=== PATIENT | female | born 1935 | race Hispanic/Latino ===

== ENCOUNTER 2017-10-01 11:43 | Inpatient (IN) | payer BC, MEDICARE ==
[2017-10-01 11:53] VITALS: BMI 24.4
--- NOTE | 2017-10-01 12:13 | ED PDOC ---
Arrival/HPI - General Chief Complaint: Weakness/Neurological Deficit Time Seen by Provider: 10/01/17 11:57 Historian: Patient - History of Present Illness Narrative History of Present Illness (Text): 10/01/17 12:14 82 year old female, with past medical history of hyperlipidemia, hypertension and right knee "shots", presents to the Emergency department complaining of nausea, vomiting and questionable diarrhea since 2 weeks. Patient states she developed mild shortness of breath few days ago and was given Cipro for sinusitis by her PMD. Patient informs developing adverse effects from the Cipro and discontinued taking the medication and was given "shots" for sinusitis. Patient informs generalized weakness and right flank discomfort today and was referred to the Emergency department by Dr. Jay for evaluation. Patient states taking pepto bismul yesterday and noticed black stool today. Patient currently denies any fever, chills, chest pain, shortness of breath, sick contact, recent travel or any other complaints. PMD: Dr. Jay Time/Duration: > week (2 weeks) Symptom Onset: Gradual Symptom Course: Unchanged Quality: Aching Activities at Onset: Light Context: Home Past Medical History - Provider Review Nursing Documentation Reviewed: Yes - Cardiac Hx Hypertension: Yes - Pulmonary Hx Respiratory Disorders: No - Neurological Hx Neurological Disorder: No - HEENT Hx HEENT Disorder: No - Renal Hx Renal Disorder: No - Endocrine/Metabolic Hx Endocrine Disorders: No - Hematological/Oncological Hx Blood Disorders: No - Integumentary Hx Dermatological Disorder: No - Musculoskeletal/Rheumatological Hx Musculoskeletal Disorders: No - Gastrointestinal Hx Gastrointestinal Disorders: No - Genitourinary/Gynecological Hx Genitourinary Disorders: No - Psychiatric Hx Psychophysiologic Disorder: No Hx Substance Use: No - Surgical History Other/Comment: left hip replacement, 3 pins. Family/Social History - Physician Review Nursing Documentation Reviewed: Yes Family/Social History: No Known Family HX Smoking Status: Never Smoked Hx Alcohol Use: No Hx Substance Use: No Allergies/Home Meds Allergies/Adverse Reactions: Allergies Sulfa (Sulfonamide Antibiotics) Allergy (Verified 10/01/17 16:00) ANAPHYLAXIS Home Medications: Home Meds Medication Instructions Recorded Confirmed Atorvastatin [Lipitor] 10 mg PO DAILY 10/01/17 10/01/17 Losartan [Cozaar] 50 mg PO DAILY 10/01/17 10/01/17 Review of Systems - Physician Review All systems were reviewed & negative as marked: Yes - Review of Systems Constitutional: Normal. absent: Fevers Eyes: Normal ENT: Normal Respiratory: Normal. absent: SOB Cardiovascular: Normal. absent: Chest Pain Gastrointestinal: Abdominal Pain (right flank pain), Diarrhea, Nausea, Vomiting Genitourinary Female: Normal Musculoskeletal: Other (generalized weakness) Skin: Normal Neurological: Normal Endocrine: Normal Hemo/Lymphatic: Normal Psychiatric: Normal Physical Exam Vital Signs Reviewed: Yes Vital Signs Temp Pulse Resp BP Pulse Ox 10/01/17 17:02 98.6 F 88 18 103/66 10/01/17 17:00 98.9 F 82 18 119/85 98 10/01/17 15:00 88 18 103/66 99 10/01/17 13:43 95 H 18 108/56 L 97 10/01/17 11:43 98.6 F 121 H 18 141/77 98 Temperature: Afebrile Blood Pressure: Normal Pulse: Tachycardic Respiratory Rate: Normal Appearance: Positive for: Well-Appearing, Non-Toxic, Comfortable Pain Distress: None Mental Status: Positive for: Alert and Oriented X 3 - Systems Exam Head: Present: Atraumatic, Normocephalic Pupils: Present: PERRL Extroacular Muscles: Present: EOMI Conjunctiva: Present: Normal Mouth: Present: Moist Mucous Membranes Neck: Present: Normal Range of Motion Respiratory/Chest: Present: Clear to Auscultation, Good Air Exchange. No: Respiratory Distress, Accessory Muscle Use Cardiovascular: Present: Regular Rate and Rhythm, Normal S1, S2. No: Murmurs Abdomen: Present: Tenderness (right flank tenderness). No: Distention, Peritoneal Signs Back: Present: Normal Inspection Upper Extremity: Present: Normal Inspection. No: Cyanosis, Edema Lower Extremity: Present: Normal Inspection. No: Edema Neurological: Present: GCS=15, CN II-XII Intact, Speech Normal Skin: Present: Warm, Dry, Normal Color. No: Rashes Psychiatric: Present: Alert, Oriented x 3, Normal Insight, Normal Concentration Medical Decision Making ED Course and Treatment: 10/01/17 12:13 Impression: 82 year old female presents to the Emergency department for generalized weakness and right flank pain. Differential Diagnosis included but are not limited to: Gastroenteritis vs medication reaction Plan: -- EKG -- Labs -- Chest X-ray -- pepcid -- Zofran --IV fluids --Urinalysis -- Reassess and disposition Prior Visits: Notes and results from previous visits were reviewed. Progress Notes: 10/01/17 12:13 EKG: Ordered, reviewed, and independently interpreted the EKG. Rate : 109 BPM Rhythm : Sinus tachycardia Interpretation : sinus tachycardia with occasional pvc. Normal axis. 10/01/17 14:13 Chest X-Ray reviewed by radiologist, shows: Alveolar consolidative changes right upper lobe with a component of volume loss. No comparison studies. 10/01/17 14:30 Chest X-Ray shows left upper lobe Pneumonia. Patient will be kept in airborne isolation to rule out Tuberculosis. 10/01/17 14:[address] Moeller, who is aware and agrees with emergency department management plan, accepts patient under her service for admission and requests Dr. White on consult. 10/01/17 15:[address] White, who is aware and agrees with Emergency department management plan, and accepts consult from Dr. Moeller. - Lab Interpretations Microbiology Results: Microbiology Results 10/01/17 13:15 Blood-Venous Blood Culture - Final NO GROWTH AFTER 5 DAYS 10/01/17 13:15 Blood-Venous Gram Stain - Final TEST NOT PERFORMED 10/01/17 13:35 Blood-Venous Blood Culture - Final NO GROWTH AFTER 5 DAYS 10/01/17 13:35 Blood-Venous Gram Stain - Final TEST NOT PERFORMED Lab Results: 10/01/17 12:00 10/01/17 12:00 Lab Results 10/01/17 12:00: Sodium 134, Potassium 4.4, Chloride 99, Carbon Dioxide 24, Anion Gap 16, BUN 18, Creatinine 0.8, Est GFR ( Amer) > 60, Est GFR (Non- Af Amer) > 60, Random Glucose 109, Calcium 10.1, Total Bilirubin 0.7, AST 105 H , ALT 44, Alkaline Phosphatase 151 H, Lactate Dehydrogenase 4758 H, Total Creatine Kinase 170, Troponin I < 0.01, Total Protein 7.0, Albumin 3.9, Globulin 3.1, Albumin/Globulin Ratio 1.3, Amylase 38, Lipase 19 L 10/01/17 12:00: WBC 17.3 H, RBC 3.67, Hgb 11.6 L, Hct 33.1 L, MCV 90.2, MCH 31.6 , MCHC 35.0, RDW 13.1, Plt Count 321, MPV 9.3, Gran % 74.8 H, Lymph % (Auto) 8.5 L, [place] % (Auto) 16.5 H, Eos % (Auto) 0.1 L, Baso % (Auto) 0.1, Gran # 12.90 H, Lymph # (Auto) 1.5, [place] # (Auto) 2.9 H, Eos # (Auto) 0.0, Baso # (Auto ) 0.02 - RAD Interpretation Radiology Orders: 10/01/17 12:15 CHEST PORTABLE [RAD] [employer] Director: Radiologist - EKG Interpretation Interpreted by ED Physician: Yes Type: 12 lead EKG - Medication Orders Current Medication Orders: Discontinued Medications Acetaminophen (Tylenol 325mg Tab) 650 mg PO Q6H PRN PRN Reason: Fever >100.4 F Last Admin: 10/05/17 08:16 Dose: 650 mg MAR Pain/Vitals Document 10/05/17 08:16 (Rec: 10/05/17 08:16 [id number]) Pain Reassessment Is This A Pain ReAssessment? No Sleep Is patient sleeping during reassessment? No Presence of Pain Presence of Pain Yes Pain Scale Used Pain Scale Used Numeric Location Left, Right or Bilateral Right Upper or Lower Upper Pain Location Body Site Chest Intensity 4 Albuterol/Ipratropium (Duoneb 3 Mg/0.5 Mg (3 Ml) Ud) 3 ml IH Q6 [facility] Stop: 10/02/17 06:01 Last Admin: 10/02/17 07:27 Dose: Albuterol/Ipratropium (Duoneb 3 Mg/0.5 Mg (3 Ml) Ud) 3 ml IH [id number] [facility] Last Admin: 10/03/17 13:06 Dose: Not Given Non-Admin Reason: Patient Refused Albuterol/Ipratropium (Duoneb 3 Mg/0.5 Mg (3 Ml) Ud) 3 ml IH TIDRESP [facility] Last Admin: 10/05/17 13:12 Dose: 3 ml Atorvastatin Calcium (Lipitor) 10 mg PO DAILY [facility] Last Admin: 10/05/17 10:19 Dose: 10 mg Azithromycin (Zithromax) 500 mg PO STAT STA PRN Reason: Protocol Stop: 10/01/17 13:17 Last Admin: 10/01/17 13:39 Dose: 500 mg Famotidine (Pepcid) 20 mg IVP STAT STA Stop: 10/01/17 12:14 Last Admin: 10/01/17 12:28 Dose: 20 mg IVP Administration Document 10/01/17 12:28 EWAnika (Rec: 10/01/17 12:28 MARIONAnika [id number]) Charges for Administration # of IVP Administrations 1 Famotidine (Pepcid) 40 mg PO HS LETA Last Admin: 10/04/17 21:12 Dose: 40 mg Heparin Sodium (Porcine) (Heparin) 5,000 units SC Q12 LETA PRN Reason: Protocol Sodium Chloride (Sodium Chloride 0.9%) 500 mls @ 500 mls/hr IV .Q1H LETA Last Admin: 10/01/17 12:29 Dose: 500 mls/hr eMAR Start Stop Document 10/01/17 12:29 EWAnika (Rec: 10/01/17 12:29 JANICE [id number]) Intravenous Solution Start Date 10/01/17 Start Time 12:29 End Date 10/01/17 End time 13:29 Total Infusion Time 60 Ceftriaxone Sodium (Rocephin 1 Gram Ivpb) 1 gm in 100 mls @ 200 mls/hr IVPB STAT STA PRN Reason: Protocol Stop: 10/01/17 13:46 Last Admin: 10/01/17 13:39 Dose: 200 mls/hr eMAR Start Stop Document 10/01/17 13:39 EWAnika (Rec: 10/01/17 13:39 JANICE [id number]) Intravenous Solution Start Date 10/01/17 Start Time 13:39 End Date 10/01/17 End time 14:09 Total Infusion Time 30 Ceftriaxone Sodium (Rocephin 1 Gram Ivpb) 1 gm in 100 mls @ 100 mls/hr IVPB DAILY LETA PRN Reason: Protocol Stop: 10/10/17 10:01 Last Admin: 10/05/17 10:20 Dose: 100 mls/hr eMAR Start Stop Document 10/05/17 10:20 YRodolfo (Rec: 10/05/17 10:20 ANDREW [id number]) Intravenous Solution Start Date 10/05/17 Start Time 10:20 End Date 10/05/17 End time 11:20 Total Infusion Time 60 Azithromycin (Zithromax 500mg In Ns) 500 mg in 250 mls @ 167 mls/hr IVPB DAILY LETA PRN Reason: Protocol Stop: 10/11/17 10:01 Last Admin: 10/05/17 10:20 Dose: 167 mls/hr eMAR Start Stop Document 10/05/17 10:20 Y (Rec: 10/05/17 10:21 [place] [id number]) Intravenous Solution Start Date 10/05/17 Start Time 11:20 End Date 10/05/17 End time 12:50 Total Infusion Time 90 Sodium Chloride (Sodium Chloride 0.45%) 1,000 mls @ 80 mls/hr IV [id number] LETA Stop: 10/04/17 22:00 Lorazepam (Ativan) 1 mg IVP ONCE ONE PRN Reason: Protocol Stop: 10/03/17 10:06 Last Admin: 10/03/17 13:53 Dose: 1 mg IVP Administration Document 10/03/17 13:53 DSZ (Rec: 10/03/17 13:54 DSZ [place] [id number]) Charges for Administration # of IVP Administrations 1 Behavioural Document 10/03/17 13:53 DSZ (Rec: 10/03/17 13:54 DSZ [place] [id number]) Maintenance Maintenance Dose No Nonmedicinal Nonmedicinal Interventions Redirect Therapeutic Communication Comment before MRI Behavior Behavior for Medication: Anxiety Behavior Comment clastrophobia Re-Assess: Reassess Psych Meds Document 10/03/17 14:23 DSZ (Rec: 10/03/17 14:50 DSZ [place] [id number]) Reassess Psych Med Effective Losartan Potassium (Cozaar) 50 mg PO DAILY [facility] Last Admin: 10/05/17 10:19 Dose: 50 mg MAR Pulse and Blood Pressure Document 10/05/17 10:19 YJ (Rec: 10/05/17 10:20 [place] [id number]) Pulse Pulse Rate (60-90 beats/min) 90 Blood Pressure Blood Pressure (100/60-150/90 mm Hg) 131/74 Morphine Sulfate (Morphine) 4 mg IVP STAT STA Stop: 10/04/17 14:50 Last Admin: 10/04/17 14:49 Dose: 4 mg MAR Pain Assessment Document 10/04/17 14:49 YANETH (Rec: 10/08/17 11:23 YANETH [id number]) Pain Reassessment Is this a pain reassessment? No Sleep Is patient sleeping during reassessment? No Presence of Pain Presence of Pain No IVP Administration Document 10/04/17 14:49 YANETH (Rec: 10/08/17 11:23 YANETH [id number]) Charges for Administration # of IVP Administrations 0 Ondansetron HCl (Zofran Inj) 4 mg IVP STAT STA Stop: 10/01/17 12:14 Last Admin: 10/01/17 12:28 Dose: 4 mg IVP Administration Document 10/01/17 12:28 EWO (Rec: 10/01/17 12:28 EWO [id number]) Charges for Administration # of IVP Administrations 1 Ondansetron HCl (Zofran Inj) 4 mg IVP Q6H PRN PRN Reason: Nausea/Vomiting Oxycodone HCl (Oxycodone Immediate Release Tab) 10 mg PO Q6H PRN PRN Reason: Pain, moderate (4-7) Last Admin: 10/04/17 17:46 Dose: 10 mg MAR Pain Assessment Document 10/04/17 17:46 TAV (Rec: 10/04/17 17:49 TAV [id number]) Pain Reassessment Is this a pain reassessment? No Presence of Pain Presence of Pain Yes Pain Scale Used Pain Scale Used Numeric Location Left, Right or Bilateral Right Upper or Lower Lower Pain Location Body Site Abdomen Description Description Constant Intensity of Pain at present 10 Pain Behavior Moaning Guarding Restlessness Aggravating Factors Changing Position Alleviating Factors/Management Medication Techniques Alleviating Factors Medication Phytonadione (Vitamin K Inj) 10 mg SC ONCE STA Stop: 10/03/17 20:57 Last Admin: 10/03/17 21:45 Dose: 10 mg Subcutaneous Administrations Document 10/03/17 21:45 PCO (Rec: 10/03/17 21:45 PCO [id number]) Injection Site MAR Injection Site Right Abdomen Charges for Administration # of Subcutaneous Administrations 1 Pneumococcal Polyvalent Vaccine (Pneumovax 23 Vaccine) 0.5 ml IM .ONCE ONE Stop: 10/01/17 17:32 Zolpidem Tartrate (Ambien) 5 mg PO HS PRN; Protocol PRN Reason: Insomnia - Scribe Statement The provider has reviewed the documentation as recorded by the Scribe Brittany Greene, training under Wojciech La. All medical record entries made by the Scribe were at my direction and personally dictated by me. I have reviewed the chart and agree that the record accurately reflects my personal performance of the history, physical exam, medical decision making, and the department course for this patient. I have also personally directed, reviewed, and agree with the discharge instructions and disposition. Disposition/Present on Arrival - Present on Arrival Any Indicators Present on Arrival: No History of DVT/PE: No History of Uncontrolled Diabetes: No Urinary Catheter: No History of Decub. Ulcer: No History Surgical Site Infection Following: None - Disposition Have Diagnosis and Disposition been Completed?: Yes Diagnosis: Pneumonia Disposition: HOSPITALIZED Disposition Time: 14:46 Isolation: Airborne Patient Plan: Admission Condition: GOOD
[2017-10-01 12:26] LABS: BASO # 0.02 K/mm3 (0.0-2.0); BASO % 0.1 % (0.0-3.0); EOS % 0.1 % (1.5-5.0); GRAN # 12.9 (1.4-6.5); GRAN % 74.8 % (50.0-68.0); HEMOGLOBIN 11.6 g/dL (12.0-16.0); LYMPH # 1.5 (1.2-3.4); LYMPH % 8.5 % (22.0-35.0); MEAN CELL VOLUME 90.2 fl (80.0-105.0); MEAN CORPUSCULAR HEMOGLOBIN 31.6 pg (25.0-35.0); MEAN PLATELET VOLUME 9.3 fl (7.0-11.0); MONO # 2.9 (0.1-0.6); MONO % 16.5 % (1.0-6.0); RBC 3.67 10^6/uL (3.5-6.1); RED CELL DISTRIBUTION WIDTH 13.1 % (11.5-14.5); WHITE BLOOD COUNT 17.3 10^3/ul (4.5-11.0)
[2017-10-01] MEDS ORDERED: Sodium Chloride 0.9% 500 ML IV SCH (12:30)
[2017-10-01 12:40] LABS: ALB/GLOB RATIO 1.3 (1.1-1.8); ALBUMIN 3.9 g/dL (3.0-4.8); ALT/SGPT 44 U/L (7-56); AMYLASE 38 U/L (35-125); AST/SGOT 105 U/L (14-36); BLOOD UREA NITROGEN 18 mg/dL (7-21); CALCIUM 10.1 mg/dL (8.4-10.5); GFR AFRICAN-AMERICAN > 60; GFR NON-AFRICAN AMERICAN > 60; LIPASE 19 U/L (23-300)
[2017-10-01 12:51] LABS: TROPONIN I < 0.01 ng/mL
[2017-10-01] MEDS ORDERED: cefTRIAXone 1 gm 1 GM/100 ML BAG IVPB STA (13:17)
--- NOTE | 2017-10-01 14:10 | RAD ---
HISTORY: shortness of breath COMPARISON: No prior. FINDINGS: LUNGS: Left upper lobe infiltrate with volume loss. PLEURA: No significant pleural effusion identified, no pneumothorax apparent. CARDIOVASCULAR: No radiographic findings to suggest acute or significant cardiovascular disease. OSSEOUS STRUCTURES: No significant abnormalities. VISUALIZED UPPER ABDOMEN: Normal. OTHER FINDINGS: None. IMPRESSION: Alveolar consolidative changes right upper lobe with a component of volume loss. No comparison studies.
[2017-10-01] MEDS ORDERED: Pneumococcal 23-Valent Vaccine IM ONE (17:31)
[2017-10-02] MEDS: Albuterol-Ipratrop 3 mg / 0.5 (3 ml) UD IH SCH ×5 (02:01→20:08)
--- NOTE | 2017-10-02 08:54 | CARD ---
APPROVED REPORT EKG Measurement Heart [id number] MD [id number] <Conclusion> Sinus tachycardia with one premature ventricular complex PRWP NSSTW changes
[2017-10-02] MEDS: Azithromycin 500MG/NS 250ml 500 MG/250 ML BAG IVPB SCH (09:03)
[2017-10-02] MEDS: cefTRIAXone 1 gm 1 GM/100 ML BAG IVPB SCH (09:03)
[2017-10-02] MEDS ORDERED: Iohexol 240 (50 ml) ONE (09:33)
[2017-10-02 12:39] LABS: HEPATITIS B SURFACE AG Negative (NEGATIVE)
[2017-10-02 12:45] LABS: HEPATITIS A IGM NEGATIVE (NEGATIVE); HEPATITIS B CORE AB NEGATIVE (NEGATIVE)
[2017-10-02 12:56] LABS: HEPATITIS C ANTIBODY NEGATIVE (NEGATIVE)
--- NOTE | 2017-10-02 14:10 | CT ---
PROCEDURE: CT Chest, Abdomen and Pelvis without intravenous contrast HISTORY: Pneumonia, tuberculosis suspected. Gallbladder disease suspected. COMPARISON: None. TECHNIQUE: Oral contrast only. Radiation dose: Total exam DLP = 533.52 mGy-cm. This CT exam was performed using one or more of the following dose reduction techniques: Automated exposure control, adjustment of the mA and/or kV according to patient size, and/or use of iterative reconstruction technique. FINDINGS: CT CHEST WITHOUT CONTRAST: LUNGS: Clear. No nodule, mass or consolidation. MEDIASTINUM: The extensive mediastinal adenopathy including superior mediastinum, middle mediastinum. Bulky disease extends to the right hilum. There is substantial narrowing of the right upper lobe bronchus which measures less than 4 mm. There is postobstructive pneumonitis with volume loss in the right upper lobe and a peripheral pulmonary nodule 1.2 compensatory hyperinflation of the right lower lobe. No suspicious findings in the left lung. LYMPH NODES: Mediastinal and hilar adenopathy is less extensive. PLEURA: Unremarkable. No pneumothorax. No pleural fluid. BONES: Dextroscoliosis, mild. No suspicious osseous abnormalities. OTHER FINDINGS: Heterogeneous thyroid with intrathoracic extension and a cystic nodule, mass elective thyroid ultrasound recommended. CT ABDOMEN AND PELVIS: LIVER: Extensive hepatic metastatic disease with large masses in both lobes of the liver. The largest lesion in the right hepatic lobe is either hemorrhagic or contains associated calcifications. This mass measures 8 x 8.7 cm. . GALLBLADDER AND BILE DUCTS: Cholelithiasis without CT evidence of acute cholecystitis. PANCREAS: Unremarkable. No gross lesion or ductal dilatation. SPLEEN: Unremarkable. ADRENALS: Enlargement of both adrenal glands particularly the left suspicious for metastatic disease. KIDNEYS AND URETERS: Unremarkable. No hydronephrosis. No solid mass. VASCULATURE: Unremarkable. No aortic aneurysm. BOWEL: Unremarkable. No obstruction. No gross mural thickening. APPENDIX: Normal appendix. PERITONEUM: Unremarkable. No free fluid. No free air. LYMPH NODES: Retroperitoneal, are peripancreatic lymphadenopathy. Tumor is inseparable from the pancreas, sensitivity diminished by absence of intravenous contrast. BLADDER: Unremarkable. REPRODUCTIVE: Unremarkable. BONES: No acute fracture. Grade 1 anterolisthesis L4-5 with associated spondylolysis. OTHER FINDINGS: Atrophy in the adductor muscles and gluteal muscles on the right. IMPRESSION: 1. Extensive tumor in the thorax primarily tumor invading the right upper lobe bronchus with directs extension into the right hilum. Mediastinal adenopathy is considerable. Circumferential narrowing of the right upper lobe bronchus (2 mm lumen) has resulted in postobstructive pneumonitis. A peripheral 10 mm pulmonary nodule identified. 2. Hepatomegaly, widely disseminated hepatic metastatic disease. Likely necrotic/hemorrhagic metastasis accounting for findings in the right lobe. 3. Upper abdominal/ retroperitoneal adenopathy. 4. Enlarged adrenal glands bilaterally suspicious for tumor. Incidental findings: Cholelithiasis without CT evidence of acute cholecystitis. Intrathoracic extension of the left thyroid lobe with a 2 cm cystic nodule. Elective followup recommended
[2017-10-02] MEDS ORDERED: oxyCODONE 10 mg Immediate Release Tab PO PRN (17:30)
--- NOTE | 2017-10-02 17:59 | HP ---
DATE OF EXAM: 10/01/2017 HISTORY OF PRESENT ILLNESS: Ms. Lee is an 82-year-old female presented to the ED with nausea and vomiting, diarrhea for 2 weeks. She was feeling weak and tired, cough with expectoration. no fever. She has got Cipro as outpatient which did not relieve her symptoms. Also, complaining of generalized abdominal pain, shortness of breath. Chest x-ray showed right upper lobe infiltrate, done in the ED. She has history of hypertension, blood pressure controlled with current medication. She was in good health prior to admission to the hospital. Denies any weight loss. PAST MEDICAL HISTORY: Hypertension. PAST SURGICAL HISTORY: Left hip replacement. PERSONAL HISTORY: Never smoked. No history of alcohol abuse. FAMILY HISTORY: Noncontributory. No positive family history in mother or father. SOCIAL HISTORY: Lives at home. ALLERGIES: SULFA CAUSES ANAPHYLAXIS. HOME MEDICATIONS: Lipitor 10 mg daily, Cozaar 50 mg daily. REVIEW OF SYSTEMS: As per HPI. Rest of 12-point review of systems reviewed negative. PHYSICAL EXAMINATION: GENERAL: Comfortable in bed,in no acute distress. VITAL SIGNS: Temperature 98.6, heart rate 88 per minute, respiratory rate 18 per minute, blood pressure 103/66, pulse ox is 99% on room air. HEENT: Pallor positive. NECK: No lymphadenopathy. CHEST: Bilateral rhonchi present, bilateral crepitations present. Air entry decreased on the right side. ABDOMEN: Soft and nontender. No hepatosplenomegaly. EXTREMITIES: No edema. CENTRAL NERVOUS SYSTEM: Alert, oriented x3. No focal sensory motor deficit. SKIN: Warm and dry. No rash. LABORATORY DATA: White count 17.3, hemoglobin 11.6, hematocrit 33.1, platelet 321. Sodium 134, potassium 4.4, BUN 18, creatinine 0.8, and glucose 109. Chest x-ray, right upper lobe infiltrate. Received Zithromax and ceftriaxone in the ED. ASSESSMENT: 1. Right upper lobe pneumonia. 2. Hypertension. 3. Rule out tuberculosis. PLAN: She will be admitted to the hospital with respiratory isolation, ID consultation of Dr. White requested. Urine culture, blood culture sent. Ceftriaxone and Zithromax will be continued for right upper lobe pneumonia. We will continue antihypertensive, losartan 50 mg daily. Continue Lipitor 10 mg daily, Tylenol 650 every 6 hours p.r.n. No pain issues. We will continue to monitor blood work closely. Leukocytosis, white count 17.3, likely related to pneumonia. We will send also UA, urine culture. Hepatitis B and C serologies requested. Annia Moeller MD
--- NOTE | 2017-10-02 18:29 | PN ---
DATE: 10/02/2017 FOLLOWUP NOTE SUBJECTIVE: She is comfortable in bed, in no acute distress. She has afebrile during the hospitalization. Current temperature is 98.7. Cough has improved slightly. No expectoration. No chest pain. No shortness of breath. REVIEW OF SYSTEMS: As per HPI. Rest of 12-point review of systems reviewed negative. MEDICATIONS: Lipitor 10 g daily, Zithromax 500 daily IV, ceftriaxone 1 g daily IV, Cozaar 50 mg daily. PHYSICAL EXAMINATION: GENERAL: Comfortable in bed, in no acute distress. VITAL SIGNS: Temperature 98.7, heart rate 100 per minute, blood pressure 120/56, respiratory rate 18 per minute, oxygen saturation 98% on room air. HEENT: Pallor positive. NECK: No lymphadenopathy. CHEST: Air entry decreased bilateral. CARDIOVASCULAR: Tachycardia present. ABDOMEN: Soft, nontender. No hepatosplenomegaly. EXTREMITIES: No edema. SPINE: Nontender. SKIN: No petechiae. No rash. LABORATORY DATA: White count 17.3, hemoglobin 11.6, hematocrit 33.1, platelet count 321. [id number], potassium 4.4, creatinine 0.8. CT chest, abdomen and pelvis ordered. CT chest showed extensive bulky tumor in the right hilar area giving to postobstructive pneumonia, bulky metastatic disease in the liver, retroperitoneal lymphadenopathy. ASSESSMENT: 1. Possible lung cancer with metastatic disease in the abdomen - liver, nodes. 2. Postobstructive pneumonia. 3. Hypertension. 4. Leukocytosis. PLAN: CT chest, abdomen and pelvis done today, imaging reviewed as dictated above. We will discuss with the family tomorrow these CAT scan findings. We will arrange for CT-guided biopsy, either of the lung or from the liver based on the accessibility of the lesion. I will discuss with Dr. Tejas Msoher tomorrow. We will continue IV antibiotic, ceftriaxone and Zithromax. We will add the DuoNeb every 6 hours scheduled and p.r.n. Oxycodone p.r.n. for pain. We will do Pepcid 20 mg IV daily. We will discuss with Dr. White. respiratory isolation can be discontinued. Annia Moeller MD MTDD
--- NOTE | 2017-10-02 20:30 | CON ---
DATE: 10/02/2017 LOCATION: The patient is seen in room 575, bed 1. CHIEF COMPLAINT: Abdominal pain times 2 weeks. HISTORY OF PRESENT ILLNESS: This is an 82-year-old female with past medical history significant only for hypertension and hyperlipidemia who is admitted with complaints of nausea, vomiting, occasional diarrhea, abdominal pain. She had shortness of breath, was given Cipro for sinusitis by her primary and developed SIDE EFFECTS TO CIPRO and she stopped taking the medication, was given questionable intravenous or IM injections for her sinusitis and now is here with abdominal pain. The patient is coughing. In the Emergency Room, she was found to have an upper lobe infection, tuberculosis was entertained. Infectious Disease consultation requested. The patient states that she feels weak. She is having fevers. She has no chills. She does have cough, it is productive, yellowish in color. She has had weight loss, although by 5 pounds in the past week or two since she has been ill. She denies any dysuria or frequency and no headaches. PAST MEDICAL HISTORY: Significant for hypertension, hyperlipidemia, and cataract. PAST SURGICAL HISTORY: Significant for bilateral cataract surgery and thyroid surgery. With the thyroid surgery, she had radiation. ALLERGIES: THE PATIENT HAS ALLERGIES TO SULFA. MEDICATIONS AT HOME: Include losartan and atorvastatin. PHYSICAL EXAMINATION: GENERAL: She is in bed, in no acute distress, answering questions. VITAL SIGNS: Temperature of 101.2; heart rate of 102, it was up to 121; blood pressure is 121/62; O2 saturation is at 95% on room air. The patient's BMI is 24.4. HEENT: Unremarkable. NECK: Supple. LUNGS: Have decreased breath sounds. HEART: Normal S1, S2. ABDOMEN: Soft, nontender. No rebound or guarding. No masses. LABORATORY DATA: Reveals a white count of 17,300, hemoglobin of 11, platelets of 321, 74% granulocytosis. Chemistries reveal AST is 105, ALT is 151, LDH is 4758, lipase is 19, amylase of 38. The patient had a chest x-ray, which was reported to be left upper lobe infiltrate versus volume loss, alveolar consolidative changes in the right upper lobe. It was initially read as the left upper lobe. Reviewed a chest x-ray, appears to be a right upper lobe and right lower lobe. ASSESSMENT AND PLAN: She is an 82-year-old female with hypertension, hyperlipidemia, cataract, abdominal pain, nausea, and vomiting, now has sepsis with community-acquired pneumonia, must rule out Legionella.,due to long smoking hx malignancy is must be entertained doubt tuberculosis. This patient was born in [facility], has never been outside of [place], never had any travel, has never had any exposure to tuberculosis. She is a long-time smoker, just stopped a year ago. No alcohol abuse. We will treat the patient with azithromycin and ceftriaxone. We will order a urinalysis, urine culture, blood cultures, QuantiFERON, and do a vasculitis workup. We will also order a CT of the abdomen and pelvis to try to explain the nausea and vomiting that she initially started, possible gallbladder disease; hepatitis profile and procalcitonin, TB workup, Legionella workup, and we will follow closely with you. Isidro White MD MTDD
[2017-10-03] MEDS: Albuterol-Ipratrop 3 mg / 0.5 (3 ml) UD IH SCH ×5 (02:35→20:35)
[2017-10-03 07:27] LABS: BASO # 0.02 K/mm3 (0.0-2.0); BASO % 0.2 % (0.0-3.0); EOS # 0.1 (0.0-0.7); EOS % 0.4 % (1.5-5.0); GRAN # 8.24 (1.4-6.5); GRAN % 73.8 % (50.0-68.0); HEMOGLOBIN 9.7 g/dL (12.0-16.0); LYMPH # 1.4 (1.2-3.4); LYMPH % 12.5 % (22.0-35.0); MEAN CELL VOLUME 89.3 fl (80.0-105.0); MEAN CORPUSCULAR HEMOGLOBIN 30.4 pg (25.0-35.0); MEAN PLATELET VOLUME 9.3 fl (7.0-11.0); MONO # 1.5 (0.1-0.6); MONO % 13.1 % (1.0-6.0); RBC 3.19 10^6/uL (3.5-6.1); WHITE BLOOD COUNT 11.2 10^3/ul (4.5-11.0)
[2017-10-03 07:46] LABS: ALB/GLOB RATIO 1.1 (1.1-1.8); ALBUMIN 3.4 g/dL (3.0-4.8); ALT/SGPT 56 U/L (7-56); AST/SGOT 86 U/L (14-36); BLOOD UREA NITROGEN 11 mg/dL (7-21); CALCIUM 8.8 mg/dL (8.4-10.5); GFR AFRICAN-AMERICAN > 60; GFR NON-AFRICAN AMERICAN > 60
--- NOTE | 2017-10-03 09:30 | US ---
HISTORY: size of CBD COMPARISON: None. TECHNIQUE: Sonographic evaluation of the abdomen. FINDINGS: LIVER: Enlarged liver with heterogeneous echogenicity and a large left lobe mass measuring 7.2 centimeters. Additional large right lobe masses measuring 8.0 centimeters and 9.0 centimeters. GALLBLADDER: Gallstones. COMMON BILE DUCT: Measures mm. No stones. No dilatation. PANCREAS: Unremarkable as visualized. No mass. No ductal dilatation. RIGHT KIDNEY: Measures cm. Normal echogenicity. No calculus, mass, or hydronephrosis. LEFT KIDNEY: Measures cm. Normal echogenicity. No calculus, mass, or hydronephrosis. SPLEEN: Normal in size and contour. No mass. AORTA: No aneurysmal dilatation. IVC: Unremarkable. OTHER FINDINGS: None. IMPRESSION: Multiple large hepatic masses. Gallstones.
--- NOTE | 2017-10-03 10:11 | CP.PCM.PN ---
<Pepper Gordillo - Last Filed: 10/03/17 10:06> Subjective - Date & Time of Evaluation Date of Evaluation: 10/03/17 Time of Evaluation: 07:00 - Subjective Subjective: Medicine Progress Note for Darrell Wilde PGY3 Patient seen and examined at bedside. Patient reports she did not sleep well overnight due to isolation room. Patient was deemed to not need isolation and it was d/c. As per nursing staff, patient had Tmax of 100.5 overnight. This am, patient complains of dry cough. She denies chest pain, shortness of breath, nausea/vomiting/diarrhea, numbness/tingling, dysuria/hematuria or pain. Objective - Vital Signs/Intake and Output Vital Signs (last 24 hours): Temp Pulse Resp BP Pulse Ox 98.5 F 101 H 20 115/70 97 10/03/17 06:00 10/03/17 06:00 10/03/17 06:00 10/03/17 06:00 10/03/17 06:00 Intake and Output: 10/03/17 10/03/17 06:59 18:59 Intake Total 720 Balance 720 - Medications Medications: Current Medications Acetaminophen (Tylenol 325mg Tab) 650 mg PO Q6H PRN PRN Reason: Fever >100.4 F Last Admin: 10/02/17 17:42 Dose: 650 mg Albuterol/Ipratropium (Duoneb 3 Mg/0.5 Mg (3 Ml) Ud) 3 ml IH [id number] [facility] Last Admin: 10/03/17 07:27 Dose: Not Given Atorvastatin Calcium (Lipitor) 10 mg PO DAILY [facility] Last Admin: 10/02/17 09:03 Dose: 10 mg Ceftriaxone Sodium (Rocephin 1 Gram Ivpb) 1 gm in 100 mls @ 100 mls/hr IVPB DAILY [facility] PRN Reason: Protocol Stop: 10/10/17 10:01 Last Admin: 10/02/17 09:03 Dose: 100 mls/hr Azithromycin (Zithromax 500mg In Ns) 500 mg in 250 mls @ 167 mls/hr IVPB DAILY [facility] PRN Reason: Protocol Stop: 10/11/17 10:01 Last Admin: 10/02/17 09:03 Dose: 167 mls/hr Lorazepam (Ativan) 1 mg IVP ONCE ONE PRN Reason: Protocol Stop: 10/03/17 10:06 Losartan Potassium (Cozaar) 50 mg PO DAILY [facility] Last Admin: 10/02/17 09:03 Dose: 50 mg Oxycodone HCl (Oxycodone Immediate Release Tab) 10 mg PO Q6H PRN PRN Reason: Pain, moderate (4-7) - Labs Labs: 10/03/17 07:20 10/03/17 07:20 - Constitutional Appears: No Acute Distress - Head Exam Head Exam: ATRAUMATIC, NORMAL INSPECTION, NORMOCEPHALIC - Eye Exam Eye Exam: Normal appearance Pupil Exam: NORMAL ACCOMODATION - ENT Exam ENT Exam: Mucous Membranes Moist - Respiratory Exam Respiratory Exam: Clear to Ausculation Bilateral, NORMAL BREATHING PATTERN. absent: Rales, Rhonchi, Wheezes - Cardiovascular Exam Cardiovascular Exam: REGULAR RHYTHM, +S1, +S2. absent: Gallop, Rubs, Murmur - GI/Abdominal Exam GI & Abdominal Exam: Soft, Normal Bowel Sounds. absent: Rigid, Tenderness, Mass , Rebound - Extremities Exam Extremities Exam: absent: Pedal Edema - Neurological Exam Neurological Exam: Alert, Awake, CN II-XII Intact, Oriented x3 - Psychiatric Exam Psychiatric exam: Normal Affect, Normal Mood - Skin Skin Exam: Dry, Warm Assessment and Plan - Assessment and Plan (Free Text) Assessment: This is an 82yo female with past medical history of HTN, dyslipidemia, former heavy smoker who was admitted for 1. Post obstructive pneumonia - secondary to R lung ca partially obstructing R bronchus - unlikely tuberculosis 2. Lung ca - seen on CT with possible liver mets- seen on US and CT 3. HTN 4. Dyslipidemia Plan: Oncology on consult. Imaging was reviewed. Abdominal US showed large liver masses. Patient will have brain MRI to r/o mets. ID is also on consult. Patient is on Rocephin and Zithromax. Continue pain control and Duonebs. Continue Lipitor and Cozaar. Oncology discussed possible lung biopsy as per IR. Will await after MRI results. Patient is on GI and DVT prophylaxis. Case seen, discussed and reviewed with Dr. Zaragoza. Darrell Gordillo PGY3 <Dion Zaragoza - Last Filed: 10/04/17 18:25> Objective - Vital Signs/Intake and Output Vital Signs (last 24 hours): Temp Pulse Resp BP Pulse Ox 98 F 115 H 18 168/77 H 95 10/04/17 16:22 10/04/17 17:40 10/04/17 17:40 10/04/17 17:40 10/04/17 16:53 Intake and Output: 10/04/17 10/04/17 06:59 18:59 Intake Total 100 Balance 100 - Medications Medications: Current Medications Acetaminophen (Tylenol 325mg Tab) 650 mg PO Q6H PRN PRN Reason: Fever >100.4 F Last Admin: 10/02/17 17:42 Dose: 650 mg Albuterol/Ipratropium (Duoneb 3 Mg/0.5 Mg (3 Ml) Ud) 3 ml IH TIDRESP [facility] Last Admin: 10/04/17 13:39 Dose: Not Given Atorvastatin Calcium (Lipitor) 10 mg PO DAILY [facility] Last Admin: 10/04/17 10:03 Dose: 10 mg Famotidine (Pepcid) 40 mg PO HS [facility] Last Admin: 10/03/17 21:44 Dose: 40 mg Heparin Sodium (Porcine) (Heparin) 5,000 units SC Q12 [facility] PRN Reason: Protocol Ceftriaxone Sodium (Rocephin 1 Gram Ivpb) 1 gm in 100 mls @ 100 mls/hr IVPB DAILY [facility] PRN Reason: Protocol Stop: 10/10/17 10:01 Last Admin: 10/04/17 10:03 Dose: 100 mls/hr Azithromycin (Zithromax 500mg In Ns) 500 mg in 250 mls @ 167 mls/hr IVPB DAILY [facility] PRN Reason: Protocol Stop: 10/11/17 10:01 Last Admin: 10/03/17 14:51 Dose: 167 mls/hr Sodium Chloride (Sodium Chloride 0.45%) 1,000 mls @ 80 mls/hr IV .[id number] [facility] Stop: 10/04/17 22:00 Losartan Potassium (Cozaar) 50 mg PO DAILY [facility] Last Admin: 10/04/17 10:03 Dose: 50 mg Ondansetron HCl (Zofran Inj) 4 mg IVP Q6H PRN PRN Reason: Nausea/Vomiting Oxycodone HCl (Oxycodone Immediate Release Tab) 10 mg PO Q6H PRN PRN Reason: Pain, moderate (4-7) Last Admin: 10/04/17 17:46 Dose: 10 mg Zolpidem Tartrate (Ambien) 5 mg PO HS PRN; Protocol PRN Reason: Insomnia - Labs Labs: 10/04/17 10:45 10/04/17 10:45 PT 14.6 SECONDS (9.4-12.5) H 10/04/17 10:45 INR 1.26 (0.93-1.08) H 10/04/17 10:45 APTT 27.8 Seconds (25.1-36.5) 10/04/17 10:45 Assessment and Plan - Assessment and Plan (Free Text) Plan: Pt seen and examined yesterday. This is a late entry. I have reviewed the note of the medical practice administrator and agree with it. I have discussed the assessment and plan with the resident. I have reviewed the patient's labs and medications.Pt was given the news about her lung mass and liver mass. She is on Abx. Spoke to Dr Moeller. Cecelia for Dyslipidemia. Brayan for HTN.
[2017-10-03] MEDS: cefTRIAXone 1 gm 1 GM/100 ML BAG IVPB SCH (10:24)
[2017-10-03 10:53] LABS: URINE BILIRUBIN NEGATIVE (NEGATIVE); URINE BLOOD NEGATIVE (NEGATIVE); URINE GLUCOSE (UA) NEGATIVE (NEGATIVE); URINE LEUKOCYTE ESTERASE NEGATIVE Leu/uL (NEGATIVE); URINE PROTEIN NEGATIVE mg/dL (<30 mg/dL); URINE UROBILINOGEN 0.2 E.U./dL (<1 E.U./dL)
[2017-10-03 11:08] LABS: URINE APPEARANCE CLEAR (CLEAR); URINE COLOR LIGHT YELLOW (YELLOW)
[2017-10-03] MEDS ORDERED: Gadodiamide 287 MG/ML VIAL (15ML) IV ONE (14:18)
[2017-10-03] MEDS: Azithromycin 500MG/NS 250ml 500 MG/250 ML BAG IVPB SCH (14:51)
--- NOTE | 2017-10-03 16:45 | MRI ---
PROCEDURE: MRI BRAIN WITH AND WITHOUT CONTRAST HISTORY: Rule out metastases in a patient with a history of lung carcinoma. . COMPARISON: No prior study available for comparison TECHNIQUE: Multiplanar, multisequence MR images of the brain were obtained with and without intravenous contrast enhancement. Approximately 15 cc Omniscan contrast material injected for this exam. Note that the study is limited by motion artifact. FINDINGS: HEMORRHAGE: No acute parenchymal, subarachnoid or extra-axial hemorrhage. . There is a tiny focus of dark T2 signal in the left posterior temporal subcortical region that seen on axial gradient echo weighted sequence series 7, image number 13 which could represent a tiny calcification or focal area of hemosiderin deposition. No other additional of foci of similar signal seen. DWI: No evidence of an acute or early subacute infarctio on diffusion imaging. . BRAIN PARENCHYMA: Re- demonstrated are moderate to fairly significant diffuse and confluent chronic periventricular white matter ischemic changes that extend peripherally into the deep and subcortical regions of both cerebral hemispheres. Multiple more discrete chronic appearing lacunar type infarcts scattered about the deep and subcortical white matter as well as both basal nuclei/ coronal radiata. None of these changes exhibit restricted diffusion or contrast enhancement. No enhancing parenchymal nor extra-axial masses or collections seen at this time to suggest brain metastases. No evidence of abnormal meningeal enhancement. Continued followup interval recommended for surveillance Moderate generalized volume loss. . ENHANCEMENT: As above. VENTRICLES: No obstructive hydrocephalus. CRANIUM: Unremarkable. ORBITS: Changes of bilateral cataract surgery. Orbits and contents otherwise unremarkable PARANASAL SINUSES/MASTOIDS: Clear VASCULAR SYSTEM: The visualized major vascular flow voids at skull base appear patent OTHER FINDINGS: None . IMPRESSION: Limited motion degraded study. No evidence of acute intracranial hemorrhage however there is a small focus of dark T2 signal left posterior temporal region that could represent a nonspecific calcification or hemosiderin deposit. Moderate to significant chronic white matter and basal nuclei ischemic changes. No evidence of acute infarct Moderate generalized volume loss. No enhancing lesions seen to suggest metastases.
[2017-10-03 20:07] LABS: INR 1.19 (0.93-1.08); PARTIAL THROMBOPLASTIN TIME 28.8 Seconds (25.1-36.5); PROTHROMBIN TIME 13.6 SECONDS (9.4-12.5)
[2017-10-03] MEDS ORDERED: Phytonadione 10 mg/ml Inj (Adult) SC STA (20:56)
--- NOTE | 2017-10-03 21:06 | CP.PCM.PN ---
Subjective - Date & Time of Evaluation Date of Evaluation: 10/03/17 Time of Evaluation: 10:45 - Subjective Subjective: Patient is resting comfortably in bed, no fevers. Objective - Vital Signs/Intake and Output Vital Signs (last 24 hours): Temp Pulse Resp BP Pulse Ox 98.4 F 102 H 16 107/61 94 L 10/03/17 17:30 10/03/17 17:30 10/03/17 17:30 10/03/17 17:30 10/03/17 17:30 - Medications Medications: Current Medications Acetaminophen (Tylenol 325mg Tab) 650 mg PO Q6H PRN PRN Reason: Fever >100.4 F Last Admin: 10/02/17 17:42 Dose: 650 mg Albuterol/Ipratropium (Duoneb 3 Mg/0.5 Mg (3 Ml) Ud) 3 ml IH TIDRESP [facility] Last Admin: 10/03/17 20:35 Dose: 3 ml Atorvastatin Calcium (Lipitor) 10 mg PO DAILY [facility] Last Admin: 10/03/17 10:26 Dose: 10 mg Famotidine (Pepcid) 40 mg PO HS [facility] Heparin Sodium (Porcine) (Heparin) 5,000 units SC Q12 [facility] PRN Reason: Protocol Ceftriaxone Sodium (Rocephin 1 Gram Ivpb) 1 gm in 100 mls @ 100 mls/hr IVPB DAILY [facility] PRN Reason: Protocol Stop: 10/10/17 10:01 Last Admin: 10/03/17 10:24 Dose: 100 mls/hr Azithromycin (Zithromax 500mg In Ns) 500 mg in 250 mls @ 167 mls/hr IVPB DAILY [facility] PRN Reason: Protocol Stop: 10/11/17 10:01 Last Admin: 10/03/17 14:51 Dose: 167 mls/hr Losartan Potassium (Cozaar) 50 mg PO DAILY [facility] Last Admin: 10/03/17 10:25 Dose: 50 mg Oxycodone HCl (Oxycodone Immediate Release Tab) 10 mg PO Q6H PRN PRN Reason: Pain, moderate (4-7) Zolpidem Tartrate (Ambien) 5 mg PO HS PRN; Protocol PRN Reason: Insomnia - Labs Labs: 10/03/17 07:20 10/03/17 07:20 PT 13.6 SECONDS (9.4-12.5) H 10/03/17 19:35 INR 1.19 (0.93-1.08) H 10/03/17 19:35 APTT 28.8 Seconds (25.1-36.5) 10/03/17 19:35 - Constitutional Appears: Non-toxic, Chronically Ill - Head Exam Head Exam: NORMAL INSPECTION - ENT Exam ENT Exam: Mucous Membranes Moist - Neck Exam Neck Exam: absent: Meningismus - Respiratory Exam Respiratory Exam: Decreased Breath Sounds - Cardiovascular Exam Cardiovascular Exam: +S1, +S2 - GI/Abdominal Exam GI & Abdominal Exam: Soft. absent: Tenderness Assessment and Plan - Assessment and Plan (Free Text) Plan: Assessment community-acquired pneumonia, associated with post-obstructive pneumonitis with thoracic tumor Plan Continue Rocephin and Zithromax day 2 to complete 5-7 days overall prognosis is poor
--- NOTE | 2017-10-04 05:13 | CP.PCM.PN ---
<Pepper Gordillo - Last Filed: 10/04/17 08:45> Subjective - Date & Time of Evaluation Date of Evaluation: 10/04/17 Time of Evaluation: 07:36 - Subjective Subjective: Medicine Progress Note for Darrell Wilde PGY3 Patient seen and examined at bedside. There were no acute overnight events as per nursing staff. Patient reports her cough and shortness of breath have improved. Her cough is dry without mucus production. She denies chest pain, fever/chills, numbness/tingling, hematuria/dysuria, nausea/vomiting/diarrhea. Objective - Vital Signs/Intake and Output Vital Signs (last 24 hours): Temp Pulse Resp BP Pulse Ox 98.5 F 105 H 22 115/72 94 L 10/03/17 22:00 10/03/17 22:00 10/03/17 22:00 10/03/17 22:00 10/03/17 22:00 - Medications Medications: Current Medications Acetaminophen (Tylenol 325mg Tab) 650 mg PO Q6H PRN PRN Reason: Fever >100.4 F Last Admin: 10/02/17 17:42 Dose: 650 mg Albuterol/Ipratropium (Duoneb 3 Mg/0.5 Mg (3 Ml) Ud) 3 ml IH TIDRESP [facility] Last Admin: 10/03/17 20:35 Dose: 3 ml Atorvastatin Calcium (Lipitor) 10 mg PO DAILY [facility] Last Admin: 10/03/17 10:26 Dose: 10 mg Famotidine (Pepcid) 40 mg PO HS [facility] Last Admin: 10/03/17 21:44 Dose: 40 mg Heparin Sodium (Porcine) (Heparin) 5,000 units SC Q12 [facility] PRN Reason: Protocol Ceftriaxone Sodium (Rocephin 1 Gram Ivpb) 1 gm in 100 mls @ 100 mls/hr IVPB DAILY [facility] PRN Reason: Protocol Stop: 10/10/17 10:01 Last Admin: 10/03/17 10:24 Dose: 100 mls/hr Azithromycin (Zithromax 500mg In Ns) 500 mg in 250 mls @ 167 mls/hr IVPB DAILY [facility] PRN Reason: Protocol Stop: 10/11/17 10:01 Last Admin: 10/03/17 14:51 Dose: 167 mls/hr Losartan Potassium (Cozaar) 50 mg PO DAILY [facility] Last Admin: 10/03/17 10:25 Dose: 50 mg Oxycodone HCl (Oxycodone Immediate Release Tab) 10 mg PO Q6H PRN PRN Reason: Pain, moderate (4-7) Zolpidem Tartrate (Ambien) 5 mg PO HS PRN; Protocol PRN Reason: Insomnia - Labs Labs: 10/03/17 07:20 10/03/17 07:20 PT 13.6 SECONDS (9.4-12.5) H 10/03/17 19:35 INR 1.19 (0.93-1.08) H 10/03/17 19:35 APTT 28.8 Seconds (25.1-36.5) 10/03/17 19:35 - Constitutional Appears: No Acute Distress - Head Exam Head Exam: ATRAUMATIC, NORMAL INSPECTION, NORMOCEPHALIC - Eye Exam Eye Exam: Normal appearance, PERRL Pupil Exam: NORMAL ACCOMODATION - ENT Exam ENT Exam: Mucous Membranes Moist - Respiratory Exam Respiratory Exam: Wheezes (RUQ ), NORMAL BREATHING PATTERN. absent: Rales, Rhonchi, Stridor - Cardiovascular Exam Cardiovascular Exam: REGULAR RHYTHM, +S1, +S2. absent: Gallop, Rubs, Murmur - GI/Abdominal Exam GI & Abdominal Exam: Soft, Normal Bowel Sounds. absent: Tenderness, Mass, Rebound - Extremities Exam Extremities Exam: Normal Inspection. absent: Calf Tenderness, Pedal Edema - Neurological Exam Neurological Exam: Alert, Awake, CN II-XII Intact - Skin Skin Exam: Dry, Warm Assessment and Plan - Assessment and Plan (Free Text) Assessment: This is an 82yo female with past medical history of HTN, dyslipidemia, former heavy smoker who was admitted for 1. Post obstructive pneumonia - secondary to R lung ca partially obstructing R bronchus - unlikely tuberculosis 2. Lung ca - seen on CT with possible liver mets- seen on US and CT - brain MRI negative for mets 3. HTN 4. Dyslipidemia Plan: Continue Rocephin and Zithromax as per ID. Septic workup negative for legionella , and HIV. Hep panel negative. Continue home medications such as Lipitor, and Cozaar. Pain is controlled. Oncology on consult. Patient will get biopsy of the liver today. Continue GI and DVT prophylaxis. Case seen, reviewed and discussed with Darrell Wilde PGY3 <Dion Zaragoza S - Last Filed: 10/04/17 19:14> Objective - Vital Signs/Intake and Output Vital Signs (last 24 hours): Temp Pulse Resp BP Pulse Ox 100.1 F H 97 H 18 138/60 95 10/04/17 18:31 10/04/17 18:00 10/04/17 18:00 10/04/17 18:00 10/04/17 16:53 Intake and Output: 10/04/17 10/05/17 18:59 06:59 Intake Total 100 Balance 100 - Medications Medications: Current Medications Acetaminophen (Tylenol 325mg Tab) 650 mg PO Q6H PRN PRN Reason: Fever >100.4 F Last Admin: 10/04/17 18:31 Dose: 650 mg Albuterol/Ipratropium (Duoneb 3 Mg/0.5 Mg (3 Ml) Ud) 3 ml IH TIDRESP [facility] Last Admin: 10/04/17 13:39 Dose: Not Given Atorvastatin Calcium (Lipitor) 10 mg PO DAILY [facility] Last Admin: 10/04/17 10:03 Dose: 10 mg Famotidine (Pepcid) 40 mg PO HS [facility] Last Admin: 10/03/17 21:44 Dose: 40 mg Heparin Sodium (Porcine) (Heparin) 5,000 units SC Q12 [facility] PRN Reason: Protocol Ceftriaxone Sodium (Rocephin 1 Gram Ivpb) 1 gm in 100 mls @ 100 mls/hr IVPB DAILY [facility] PRN Reason: Protocol Stop: 10/10/17 10:01 Last Admin: 10/04/17 10:03 Dose: 100 mls/hr Azithromycin (Zithromax 500mg In Ns) 500 mg in 250 mls @ 167 mls/hr IVPB DAILY [facility] PRN Reason: Protocol Stop: 10/11/17 10:01 Last Admin: 10/04/17 18:37 Dose: 167 mls/hr Sodium Chloride (Sodium Chloride 0.45%) 1,000 mls @ 80 mls/hr IV .[id number] [facility] Stop: 10/04/17 22:00 Losartan Potassium (Cozaar) 50 mg PO DAILY [facility] Last Admin: 10/04/17 10:03 Dose: 50 mg Ondansetron HCl (Zofran Inj) 4 mg IVP Q6H PRN PRN Reason: Nausea/Vomiting Oxycodone HCl (Oxycodone Immediate Release Tab) 10 mg PO Q6H PRN PRN Reason: Pain, moderate (4-7) Last Admin: 10/04/17 17:46 Dose: 10 mg Zolpidem Tartrate (Ambien) 5 mg PO HS PRN; Protocol PRN Reason: Insomnia - Labs Labs: 10/04/17 10:45 10/04/17 10:45 PT 14.6 SECONDS (9.4-12.5) H 10/04/17 10:45 INR 1.26 (0.93-1.08) H 10/04/17 10:45 APTT 27.8 Seconds (25.1-36.5) 10/04/17 10:45 Assessment and Plan - Assessment and Plan (Free Text) Plan: Pt seen and examined. I have reviewed the note of the medical laboratory scientist and agree with it. I have discussed the assessment and plan with the resident. I have reviewed the patient's labs and medications. Pt for liver bx. Spoke to daughter at bedside to update. She was able to sleep yesterday. Eating well. On Lipitor for dyslipidemia. Cozaar for HTN.
[2017-10-04] MEDS: Albuterol-Ipratrop 3 mg / 0.5 (3 ml) UD IH SCH ×3 (07:27→19:32)
[2017-10-04] MEDS: cefTRIAXone 1 gm 1 GM/100 ML BAG IVPB SCH (10:03)
[2017-10-04 10:53] LABS: BASO # 0.03 K/mm3 (0.0-2.0); BASO % 0.3 % (0.0-3.0); EOS # 0.1 (0.0-0.7); EOS % 0.6 % (1.5-5.0); GRAN # 7.93 (1.4-6.5); GRAN % 73.6 % (50.0-68.0); HEMOGLOBIN 9.9 g/dL (12.0-16.0); LYMPH # 1.5 (1.2-3.4); LYMPH % 13.8 % (22.0-35.0); MEAN CELL VOLUME 91.6 fl (80.0-105.0); MEAN CORPUSCULAR HEMOGLOBIN 30.7 pg (25.0-35.0); MEAN CORPUSCULAR HGB CONC 33.4 g/dl (31.0-37.0); MEAN PLATELET VOLUME 9.3 fl (7.0-11.0); MONO # 1.3 (0.1-0.6); MONO % 11.7 % (1.0-6.0); RBC 3.23 10^6/uL (3.5-6.1); RED CELL DISTRIBUTION WIDTH 13.1 % (11.5-14.5); WHITE BLOOD COUNT 10.8 10^3/ul (4.5-11.0)
[2017-10-04 11:07] LABS: BLOOD UREA NITROGEN 11 mg/dL (7-21); CALCIUM 9.2 mg/dL (8.4-10.5); GFR AFRICAN-AMERICAN > 60; GFR NON-AFRICAN AMERICAN > 60
[2017-10-04 11:39] LABS: INR 1.26 (0.93-1.08); PARTIAL THROMBOPLASTIN TIME 27.8 Seconds (25.1-36.5); PROTHROMBIN TIME 14.6 SECONDS (9.4-12.5)
[2017-10-04] MEDS ORDERED: Lidocaine 1% Inj (20ml) ONE (12:57)
[2017-10-04] MEDS ORDERED: Midazolam 2 MG/2 ML VIAL ONE (12:58)
[2017-10-04] MEDS ORDERED: Sodium Chloride 0.45% 1,000 ML IV SCH (14:15)
[2017-10-04] MEDS ORDERED: Morphine 4 mg/ml ISec IVP STA (14:49)
[2017-10-04] MEDS ORDERED: Morphine 4 mg/ml ISec IVP ONE (14:52)
[2017-10-04] MEDS ORDERED: Morphine 4 mg/ml ISec ONE (14:52)
--- NOTE | 2017-10-04 16:42 | RAD ---
Date of service: 10/04/2017 HISTORY: rt liver bx r/o PTX COMPARISON: 10/01/2017 FINDINGS: LUNGS: No active pulmonary disease. PLEURA: There is a small pleural effusion along the minor fissure. There is no pneumothorax CARDIOVASCULAR: Mild cardiomegaly OSSEOUS STRUCTURES: No significant abnormalities. VISUALIZED UPPER ABDOMEN: Normal. OTHER FINDINGS: None. IMPRESSION: There is a small pleural effusion along the minor fissure. There is no pneumothorax
--- NOTE | 2017-10-04 17:30 | CT ---
PROCEDURE: CT guided liver biopsy. HISTORY: Large right hilar lung mass. Multiple liver lesions. Evaluate for metastatic disease. PHYSICIAN(S): Tejas Mosher MD. TECHNIQUE: The relative risks and indications of the procedure were explained to the patient and consent obtained. The patient was placed supine on the CT scanner and preliminary images through the liver obtained. Conscious sedation and monitoring were provided throughout the procedure by a nurse. Is a 10 cm mass in the superior aspect of the right lobe of the liver with some high attenuation.. A right lateral approach was selected and the area prepped and draped in the usual sterile fashion. 1% Xylocaine was used to anesthetize the skin and soft tissues. A 17-gauge guiding needle was advanced into the 10 cm right liver mass. Its position was confirmed with CT. Using coaxial technique, multiple core biopsies were obtained. The postprocedure images show no evidence of significant hemorrhage. IMPRESSION: 1. CT-guided liver biopsy as described above.
[2017-10-04] MEDS: Azithromycin 500MG/NS 250ml 500 MG/250 ML BAG IVPB SCH (18:37)
[2017-10-04 22:33] VITALS: RESP 20
[2017-10-05 02:55] VITALS: PULSE 90; O2SAT 97
[2017-10-05 06:57] LABS: BASO # 0.03 K/mm3 (0.0-2.0); BASO % 0.2 % (0.0-3.0); EOS # 0.2 (0.0-0.7); EOS % 1.2 % (1.5-5.0); GRAN # 9.97 (1.4-6.5); GRAN % 76.9 % (50.0-68.0); HEMOGLOBIN 9.6 g/dL (12.0-16.0); LYMPH # 1.6 (1.2-3.4); LYMPH % 12.6 % (22.0-35.0); MEAN CELL VOLUME 92.7 fl (80.0-105.0); MEAN CORPUSCULAR HEMOGLOBIN 30.5 pg (25.0-35.0); MEAN CORPUSCULAR HGB CONC 32.9 g/dl (31.0-37.0); MEAN PLATELET VOLUME 9.2 fl (7.0-11.0); MONO # 1.2 (0.1-0.6); MONO % 9.1 % (1.0-6.0); RBC 3.15 10^6/uL (3.5-6.1); RED CELL DISTRIBUTION WIDTH 13.3 % (11.5-14.5)
[2017-10-05] MEDS: Albuterol-Ipratrop 3 mg / 0.5 (3 ml) UD IH SCH ×2 (07:15→13:12)
[2017-10-05 08:59] VITALS: BP 131/74; TEMP 99
[2017-10-05] MEDS: Azithromycin 500MG/NS 250ml 500 MG/250 ML BAG IVPB SCH (10:20)
[2017-10-05] MEDS: cefTRIAXone 1 gm 1 GM/100 ML BAG IVPB SCH (10:20)
--- NOTE | 2017-10-05 10:31 | CP.PCM.DIS ---
<Pepper Gordillo - Last Filed: 10/05/17 10:27> Provider - Provider Date of Admission: 10/01/17 14:46 Attending physician: Dion Zaragoza MD Consults: IR: Dr. Mosher Oncology: Dr. Moeller Time Spent in preparation of Discharge (in minutes): 35 Hospital Course - Lab Results Lab Results: Micro Results 10/03/17 10:15 Urine Urine Culture - Final No Growth (<1,000 CFU/ML) 10/01/17 18:00 Other: Please Indicate Mycobacterial Culture - Preliminary Most Recent Lab Values WBC 13.0 10^3/ul (4.5-11.0) H D 10/05/17 06:40 RBC 3.15 10^6/uL (3.5-6.1) L 10/05/17 06:40 Hgb 9.6 g/dL (12.0-16.0) L 10/05/17 06:40 Hct 29.2 % (36.0-48.0) L 10/05/17 06:40 MCV 92.7 fl (80.0-105.0) 10/05/17 06:40 MCH 30.5 pg (25.0-35.0) 10/05/17 06:40 MCHC 32.9 g/dl (31.0-37.0) 10/05/17 06:40 RDW 13.3 % (11.5-14.5) 10/05/17 06:40 Plt Count 345 10^3/uL (120.0-450.0) 10/05/17 06:40 MPV 9.2 fl (7.0-11.0) 10/05/17 06:40 Gran % 76.9 % (50.0-68.0) H 10/05/17 06:40 Lymph % (Auto) 12.6 % (22.0-35.0) L 10/05/17 06:40 [place] % (Auto) 9.1 % (1.0-6.0) H 10/05/17 06:40 Eos % (Auto) 1.2 % (1.5-5.0) L 10/05/17 06:40 Baso % (Auto) 0.2 % (0.0-3.0) 10/05/17 06:40 Gran # 9.97 (1.4-6.5) H 10/05/17 06:40 Lymph # (Auto) 1.6 (1.2-3.4) 10/05/17 06:40 [place] # (Auto) 1.2 (0.1-0.6) H 10/05/17 06:40 Eos # (Auto) 0.2 (0.0-0.7) 10/05/17 06:40 Baso # (Auto) 0.03 K/mm3 (0.0-2.0) 10/05/17 06:40 Retic Count 0.80 % (0.5-1.5) 10/02/17 09:30 PT 14.6 SECONDS (9.4-12.5) H 10/04/17 10:45 INR 1.26 (0.93-1.08) H 10/04/17 10:45 APTT 27.8 Seconds (25.1-36.5) 10/04/17 10:45 Sodium 139 mmol/L (132-148) 10/04/17 10:45 Potassium 5.0 mmol/L (3.6-5.0) 10/04/17 10:45 Chloride 102 mmol/L (98-107) 10/04/17 10:45 Carbon Dioxide 27 mmol/L (21-33) 10/04/17 10:45 Anion Gap 15 (10-20) 10/04/17 10:45 BUN 11 mg/dL (7-21) 10/04/17 10:45 Creatinine 0.8 mg/dl (0.7-1.2) 10/04/17 10:45 Est GFR ( Amer) > 60 10/04/17 10:45 Est GFR (Non-Af Amer) > 60 10/04/17 10:45 Random Glucose 110 mg/dL (70-110) 10/04/17 10:45 Hemoglobin A1c 6.1 % (4.2-6.5) 10/02/17 09:30 Calcium 9.2 mg/dL (8.4-10.5) 10/04/17 10:45 Total Bilirubin 0.7 mg/dL (0.2-1.3) 10/03/17 07:20 AST 86 U/L (14-36) H 10/03/17 07:20 ALT 56 U/L (7-56) 10/03/17 07:20 Alkaline Phosphatase 154 U/L (38-126) H 10/03/17 07:20 Lactate Dehydrogenase 4758 U/L (333-699) H 10/01/17 12:00 Total Creatine Kinase 170 U/L (35-230) 10/01/17 12:00 Troponin I < 0.01 ng/mL 10/01/17 12:00 Total Protein 6.4 g/dL (5.8-8.3) 10/03/17 07:20 Albumin 3.4 g/dL (3.0-4.8) 10/03/17 07:20 Globulin 3.0 gm/dL 10/03/17 07:20 Albumin/Globulin Ratio 1.1 (1.1-1.8) 10/03/17 07:20 Amylase 38 U/L (35-125) 10/01/17 12:00 Lipase 19 U/L (23-300) L 10/01/17 12:00 Procalcitonin 0.34 NG/ML (0.19-0.49) 10/02/17 09:30 Urine Color Light yellow (YELLOW) 10/03/17 10:30 Urine Appearance Clear (CLEAR) 10/03/17 10:30 Urine pH 6.0 (4.7-8.0) 10/03/17 10:30 Ur Specific [place] <= 1.005 (1.005-1.035) 10/03/17 10:30 Urine Protein Negative mg/dL (<30 mg/dL) 10/03/17 10:30 Urine Glucose (UA) Negative mg/dL (NEGATIVE) 10/03/17 10:30 Urine Ketones Negative mg/dL (NEGATIVE) 10/03/17 10:30 Urine Blood Negative (NEGATIVE) 10/03/17 10:30 Urine Nitrate Negative (NEGATIVE) 10/03/17 10:30 Urine Bilirubin Negative (NEGATIVE) 10/03/17 10:30 Urine Urobilinogen 0.2 E.U./dL (<1 E.U./dL) 10/03/17 10:30 Ur Leukocyte Esterase Negative Adriana/uL (NEGATIVE) 10/03/17 10:30 Stool Occult Blood Negative (NEGATIVE) 10/03/17 09:45 ENID Screen Negative (Negative) 10/02/17 09:30 Hepatitis A IgM Ab Negative (NEGATIVE) 10/02/17 09:30 Hep Bs Antigen Negative (NEGATIVE) 10/02/17 09:30 Hep B Core IgM Ab Negative (NEGATIVE) 10/02/17 09:30 Hepatitis C Antibody Negative (NEGATIVE) 10/02/17 09:30 HIV 1&2 Ag/Ab, 4th Gen Nonreactive (Nonreactive) 10/02/17 09:30 Ur L.pneumophila Ag Negative (NEGATIVE) 10/03/17 10:15 TB Test (QFT) Nil 0.02 IU/mL 10/02/17 09:15 TB Test Mitogen - Nil 0.12 IU/mL 10/02/17 09:15 TB Test TB - Nil 0.00 IU/mL 10/02/17 09:15 TB Test (QFT) Indeterminate (Negative) H 10/02/17 09:15 - Hospital Course Hospital Course: This is an 82yo female with past medical history of HTN, dyslipidemia, former heavy smoker who was admitted for shortness of breath. Labs and imaging were reviewed. Patient was found to have R lung mass that is partially obstructing the R bronchus. CT A/P and abdominal US also showed liver mass as well. MRI brain did not show evidence of mets. Patient was placed on empiric antibiotics. Septic work up was negative. Patient had liver biopsy and pathology is still pending. Patient was evaluated by respiratory therapy and oxygen saturation was at 97% with ambulation. Patient is independent in all ADLs and will be discharged home. She will follow up with PMD and Dr. Moeller next week. She will continue her home medications and is given a prescription for nebulizer kit and Duoneb as needed for shortness of breath. - Date & Time of H&P Date of H&P: 10/02/17 Time of H&P: 07:00 Discharge Exam - Head Exam Head Exam: ATRAUMATIC, NORMAL INSPECTION, NORMOCEPHALIC Discharge Plan - Discharge Medications Prescriptions: Albuterol/Ipratropium [Duoneb 3 MG/3 Ml-0.5 MG/3 Ml 3 Ml] 3 ml IH Q6H PRN #100 neb PRN Reason: Shortness Of Breath oxyCODONE [oxyCODONE Immediate Release Tab] 10 mg PO Q12 PRN #30 tab PRN Reason: Pain, Severe (8-10) Nebulizer Accessories [Reusable Nebulizer Kit] 1 each MC Q6H PRN #1 kit PRN Reason: Shortness Of Breath - Follow Up Plan Condition: GOOD Disposition: HOME/ ROUTINE Instructions: Heart Healthy Diet, Lung Cancer (DC), Liver Cancer (DC) Referrals: Annia Moeller MD [Staff Provider] - <Dion Zaragoza - Last Filed: 10/06/17 19:33> Provider - Provider Date of Admission: 10/01/17 14:46 Attending physician: Dion Zaragoza MD Hospital Course - Lab Results Lab Results: Micro Results 10/03/17 10:15 Urine Urine Culture - Final No Growth (<1,000 CFU/ML) 10/01/17 18:00 Other: Please Indicate Mycobacterial Culture - Preliminary Most Recent Lab Values WBC 13.0 10^3/ul (4.5-11.0) H D 10/05/17 06:40 RBC 3.15 10^6/uL (3.5-6.1) L 10/05/17 06:40 Hgb 9.6 g/dL (12.0-16.0) L 10/05/17 06:40 Hct 29.2 % (36.0-48.0) L 10/05/17 06:40 MCV 92.7 fl (80.0-105.0) 10/05/17 06:40 MCH 30.5 pg (25.0-35.0) 10/05/17 06:40 MCHC 32.9 g/dl (31.0-37.0) 10/05/17 06:40 RDW 13.3 % (11.5-14.5) 10/05/17 06:40 Plt Count 345 10^3/uL (120.0-450.0) 10/05/17 06:40 MPV 9.2 fl (7.0-11.0) 10/05/17 06:40 Gran % 76.9 % (50.0-68.0) H 10/05/17 06:40 Lymph % (Auto) 12.6 % (22.0-35.0) L 10/05/17 06:40 [place] % (Auto) 9.1 % (1.0-6.0) H 10/05/17 06:40 Eos % (Auto) 1.2 % (1.5-5.0) L 10/05/17 06:40 Baso % (Auto) 0.2 % (0.0-3.0) 10/05/17 06:40 Gran # 9.97 (1.4-6.5) H 10/05/17 06:40 Lymph # (Auto) 1.6 (1.2-3.4) 10/05/17 06:40 [place] # (Auto) 1.2 (0.1-0.6) H 10/05/17 06:40 Eos # (Auto) 0.2 (0.0-0.7) 10/05/17 06:40 Baso # (Auto) 0.03 K/mm3 (0.0-2.0) 10/05/17 06:40 Retic Count 0.80 % (0.5-1.5) 10/02/17 09:30 PT 14.6 SECONDS (9.4-12.5) H 10/04/17 10:45 INR 1.26 (0.93-1.08) H 10/04/17 10:45 APTT 27.8 Seconds (25.1-36.5) 10/04/17 10:45 Sodium 139 mmol/L (132-148) 10/04/17 10:45 Potassium 5.0 mmol/L (3.6-5.0) 10/04/17 10:45 Chloride 102 mmol/L (98-107) 10/04/17 10:45 Carbon Dioxide 27 mmol/L (21-33) 10/04/17 10:45 Anion Gap 15 (10-20) 10/04/17 10:45 BUN 11 mg/dL (7-21) 10/04/17 10:45 Creatinine 0.8 mg/dl (0.7-1.2) 10/04/17 10:45 Est GFR ( Amer) > 60 10/04/17 10:45 Est GFR (Non-Af Amer) > 60 10/04/17 10:45 Random Glucose 110 mg/dL (70-110) 10/04/17 10:45 Hemoglobin A1c 6.1 % (4.2-6.5) 10/02/17 09:30 Calcium 9.2 mg/dL (8.4-10.5) 10/04/17 10:45 Total Bilirubin 0.7 mg/dL (0.2-1.3) 10/03/17 07:20 AST 86 U/L (14-36) H 10/03/17 07:20 ALT 56 U/L (7-56) 10/03/17 07:20 Alkaline Phosphatase 154 U/L (38-126) H 10/03/17 07:20 Lactate Dehydrogenase 4758 U/L (333-699) H 10/01/17 12:00 Total Creatine Kinase 170 U/L (35-230) 10/01/17 12:00 Troponin I < 0.01 ng/mL 10/01/17 12:00 Total Protein 6.4 g/dL (5.8-8.3) 10/03/17 07:20 Albumin 3.4 g/dL (3.0-4.8) 10/03/17 07:20 Globulin 3.0 gm/dL 10/03/17 07:20 Albumin/Globulin Ratio 1.1 (1.1-1.8) 10/03/17 07:20 Amylase 38 U/L (35-125) 10/01/17 12:00 Lipase 19 U/L (23-300) L 10/01/17 12:00 Procalcitonin 0.57 NG/ML (0.19-0.49) H 10/05/17 07:30 Urine Color Light yellow (YELLOW) 10/03/17 10:30 Urine Appearance Clear (CLEAR) 10/03/17 10:30 Urine pH 6.0 (4.7-8.0) 10/03/17 10:30 Ur Specific [place] <= 1.005 (1.005-1.035) 10/03/17 10:30 Urine Protein Negative mg/dL (<30 mg/dL) 10/03/17 10:30 Urine Glucose (UA) Negative mg/dL (NEGATIVE) 10/03/17 10:30 Urine Ketones Negative mg/dL (NEGATIVE) 10/03/17 10:30 Urine Blood Negative (NEGATIVE) 10/03/17 10:30 Urine Nitrate Negative (NEGATIVE) 10/03/17 10:30 Urine Bilirubin Negative (NEGATIVE) 10/03/17 10:30 Urine Urobilinogen 0.2 E.U./dL (<1 E.U./dL) 10/03/17 10:30 Ur Leukocyte Esterase Negative Adriana/uL (NEGATIVE) 10/03/17 10:30 Stool Occult Blood Negative (NEGATIVE) 10/03/17 09:45 ENID Screen Negative (Negative) 10/02/17 09:30 Hepatitis A IgM Ab Negative (NEGATIVE) 10/02/17 09:30 Hep Bs Antigen Negative (NEGATIVE) 10/02/17 09:30 Hep B Core IgM Ab Negative (NEGATIVE) 10/02/17 09:30 Hepatitis C Antibody Negative (NEGATIVE) 10/02/17 09:30 HIV 1&2 Ag/Ab, 4th Gen Nonreactive (Nonreactive) 10/02/17 09:30 Ur L.pneumophila Ag Negative (NEGATIVE) 10/03/17 10:15 TB Test (QFT) Nil 0.02 IU/mL 10/02/17 09:15 TB Test Mitogen - Nil 0.12 IU/mL 10/02/17 09:15 TB Test TB - Nil 0.00 IU/mL 10/02/17 09:15 TB Test (QFT) Indeterminate (Negative) H 10/02/17 09:15 - Hospital Course Hospital Course: Pt seen and examined yesterday. This is a late entry. I have reviewed the note of the medical services manager and agree with it. I have discussed the assessment and plan with the resident. I have reviewed the patient's labs and medications. Pt for D/C home today. Liver bx pending. She does not wish to go to TCU as she is able to ambulate. O2 sat is acceptable. She will follow up with Dr Moeller.
--- NOTE | 2017-10-05 17:18 | CP.PCM.PN ---
Subjective - Date & Time of Evaluation Date of Evaluation: 10/04/17 Time of Evaluation: 11:05 - Subjective Subjective: Patient had fever post-liver biopsy but quickly defervesced, feeling much better this morning, no cough currently, no SOB at rest. Objective - Vital Signs/Intake and Output Vital Signs (last 24 hours): Temp Pulse Resp BP Pulse Ox 97.9 F 99 H 20 128/71 96 10/04/17 06:00 10/04/17 06:00 10/04/17 06:00 10/04/17 06:00 10/04/17 06:00 - Medications Medications: Current Medications Acetaminophen (Tylenol 325mg Tab) 650 mg PO Q6H PRN PRN Reason: Fever >100.4 F Last Admin: 10/02/17 17:42 Dose: 650 mg Albuterol/Ipratropium (Duoneb 3 Mg/0.5 Mg (3 Ml) Ud) 3 ml IH TIDRESP [facility] Last Admin: 10/04/17 07:27 Dose: 3 ml Atorvastatin Calcium (Lipitor) 10 mg PO DAILY [facility] Last Admin: 10/03/17 10:26 Dose: 10 mg Famotidine (Pepcid) 40 mg PO HS [facility] Last Admin: 10/03/17 21:44 Dose: 40 mg Heparin Sodium (Porcine) (Heparin) 5,000 units SC Q12 LETA PRN Reason: Protocol Ceftriaxone Sodium (Rocephin 1 Gram Ivpb) 1 gm in 100 mls @ 100 mls/hr IVPB DAILY [facility] PRN Reason: Protocol Stop: 10/10/17 10:01 Last Admin: 10/03/17 10:24 Dose: 100 mls/hr Azithromycin (Zithromax 500mg In Ns) 500 mg in 250 mls @ 167 mls/hr IVPB DAILY [facility] PRN Reason: Protocol Stop: 10/11/17 10:01 Last Admin: 10/03/17 14:51 Dose: 167 mls/hr Losartan Potassium (Cozaar) 50 mg PO DAILY [facility] Last Admin: 10/03/17 10:25 Dose: 50 mg Oxycodone HCl (Oxycodone Immediate Release Tab) 10 mg PO Q6H PRN PRN Reason: Pain, moderate (4-7) Zolpidem Tartrate (Ambien) 5 mg PO HS PRN; Protocol PRN Reason: Insomnia - Labs Labs: 10/03/17 07:20 10/03/17 07:20 PT 13.6 SECONDS (9.4-12.5) H 10/03/17 19:35 INR 1.19 (0.93-1.08) H 10/03/17 19:35 APTT 28.8 Seconds (25.1-36.5) 10/03/17 19:35 - Constitutional Appears: Chronically Ill - Head Exam Head Exam: NORMAL INSPECTION - Respiratory Exam Respiratory Exam: Decreased Breath Sounds - Cardiovascular Exam Cardiovascular Exam: +S1, +S2 - GI/Abdominal Exam GI & Abdominal Exam: Soft. absent: Tenderness Assessment and Plan - Assessment and Plan (Free Text) Plan: Assessment R/O community-acquired pneumonia, associated with post-obstructive pneumonitis with thoracic tumor post-procedure fever, resolved Plan on Rocephin and Zithromax day 3 to 4 - may be able to d/c antibiotics with outpatient follow up with PMD should follow up liver biopsy results with PMD and Oncologist overall prognosis is poor
--- NOTE | 2017-10-05 23:03 | CP.PCM.PN ---
Subjective - Date & Time of Evaluation Date of Evaluation: 10/03/17 Time of Evaluation: 09:00 - Subjective Subjective: Feels better today. No pain. Slight abdominal pain. No fever, cough. CT chest abdomen pelvis showed large right hilar mass, multiple liver lesions. retroperitoneal lymphadenopathy. Objective - Vital Signs/Intake and Output Vital Signs (last 24 hours): Temp Pulse Resp BP Pulse Ox 99.0 F 90 20 131/74 97 10/05/17 06:00 10/05/17 10:19 10/05/17 06:00 10/05/17 10:19 10/05/17 06:00 - Labs Labs: 10/05/17 06:40 10/04/17 10:45 PT 14.6 SECONDS (9.4-12.5) H 10/04/17 10:45 INR 1.26 (0.93-1.08) H 10/04/17 10:45 APTT 27.8 Seconds (25.1-36.5) 10/04/17 10:45 - Constitutional Appears: Non-toxic, Chronically Ill - Head Exam Head Exam: ATRAUMATIC, NORMAL INSPECTION, NORMOCEPHALIC - Eye Exam Eye Exam: Normal appearance Pupil Exam: NORMAL ACCOMODATION - ENT Exam ENT Exam: Mucous Membranes Moist - Neck Exam Neck Exam: Full ROM, Normal Inspection - Respiratory Exam Respiratory Exam: Rales, NORMAL BREATHING PATTERN - Cardiovascular Exam Cardiovascular Exam: REGULAR RHYTHM, +S1, +S2 - GI/Abdominal Exam GI & Abdominal Exam: Soft, Normal Bowel Sounds - Extremities Exam Extremities Exam: Normal Inspection - Back Exam Back Exam: NORMAL INSPECTION - Neurological Exam Neurological Exam: Alert, Awake, CN II-XII Intact, Normal Gait, Oriented x3 - Psychiatric Exam Psychiatric exam: Normal Affect - Skin Skin Exam: Normal Color, Warm Assessment and Plan - Assessment and Plan (Free Text) Assessment: 1. Large hilar mass, multiple lesions in liver , larger one might have bleed. CT scans reviewed. Discussed with DR. Mosher . Liver lesion are easily accessible. CT guided biopsy of liver scheduled for tomorrow. 2. Labs reviewed. CBC showed anemia. work up for anemia. iron, B12, folate, stool occult blood. 3. renal : normal renal functions. 4. Pain : none. 5. Post obstructive PNA right side. On IV antibiotics. Continue bronchodilators. Had a family meeting, Three daughters , son bedside. Discussed with them possibility of lung cancer with mets in liver, abdominal lymph nodes. I had a lengthy discussion with them regarding diagnosis, work up, biopsy, treatment options. PET scans will be scheduled upon discharge from hospital. Answered all their questions to their satisfaction. DC isolation . Discussed with Dr. Zaragoza, staff nurse.
--- NOTE | 2017-10-05 23:12 | CP.PCM.PN ---
Subjective - Date & Time of Evaluation Date of Evaluation: 10/04/17 Time of Evaluation: 09:00 - Subjective Subjective: Comfortable in bed. Breathing improved. No fever, cough. Apatite improved. Ambulating in room. No pain. Scheduled for liver biopsy today. Objective - Vital Signs/Intake and Output Vital Signs (last 24 hours): Temp Pulse Resp BP Pulse Ox 99.0 F 90 20 131/74 97 10/05/17 06:00 10/05/17 10:19 10/05/17 06:00 10/05/17 10:19 10/05/17 06:00 - Labs Labs: 10/05/17 06:40 10/04/17 10:45 PT 14.6 SECONDS (9.4-12.5) H 10/04/17 10:45 INR 1.26 (0.93-1.08) H 10/04/17 10:45 APTT 27.8 Seconds (25.1-36.5) 10/04/17 10:45 - Constitutional Appears: Non-toxic, Chronically Ill - Head Exam Head Exam: ATRAUMATIC, NORMAL INSPECTION, NORMOCEPHALIC - Eye Exam Eye Exam: Normal appearance Pupil Exam: NORMAL ACCOMODATION - ENT Exam ENT Exam: Mucous Membranes Moist, Normal Exam - Neck Exam Neck Exam: Normal Inspection - Respiratory Exam Respiratory Exam: Clear to Ausculation Bilateral - Cardiovascular Exam Cardiovascular Exam: REGULAR RHYTHM, +S1, +S2 - GI/Abdominal Exam GI & Abdominal Exam: Soft, Normal Bowel Sounds - Extremities Exam Extremities Exam: Normal Inspection - Back Exam Back Exam: NORMAL INSPECTION - Neurological Exam Neurological Exam: Alert, Awake, Normal Gait, Oriented x3 - Psychiatric Exam Psychiatric exam: Depressed - Skin Skin Exam: Pallor, Warm Assessment and Plan - Assessment and Plan (Free Text) Assessment: 1. Right hilar mass. Multiple liver lesions. CT guided biopsy scheduled today. Likely stage IV lung Cancer. 2. Vit K 10 mg SQ ordered, given last night. Coags are normal. repeat stat ordered. 3. anemia : likely multi factorial- chronic disease, iron deficiency. 4. Renal : stable renal functions. 5. CT PET scheduled for Tuesday this week. 6. Oxycodone 10 mg prn for pain. senna colace. 7. Continue IV antibiotics for PNA right lung. Continue bronchodilators. possible discharge for tomorrow.
--- NOTE | 2017-10-05 23:21 | CP.PCM.PN ---
Subjective - Date & Time of Evaluation Date of Evaluation: 10/05/17 Time of Evaluation: 10:00 - Subjective Subjective: She underwent CT guided biopsy of liver lesion yesterday. Complaining of slight abdominal pain, right upper quadrant. No nausea vomiting. Ambulating without any discomfort. No fever, cough. Breathing improved. Objective - Vital Signs/Intake and Output Vital Signs (last 24 hours): Temp Pulse Resp BP Pulse Ox 99.0 F 90 20 131/74 97 10/05/17 06:00 10/05/17 10:19 10/05/17 06:00 10/05/17 10:19 10/05/17 06:00 - Labs Labs: 10/05/17 06:40 10/04/17 10:45 PT 14.6 SECONDS (9.4-12.5) H 10/04/17 10:45 INR 1.26 (0.93-1.08) H 10/04/17 10:45 APTT 27.8 Seconds (25.1-36.5) 10/04/17 10:45 - Constitutional Appears: Well, Non-toxic - Head Exam Head Exam: ATRAUMATIC, NORMAL INSPECTION, NORMOCEPHALIC - Eye Exam Eye Exam: Normal appearance Pupil Exam: NORMAL ACCOMODATION - ENT Exam ENT Exam: Mucous Membranes Moist, Normal Exam - Neck Exam Neck Exam: Normal Inspection - Respiratory Exam Respiratory Exam: Clear to Ausculation Bilateral, NORMAL BREATHING PATTERN - Cardiovascular Exam Cardiovascular Exam: REGULAR RHYTHM, +S1, +S2 - GI/Abdominal Exam GI & Abdominal Exam: Soft, Normal Bowel Sounds - Extremities Exam Extremities Exam: Normal Capillary Refill, Normal Inspection - Back Exam Back Exam: NORMAL INSPECTION - Neurological Exam Neurological Exam: Alert, Awake, Normal Gait, Oriented x3 - Skin Skin Exam: Normal Color, Warm Assessment and Plan - Assessment and Plan (Free Text) Assessment: 1. Likely stage IV lung cancer. right hilar mass, liver mets. CT guided biopsy done yesterday. No complications. 10 mg prn for Slight discomfort right upper abdomen. Oxycodone 10 mg tid prn. prescription given as she is being discharged home today. Biopsy results awaited. 2. Anemia . work up in progress. 3. Renal stable. 4. CT-PET scan scheduled for Tuesday. 5. Pain. oxycodone 10 mg prn. advised to call office if abdominal pain worsens. FU appointment given for office for 10/10/2017. Discussed with Staff nurse, House Staff.
== END 2017-10-05 14:21 | disposition home or self-care (01) | DRG 180 ==
LOC: ED 11:43 → ERH 14:46 → 5RSO 18:43
PROVIDERS: ADMIT Internal Medicine Medical Oncology; ATTEND Internal Medicine Nephrology
PROC: 0FB13ZX Excision of Right Lobe Liver, Percutaneous Approach, Diagnostic (ICD-10-PCS; principal; 2017-10-04 16:00)
DX: C34.91 Malignant neoplasm of unspecified part of right bronchus or lung (principal); J18.9 Pneumonia, unspecified organism; C78.7 Secondary malignant neoplasm of liver and intrahepatic bile duct; R16.0 Hepatomegaly, not elsewhere classified; R50.82 Postprocedural fever; D50.9 Iron deficiency anemia, unspecified; I10 Essential (primary) hypertension; D63.8 Anemia in other chronic diseases classified elsewhere; E78.5 Hyperlipidemia, unspecified; H26.9 Unspecified cataract; Z96.642 Presence of left artificial hip joint; Z87.891 Personal history of nicotine dependence; Z88.2 Allergy status to sulfonamides

== ENCOUNTER 2017-10-14 13:19 | Day surgery (SDC) | payer MEDICARE ==
[2017-10-13 06:57] VITALS: BMI 26.2
[2017-10-14 13:49] LABS: BASO # 0.03 K/mm3 (0.0-2.0); BASO % 0.2 % (0.0-3.0); EOS # 0.1 (0.0-0.7); EOS % 0.6 % (1.5-5.0); GRAN # 13.59 (1.4-6.5); GRAN % 79.9 % (50.0-68.0); HEMOGLOBIN 11.1 g/dL (12.0-16.0); LYMPH % 11.5 % (22.0-35.0); MEAN CELL VOLUME 92.3 fl (80.0-105.0); MEAN CORPUSCULAR HEMOGLOBIN 30.4 pg (25.0-35.0); MEAN CORPUSCULAR HGB CONC 32.9 g/dl (31.0-37.0); MONO # 1.3 (0.1-0.6); MONO % 7.8 % (1.0-6.0); RBC 3.65 10^6/uL (3.5-6.1); RED CELL DISTRIBUTION WIDTH 13.8 % (11.5-14.5)
[2017-10-14 13:57] LABS: INR 1.18 (0.93-1.08); PARTIAL THROMBOPLASTIN TIME 30.1 Seconds (25.1-36.5); PROTHROMBIN TIME 13.6 SECONDS (9.4-12.5)
[2017-10-14 13:59] LABS: BLOOD UREA NITROGEN 20 mg/dL (7-21); CALCIUM 10.3 mg/dL (8.4-10.5); GFR AFRICAN-AMERICAN > 60; GFR NON-AFRICAN AMERICAN > 60
[2017-10-14] MEDS ORDERED: Lidocaine PF 2% (5 ml) Inj (For Cardiac Arrhy) IV ONE (17:16)
[2017-10-14] MEDS ORDERED: Midazolam 2 MG/2 ML VIAL ONE ×2 (17:38→17:50)
[2017-10-14] MEDS ORDERED: Oxycodone/Acetaminophen 5/325 mg Tab PO PRN (18:49)
[2017-10-14] MEDS ORDERED: Sodium Chloride 0.45% 1,000 ML IV SCH (19:00)
[2017-10-14 19:08] VITALS: BP 144/73; PULSE 59; RESP 16; TEMP 99; O2SAT 100
--- NOTE | 2017-10-14 19:12 | VASCULAR ---
PROCEDURE: Ultrasound and fluoroscopic right internal jugular venous access port. CLINICAL HISTORY: Lung CA with liver metastasis.Venous port for chemotherapy. PHYSICIAN(S): Tejas Mosher M.D. TECHNIQUE: The relative risks and indications of the procedure were explained to the patient and consent obtained. The patient was placed supine on the arteriogram table and the right neck and chest prepped and draped in the usual sterile fashion. Conscious sedation monitoring was provided throughout the procedure by a nurse. Antibiotics were given prior to the procedure. Under direct ultrasound guidance, the right internal jugular vein was punctured with a micro-puncture set. A 0.035 angled Glidewire was advanced into the IVC. A 4 cm incision was made the right clavicle and the pocket blunted dissected. A 8 [place] single-lumen catheter, 24 cm long, was advanced to the SVC/RA junction. The catheter was trimmed and attached to the port. The port aspirates and injects easily. The port was placed in the pocket and closed in 2 layers. . The patient tolerated the procedure well. IMPRESSION: Ultrasound and fluoroscopically placed right internal jugular venous access port.
== END 2017-10-14 19:30 | disposition home or self-care (01) ==
LOC: SDS 13:19
PROVIDERS: ATTEND Radiology Vascular & Interventional Radiology
DX: C34.90 Malignant neoplasm of unspecified part of unspecified bronchus or lung (principal); C78.7 Secondary malignant neoplasm of liver and intrahepatic bile duct; I10 Essential (primary) hypertension; J43.9 Emphysema, unspecified
CPT/HCPCS: 36415; 36561; 76937; 77001; 80048; 85025; 85610; 85730; 99152; C1769; C1788; J0690; J1644; J2001; J2250; J2405; J3010; J7030

== ENCOUNTER 2018-01-01 16:32 | Emergency (ER) | payer MEDICARE ==
[2018-01-01 16:32] VITALS: BMI 26.2
[2018-01-01 16:56] VITALS: RESP 16
[2018-01-01] MEDS ORDERED: Sodium Chloride 0.9% 1,000 ML IV STA (17:30)
--- NOTE | 2018-01-01 17:54 | ED PDOC ---
Arrival/HPI - General Chief Complaint: Dizziness/Lightheaded Time Seen by Provider: 01/01/18 17:05 Historian: Patient - History of Present Illness Narrative History of Present Illness (Text): 01/01/18 17:51 82 year old female, who presents to the emergency department complaining to the emergency department complaining of lightheadedness. Patient's PMD Dr. Moeller sent patient to Emergency Department . Patient notes associated vomiting and diarrhea, however, she thinks this is due to Flagyl. Patient denies any fever, chills, chest pain, shortness of breath, nausea, vomiting, diarrhea, back pain, neck pain, headache, dizziness, or any other complaints. PMD: Dr. Moeller Symptom Onset: Gradual Symptom Course: Unchanged Activities at Onset: Light Context: Home Past Medical History - Provider Review Nursing Documentation Reviewed: Yes - Cardiac Hx Cardiac Disorders: Yes Hx Hypertension: Yes - Pulmonary Hx Respiratory Disorders: Yes (USED TO SMOKE CIGARETTES.QUIT 10 YRS AGO.< PPD.) - Neurological Hx Neurological Disorder: No - HEENT Hx HEENT Disorder: No - Renal Hx Renal Disorder: No - Endocrine/Metabolic Hx Endocrine Disorders: Yes (THYROID SX) - Hematological/Oncological Hx Blood Disorders: Yes Hx Anemia: Yes Hx Cancer: Yes Hx Chemotherapy: Yes Hx Shingles: Yes - Integumentary Hx Dermatological Disorder: Yes (HAD HUNTER SURGERY TO LEFT TEMPORAL AND LEFT NECK .) - Musculoskeletal/Rheumatological Hx Musculoskeletal Disorders: Yes (KNEES) Hx Arthritis: Yes - Gastrointestinal Hx Gastrointestinal Disorders: Yes - Genitourinary/Gynecological Hx Genitourinary Disorders: No - Psychiatric Hx Psychophysiologic Disorder: Yes Hx Anxiety: Yes Hx Substance Use: No - Surgical History Hx Orthopedic Surgery: Yes (HIP L) Hx Vascular Access Device: Yes Other/Comment: BX LIVER, SKI CANCER - Anesthesia Hx Anesthesia Reactions: No Hx Malignant Hyperthermia: No - Suicidal Assessment Feels Threatened In Home Enviroment: No Family/Social History - Physician Review Nursing Documentation Reviewed: Yes Family/Social History: Unknown Family HX Smoking Status: Former Smoker Hx Alcohol Use: No Hx Substance Use: No Allergies/Home Meds Allergies/Adverse Reactions: Allergies Sulfa (Sulfonamide Antibiotics) Allergy (Verified 01/01/18 16:43) ANAPHYLAXIS Home Medications: Home Meds Medication Instructions Recorded Confirmed Atorvastatin [Lipitor] 10 mg PO DAILY 10/01/17 01/01/18 Losartan [Cozaar] 25 mg PO DAILY 10/01/17 01/01/18 ALPRAZolam [Xanax] 1 tab PO HS PRN 01/01/18 01/01/18 Calcium Carbonate/Vitamin D3 1 tab PO BID 01/01/18 01/01/18 [Calcium 500+D Tablet Chew] Dexamethasone [Decadron] 2 mg PO PRN PRN 01/01/18 01/01/18 Loperamide [Imodium] 1 cap PO PRN PRN 01/01/18 01/01/18 Magnesium Oxide [Magnesium] 400 mg PO BID 01/01/18 01/01/18 Nystatin [Nystatin Oral Susp] 5 ml PO QID 01/01/18 01/01/18 Ondansetron [Zofran Tab] 8 mg PO PRN PRN 01/01/18 01/01/18 Ranitidine HCl [Zantac] 150 mg PO BID 01/01/18 01/01/18 metroNIDAZOLE [Flagyl] 500 mg PO BID 01/01/18 01/01/18 valACYclovir [Valtrex] 500 mg PO DAILY 01/01/18 01/01/18 Review of Systems - Physician Review All systems were reviewed & negative as marked: Yes - Review of Systems Constitutional: Normal Eyes: Normal ENT: Normal Respiratory: Normal. absent: SOB, Cough Cardiovascular: Normal. absent: Chest Pain Gastrointestinal: Diarrhea, Vomiting. absent: Abdominal Pain Genitourinary Female: Normal. absent: Dysuria, Frequency, Hematuria Musculoskeletal: Normal. absent: Back Pain, Neck Pain Skin: Normal. absent: Rash Neurological: absent: Headache, Dizziness, Other (lightheaded) Endocrine: Normal Hemo/Lymphatic: Normal Psychiatric: Normal Physical Exam Vital Signs Reviewed: Yes Vital Signs Temp Pulse Resp BP Pulse Ox 01/01/18 16:49 98.8 F 92 H 16 116/71 95 Temperature: Afebrile Blood Pressure: Normal Pulse: Regular Respiratory Rate: Normal Appearance: Positive for: Well-Appearing, Non-Toxic, Comfortable Pain Distress: None Mental Status: Positive for: Alert and Oriented X 3 - Systems Exam Head: Present: Atraumatic, Normocephalic Pupils: Present: PERRL Extroacular Muscles: Present: EOMI Conjunctiva: Present: Normal Mouth: Present: Moist Mucous Membranes Neck: Present: Normal Range of Motion Respiratory/Chest: Present: Clear to Auscultation, Good Air Exchange. No: Respiratory Distress, Accessory Muscle Use Cardiovascular: Present: Regular Rate and Rhythm, Normal S1, S2. No: Murmurs Abdomen: No: Tenderness, Distention, Peritoneal Signs Back: Present: Normal Inspection Upper Extremity: Present: Normal Inspection. No: Cyanosis, Edema Lower Extremity: Present: Normal Inspection. No: Edema Neurological: Present: GCS=15, CN II-XII Intact, Speech Normal Skin: Present: Warm, Dry, Normal Color. No: Rashes Psychiatric: Present: Alert, Oriented x 3, Normal Insight, Normal Concentration Medical Decision Making ED Course and Treatment: 01/01/18 17:58 Impression: 82 year old female presents to the Emergency Department complaining of lightheadedness. Differential Diagnosis included but are not limited to: Near Syncope vs Dehydration Plan: --CT head -- EKG -- Caridac ISO -- Labs -- Chest X-ray -- Sodium Chloride -- UA -- Reassess and disposition Progress Notes: 01/01/18 18:00 EKG reviewed, shows NSR at 89 bpm. PAC. 01/01/18 20:17 Labs reviewed. Case discussed with Dr. Rivera to f/u CT reevaluate and disposition. - RAD Interpretation Radiology Orders: 01/01/18 17:29 HEAD W/O CONTRAST [CT] Stat CHEST PORTABLE [RAD] Stat - Medication Orders Current Medication Orders: Sodium Chloride (Sodium Chloride 0.9%) 1,000 mls @ 999 mls/hr IV .Q1H1M STA Stop: 01/01/18 18:30 - Scribe Statement The provider has reviewed the documentation as recorded by the Scribe Charity Ruiz All medical record entries made by the Scribe were at my direction and personally dictated by me. I have reviewed the chart and agree that the record accurately reflects my personal performance of the history, physical exam, medical decision making, and the department course for this patient. I have also personally directed, reviewed, and agree with the discharge instructions and disposition. Disposition/Present on Arrival - Present on Arrival Any Indicators Present on Arrival: No History of DVT/PE: No History of Uncontrolled Diabetes: No Urinary Catheter: No History of Decub. Ulcer: No History Surgical Site Infection Following: None - Disposition Have Diagnosis and Disposition been Completed?: No Diagnosis: Lightheadedness Disposition Time: 20:19 Condition: FAIR Referrals: Ghanshyam Jay MD [Primary Care Provider] - Follow up with primary Forms: [employer] (Setswana)
[2018-01-01 18:32] LABS: PH,URINE 6.5 (4.7-8.0); URINE APPEARANCE CLEAR (CLEAR); URINE BILIRUBIN NEGATIVE (NEGATIVE); URINE BLOOD SMALL (NEGATIVE); URINE COLOR STRAW (YELLOW); URINE GLUCOSE (UA) NEGATIVE (NEGATIVE); URINE LEUKOCYTE ESTERASE SMALL Leu/uL (NEGATIVE); URINE PROTEIN NEGATIVE mg/dL (<30 mg/dL); URINE UROBILINOGEN 0.2 E.U./dL (<1 E.U./dL)
[2018-01-01 18:33] LABS: BASO # 0.03 K/mm3 (0.0-2.0); BASO % 0.3 % (0.0-3.0); EOS # 0.1 (0.0-0.7); EOS % 1.1 % (1.5-5.0); GRAN # 6.31 (1.4-6.5); GRAN % 68.9 % (50.0-68.0); HEMOGLOBIN 10.4 g/dL (12.0-16.0); LYMPH # 1.4 (1.2-3.4); MEAN CELL VOLUME 99.1 fl (80.0-105.0); MEAN CORPUSCULAR HEMOGLOBIN 32.3 pg (25.0-35.0); MEAN CORPUSCULAR HGB CONC 32.6 g/dl (31.0-37.0); MEAN PLATELET VOLUME 9.2 fl (7.0-11.0); MONO # 1.4 (0.1-0.6); MONO % 14.7 % (1.0-6.0); RBC 3.22 10^6/uL (3.5-6.1); RED CELL DISTRIBUTION WIDTH 18.7 % (11.5-14.5); WHITE BLOOD COUNT 9.2 10^3/ul (4.5-11.0)
[2018-01-01 18:45] LABS: ALB/GLOB RATIO 1.2 (1.1-1.8); ALBUMIN 3.7 g/dL (3.0-4.8); ALT/SGPT 18 U/L (7-56); AST/SGOT 43 U/L (14-36); BLOOD UREA NITROGEN 14 mg/dL (7-21); GFR NON-AFRICAN AMERICAN 53
[2018-01-01 18:56] LABS: TROPONIN I < 0.01 ng/mL
--- NOTE | 2018-01-01 20:30 | ED PDOC ---
Physical Exam Vital Signs Reviewed: Yes Vital Signs Temp Pulse Resp BP Pulse Ox 01/01/18 16:49 98.8 F 92 H 16 116/71 95 Temperature: Afebrile Blood Pressure: Normal Pulse: Regular Respiratory Rate: Normal Appearance: Positive for: Well-Appearing, Non-Toxic, Comfortable Pain Distress: None Mental Status: Positive for: Alert and Oriented X 3 - Systems Exam Head: Present: Atraumatic, Normocephalic Pupils: Present: PERRL Extroacular Muscles: Present: EOMI Conjunctiva: Present: Normal Mouth: Present: Moist Mucous Membranes Neck: Present: Normal Range of Motion Respiratory/Chest: Present: Clear to Auscultation, Good Air Exchange. No: Resp iratory Distress, Accessory Muscle Use Cardiovascular: Present: Regular Rate and Rhythm, Normal S1, S2. No: Murmurs Abdomen: No: Tenderness, Distention, Peritoneal Signs Back: Present: Normal Inspection Upper Extremity: Present: Normal Inspection. No: Cyanosis, Edema Lower Extremity: Present: Normal Inspection. No: Edema Neurological: Present: GCS=15, CN II-XII Intact, Speech Normal Skin: Present: Warm, Dry, Normal Color. No: Rashes Psychiatric: Present: Alert, Oriented x 3, Normal Insight, Normal Concentration Medical Decision Making ED Course and Treatment: 01/01/18 20:29 Case endorsed to me by Dr. Robin, pending CT and reassessment. 01/01/18 21:[address] Moeller who requests patient be discharged with a follow up appointment in her office tomorrow. Patient's family is in agreement as patient feels 100% improved in the Emergency room. 01/01/18 21:50 Procedure: Head CT without contrast Impression: Brain atrophy and ventricular dilatation. Extensive periventricular white matter ischemice changes. No acute parenchymal abnormality identified. - Lab Interpretations Lab Results: 01/01/18 18:20 01/01/18 18:20 Lab Results 01/01/18 18:21: Urine Color Straw, Urine Appearance Clear, Urine pH 6.5, Ur Specific [place] <= 1.005, Urine Protein Negative, Urine Glucose (UA) Negative, Urine Ketones Negative, Urine Blood Small H, Urine Nitrate Negative, Urine Bilirubin Negative, Urine Urobilinogen 0.2, Ur Leukocyte Esterase Small H, Urine RBC 10 - 15, Urine WBC 5 - 10, Ur Epithelial Cells 10 - 12 10/07/18 18:20: Sodium 137, Potassium 4.2, Chloride 102, Carbon Dioxide 30, Anion Gap 10, BUN 14, Creatinine 1.0, Est GFR ( Amer) > 60, Est GFR (Non- Af Amer) 53, Random Glucose 92, Calcium 10.0, Magnesium 2.1, Total Bilirubin 0.2, AST 43 H D, ALT 18, Alkaline Phosphatase 131 H, Lactate Dehydrogenase 2008 H, Total Creatine Kinase 28 L, Troponin I < 0.01, Total Protein 6.8, Albumin 3.7, Globulin 3.1, Albumin/Globulin Ratio 1.2 01/01/18 18:20: WBC 9.2 D, RBC 3.22 L, Hgb 10.4 L, Hct 31.9 L, MCV 99.1 D, MCH 32.3, MCHC 32.6, RDW 18.7 H, Plt Count 287, MPV 9.2, Gran % 68.9 H, Lymph % (Auto) 15.0 L, [place] % (Auto) 14.7 H, Eos % (Auto) 1.1 L, Baso % (Auto) 0.3, Gran # 6.31, Lymph # (Auto) 1.4, [place] # (Auto) 1.4 H, Eos # (Auto) 0.1, Baso # (Auto) 0.03 - RAD Interpretation Radiology Orders: 01/01/18 17:29 HEAD W/O CONTRAST [CT] Stat CHEST PORTABLE [RAD] Stat - Medication Orders Current Medication Orders: Discontinued Medications Sodium Chloride (Sodium Chloride 0.9%) 1,000 mls @ 999 mls/hr IV .Q1H1M STA Stop: 01/01/18 18:30 Last Admin: 01/01/18 18:33 Dose: 999 mls/hr eMAR Start Stop Document 01/01/18 18:33 OCS (Rec: 01/01/18 18:33 OCS [id number]) Intravenous Solution Start Date 01/01/18 Start Time 18:33 End Date 01/01/18 End time 19:34 Total Infusion Time 61 - Scribe Statement The provider has reviewed the documentation as recorded by the Scribe Charity Ruiz All medical record entries made by the Scribe were at my direction and personally dictated by me. I have reviewed the chart and agree that the record accurately reflects my personal performance of the history, physical exam, medical decision making, and the department course for this patient. I have also personally directed, reviewed, and agree with the discharge instructions and disposition. Disposition/Present on Arrival - Present on Arrival Any Indicators Present on Arrival: No History of DVT/PE: No History of Uncontrolled Diabetes: No Urinary Catheter: No History of Decub. Ulcer: No History Surgical Site Infection Following: None - Disposition Have Diagnosis and Disposition been Completed?: Yes Diagnosis: Lightheadedness, Diarrhea due to drug Disposition: HOME/ ROUTINE Disposition Time: 21:48 Patient Plan: Discharge Patient Problems: Current Active Problems Problem Status Onset Diarrhea due to drug Acute Lightheadedness Acute Condition: FAIR Additional Instructions: Drink plenty of liquids/follow up with Dr.Lamba weinberg in her office as scheduled/any recurrent symptoms return to the emergency room Referrals: Ghanshyam Jay MD [Primary Care Provider] - Follow up with primary Forms: [employer] (Luxembourger)
[2018-01-01 22:05] VITALS: BP 120/65; PULSE 98; O2SAT 94
[2018-01-01 22:29] VITALS: TEMP 98.3
--- NOTE | 2018-01-02 09:04 | CT ---
Date of service: 01/01/2018 PROCEDURE: CT HEAD WITHOUT CONTRAST. HISTORY: lightheadedness COMPARISON: MRI brain 10/03/2017 TECHNIQUE: Axial computed tomography images were obtained through the head/brain without intravenous contrast. Radiation dose: Total exam DLP = 1005.91 mGy-cm. This CT exam was performed using one or more of the following dose reduction techniques: Automated exposure control, adjustment of the mA and/or kV according to patient size, and/or use of iterative reconstruction technique. FINDINGS: HEMORRHAGE: No intracranial hemorrhage. BRAIN: No mass effect or edema. Moderate to severe patchy and confluent moderate deep/subcortical and periventricular white matter lucency consistent with microvascular ischemic change. 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 No evidence of acute infarct. VENTRICLES: Unremarkable. No hydrocephalus. CALVARIUM: Unremarkable. PARANASAL SINUSES: Unremarkable as visualized. No significant inflammatory changes. MASTOID AIR CELLS: Unremarkable as visualized. No inflammatory changes. OTHER FINDINGS: None. IMPRESSION: Chronic white matter ischemic change. 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 No intracranial mass, hemorrhage or evidence of acute infarct. The preliminary findings for this examination were reported by [facility] at 01/01/2018 at 8:53 p.m.. There is concurrence of this report with the preliminary findings.
--- NOTE | 2018-01-02 09:29 | RAD ---
Date of service: 01/01/2018 HISTORY: near syncope COMPARISON: 10/04/2017 FINDINGS: LUNGS: No active pulmonary disease. PLEURA: No significant pleural effusion identified, no pneumothorax apparent. CARDIOVASCULAR: Normal. OSSEOUS STRUCTURES: No significant abnormalities. VISUALIZED UPPER ABDOMEN: Normal. OTHER FINDINGS: None. IMPRESSION: No active disease.
--- NOTE | 2018-01-02 13:00 | CARD ---
APPROVED REPORT Date of service: 01/01/2018 EKG Measurement Heart [id number] CT 140P13 [id number] <Conclusion> Sinus rhythm with premature atrial complexes Left axis deviation Otherwise normal ECG
== END 2018-01-01 22:11 | disposition home or self-care (01) ==
LOC: ED 16:32
DX: R42 Dizziness and giddiness (principal); K52.1 Toxic gastroenteritis and colitis; T37.3X5A Adverse effect of other antiprotozoal drugs, initial encounter; I10 Essential (primary) hypertension; Z87.891 Personal history of nicotine dependence
CPT/HCPCS: 70450; 71045; 80053; 81001; 82550; 83615; 83735; 84484; 85025; 87086; 93005; 96360; 99285; J7030

== ENCOUNTER 2018-01-21 04:57 | Emergency (ER) | payer MEDICARE ==
[2018-01-21 04:57] VITALS: BMI 26.2
--- NOTE | 2018-01-21 05:53 | ED PDOC ---
Arrival/HPI - General Chief Complaint: Trauma Time Seen by Provider: 01/21/18 05:05 Historian: Patient, Family (Daughter) - History of Present Illness Narrative History of Present Illness (Text): 01/21/18 05:53 Amanda Lee is an 82 year old female, whose past medical history includes stage 4 lung cancer with liver metastasis, hypertension, hyperlpidemia, and bilateral cataract surgery, who presents to the Emergency department brought in by EMS for a left eye injury s/p mechanical fall at home. Patient states she slipped on some water on her bathroom and fell forward, hitting her left eye and face against the rim of the bathtub. Patient now complaining of pain and vision loss to her left eye. Patient denies any loss of consciousness, headache, dizziness, neck pain, back pain, nausea, vomiting, chest pain, or any other complaints. Time/Duration: Prior to Arrival Symptom Onset: Gradual Symptom Course: Unchanged Activities at Onset: Light Context: Home Past Medical History - Provider Review Nursing Documentation Reviewed: Yes - Infectious Disease Hx of Infectious Diseases: None - Cardiac Hx Cardiac Disorders: Yes Hx Hypertension: Yes - Pulmonary Hx Respiratory Disorders: Yes (USED TO SMOKE CIGARETTES.QUIT 10 YRS AGO.< PPD.) Other/Comment: Stage 4 lung cancer. - Neurological Hx Neurological Disorder: No - HEENT Hx HEENT Disorder: No - Renal Hx Renal Disorder: No - Endocrine/Metabolic Hx Endocrine Disorders: Yes (THYROID SX) - Hematological/Oncological Hx Blood Disorders: Yes Hx Anemia: Yes Hx Cancer: Yes Hx Chemotherapy: Yes Hx Shingles: Yes - Integumentary Hx Dermatological Disorder: Yes (HAD HUNTER SURGERY TO LEFT TEMPORAL AND LEFT NECK .) - Musculoskeletal/Rheumatological Hx Musculoskeletal Disorders: Yes (KNEES) Hx Arthritis: Yes - Gastrointestinal Hx Gastrointestinal Disorders: Yes - Genitourinary/Gynecological Hx Genitourinary Disorders: No - Psychiatric Hx Psychophysiologic Disorder: Yes Hx Anxiety: Yes Hx Substance Use: No - Surgical History Hx Orthopedic Surgery: Yes (HIP L) Hx Vascular Access Device: Yes Other/Comment: BX LIVER, SKI CANCER - Anesthesia Hx Anesthesia: No Hx Anesthesia Reactions: No Hx Malignant Hyperthermia: No - Suicidal Assessment Feels Threatened In Home Enviroment: No Family/Social History - Physician Review Nursing Documentation Reviewed: Yes Family/Social History: Unknown Family HX Smoking Status: Former Smoker Hx Alcohol Use: No Hx Substance Use: No Allergies/Home Meds Allergies/Adverse Reactions: Allergies Sulfa (Sulfonamide Antibiotics) Allergy (Verified 01/21/18 05:18) ANAPHYLAXIS Home Medications: Home Meds Medication Instructions Recorded Confirmed Atorvastatin [Lipitor] 10 mg PO DAILY 10/01/17 01/21/18 Losartan [Cozaar] 25 mg PO DAILY 10/01/17 01/21/18 ALPRAZolam [Xanax] 1 tab PO HS PRN 01/01/18 01/21/18 Calcium Carbonate/Vitamin D3 1 tab PO BID 01/01/18 01/01/18 [Calcium 500+D Tablet Chew] Dexamethasone [Decadron] 2 mg PO PRN PRN 01/01/18 01/21/18 Loperamide [Imodium] 1 cap PO PRN PRN 01/01/18 01/21/18 Magnesium Oxide [Magnesium] 400 mg PO BID 01/01/18 01/21/18 Nystatin [Nystatin Oral Susp] 5 ml PO QID 01/01/18 01/01/18 Ondansetron [Zofran Tab] 8 mg PO PRN PRN 01/01/18 01/21/18 Ranitidine HCl [Zantac] 150 mg PO BID 01/01/18 01/21/18 metroNIDAZOLE [Flagyl] 500 mg PO BID 01/01/18 01/01/18 valACYclovir [Valtrex] 500 mg PO DAILY 01/01/18 01/21/18 Review of Systems - Physician Review All systems were reviewed & negative as marked: Yes - Review of Systems Constitutional: Normal. absent: Fevers Eyes: Vision Changes (+left eye vision loss), Other (+left eye injury) ENT: Normal Respiratory: Normal. absent: SOB, Cough Cardiovascular: Normal. absent: Chest Pain Gastrointestinal: Normal. absent: Diarrhea, Vomiting Genitourinary Female: Normal Musculoskeletal: Normal Skin: Normal Neurological: Normal. absent: Headache, Dizziness Endocrine: Normal Hemo/Lymphatic: Normal Psychiatric: Normal Physical Exam Vital Signs Reviewed: Yes Vital Signs Pulse Resp BP Pulse Ox 01/21/18 05:29 100 H 18 134/74 97 Temperature: Afebrile Blood Pressure: Normal Pulse: Regular Respiratory Rate: Normal Appearance: Positive for: Well-Appearing, Non-Toxic, Comfortable Pain Distress: None Mental Status: Positive for: Alert and Oriented X 3 - Systems Exam Head: Present: Normocephalic, Laceration (Superficial 2-3mm laceration to left infraorbital area) Pupils: No: PERRL (Left pupil is miotic and non-reactive) Extroacular Muscles: No: EOMI (EOMI limited secondary to pain in left eye.) Conjunctiva: Present: Other (Protruding scleral hemorrhage and edema from left eye) Ears: Present: NORMAL TM Mouth: Present: Moist Mucous Membranes Neck: Present: Normal Range of Motion. No: Meningeal Signs, MIDLINE TENDERNESS Respiratory/Chest: Present: Clear to Auscultation, Good Air Exchange. No: Respiratory Distress, Accessory Muscle Use Cardiovascular: Present: Regular Rate and Rhythm, Normal S1, S2. No: Murmurs Abdomen: No: Tenderness, Distention, Peritoneal Signs Upper Extremity: Present: Normal Inspection. No: Cyanosis, Edema Lower Extremity: Present: Normal Inspection. No: Edema Neurological: Present: GCS=15, CN II-XII Intact, Speech Normal, Motor Func Grossly Intact, Normal Sensory Function Skin: Present: Warm, Dry, Normal Color. No: Rashes Psychiatric: Present: Alert, Oriented x 3, Normal Insight, Normal Concentration Medical Decision Making ED Course and Treatment: 01/21/18 05:53 Impression: 82 year old female complaining of left eye pain/injury and left eye vision loss s/p mechanical fall at home [employer]. Plan: -- CT Head w/o contrast -- CT Orbits/Facials w/o contrast -- Reassess and disposition Prior Visits: Notes and results from previous visits were reviewed. Progress Notes: 01/21/18 06:[address] Holguin, opthamologist front line leader, who is aware and agrees with plan. Requests CT scans and call back after CT is done, if no abnormal findings, strongly requests pt come to office were proper comprehensive examination can be performed. Family aware.He spoke with daughter on the phone 01/21/18 07:[address] Shi, pending CT results, call back to Dr. Holguin, reassessment, and disposition. - Scribe Statement The provider has reviewed the documentation as recorded by the [place] Provider Scribe Attestation: All medical record entries made by the Scribe were at my direction and personally dictated by me. I have reviewed the chart and agree that the record accurately reflects my personal performance of the history, physical exam, medical decision making, and the department course for this patient. I have also personally directed, reviewed, and agree with the discharge instructions and disposition. Disposition/Present on Arrival - Present on Arrival Any Indicators Present on Arrival: No History of DVT/PE: No History of Uncontrolled Diabetes: No Urinary Catheter: No History of Decub. Ulcer: No History Surgical Site Infection Following: None - Disposition Have Diagnosis and Disposition been Completed?: No Diagnosis: Facial injury, Head injury, Ocular injury Disposition Time: 07:00 Condition: STABLE Forms: [employer] (Armenian)
[2018-01-21] MEDS ORDERED: levoFLOXacin 750 mg in D5W 750 MG/150 ML BAG IVPB STA (08:27)
--- NOTE | 2018-01-21 08:31 | ED PDOC ---
Physical Exam Vital Signs Pulse Resp BP Pulse Ox 01/21/18 05:29 100 H 18 134/74 97 Medical Decision Making ED Course and Treatment: 01/21/18 07:28 Patient endorsed to me by Dr. Rivera. Patient awaiting reassessment and CT results. 08:27 Case discussed with feather boner medical secretary receptionist, who recommends to transfer patient. antibiotics tdap initiated. Case discussed with Dr. Magallanes at [facility], who accepts the case. 01/21/18 08:37 At [facility], case discussed with Dr. Lester, accepting ER physician. 01/21/18 08:47 Patient refuses eye patch. - RAD Interpretation Radiology Orders: 01/21/18 06:02 HEAD W/O CONTRAST [CT] Stat 01/21/18 06:03 ORBITS/ FACIALS W/O CONTRAST [CT] Stat - Scribe Statement The provider has reviewed the documentation as recorded by the [employer] Ugalde Provider Scribe Attestation: All medical record entries made by the Scribe were at my direction and personally dictated by me. I have reviewed the chart and agree that the record accurately reflects my personal performance of the history, physical exam, medical decision making, and the department course for this patient. I have also personally directed, reviewed, and agree with the discharge instructions and disposition. Disposition/Present on Arrival - Present on Arrival Any Indicators Present on Arrival: No History of DVT/PE: No History of Uncontrolled Diabetes: No Urinary Catheter: No History of Decub. Ulcer: No History Surgical Site Infection Following: None - Disposition Have Diagnosis and Disposition been Completed?: Yes Diagnosis: Facial injury, Head injury, Ocular injury, Ruptured globe Disposition: Trans to Other Acute Care Hosp Disposition Time: 09:30 Condition: FAIR Forms: [employer] (Georgian)
[2018-01-21] MEDS ORDERED: TDAP Vaccine 0.5 mL Syr IM ONE (08:38)
[2018-01-21 08:56] LABS: BASO # 0.13 K/mm3 (0.0-2.0); BASO % 0.5 % (0.0-3.0); GRAN # 24.03 (1.4-6.5); GRAN % 84.3 % (50.0-68.0); HEMOGLOBIN 10.5 g/dL (12.0-16.0); LYMPH # 1.7 (1.2-3.4); LYMPH % 5.9 % (22.0-35.0); MEAN CELL VOLUME 100.3 fl (80.0-105.0); MEAN CORPUSCULAR HEMOGLOBIN 32.7 pg (25.0-35.0); MEAN CORPUSCULAR HGB CONC 32.6 g/dl (31.0-37.0); MEAN PLATELET VOLUME 9.2 fl (7.0-11.0); MONO # 2.7 (0.1-0.6); MONO % 9.3 % (1.0-6.0); PLATELET COUNT 129 10^3/uL (120.0-450.0); RBC 3.21 10^6/uL (3.5-6.1); RED CELL DISTRIBUTION WIDTH 17.6 % (11.5-14.5)
[2018-01-21 08:59] LABS: WHITE BLOOD COUNT 28.5 10^3/uL (4.5-11.0)
[2018-01-21 09:07] LABS: INR 1.07; PARTIAL THROMBOPLASTIN TIME 33.9 Seconds (25.1-36.5); PROTHROMBIN TIME 12.3 SECONDS (9.4-12.5)
[2018-01-21 09:14] LABS: ALB/GLOB RATIO 1.2 (1.1-1.8); ALBUMIN 3.8 g/dL (3.0-4.8); ALT/SGPT 17 U/L (7-56); AST/SGOT 38 U/L (14-36); BLOOD UREA NITROGEN 11 mg/dL (7-21); GFR NON-AFRICAN AMERICAN > 60
[2018-01-21 09:21] VITALS: BP 127/85; PULSE 75; RESP 19; TEMP 98
[2018-01-21 09:36] VITALS: O2SAT 99
--- NOTE | 2018-01-21 09:43 | CT ---
Date of service: 01/21/2018 PROCEDURE: CT HEAD WITHOUT CONTRAST. HISTORY: Injury COMPARISON: 01/01/2018. TECHNIQUE: Axial computed tomography images were obtained through the head/brain without intravenous contrast. Radiation dose: Total exam DLP = 809.22 mGy-cm. This CT exam was performed using one or more of the following dose reduction techniques: Automated exposure control, adjustment of the mA and/or kV according to patient size, and/or use of iterative reconstruction technique. FINDINGS: HEMORRHAGE: No intracranial hemorrhage. BRAIN: There are moderate chronic microangiopathic changes. There is no mass, mass effect or abnormal extra-axial fluid collection. There is no territorial infarction. The midline sagittal structures are normal.There are coarse atherosclerotic calcifications in the cavernous carotid arteries. VENTRICLES: The ventricles are normal in size, shape and configuration. CALVARIUM: There is no calvarial fracture or extracranial soft tissue swelling. PARANASAL SINUSES: Predominantly clear. MASTOID AIR CELLS: Predominantly clear. OTHER FINDINGS: There is left orbital proptosis. There is layering high attenuation density in the left globe. There is moderate left periorbital soft tissue swelling. IMPRESSION: 1. Findings are most compatible with acute hemorrhage in the left posterior globe. Associated retinal detachment cannot be excluded. Ophthalmic consult is warranted. 2. No acute intracranial abnormality. A preliminary report was provided by [employer].
--- NOTE | 2018-01-21 10:05 | CT ---
Date of service: 01/21/2018 PROCEDURE: CT ORBITS WITHOUT CONTRAST. HISTORY: injury COMPARISON: None available. TECHNIQUE: Axial CT images of the orbits were obtained. Coronal and sagittal reformats were generated. Radiation dose: Total exam DLP = 687.83 mGy-cm. This CT exam was performed using one or more of the following dose reduction techniques: Automated exposure control, adjustment of the mA and/or kV according to patient size, and/or use of iterative reconstruction technique. FINDINGS: RIGHT ORBIT: RIGHT BONY ORBIT: Normal. RIGHT INTRAORBITAL STRUCTURES: Globe: Normal. Extraocular muscles: Normal. Post septal space: Normal. Optic Nerve: Normal. Lacrimal Apparatus: Normal. RIGHT PRESEPTAL SOFT TISSUES: Normal. LEFT ORBIT: LEFT BONY ORBIT: Normal. LEFT INTRAORBITAL STRUCTURES: Globe: Left exophthalmos. Deformed with irregular left lateral margin and significant hemorrhage in the posterior globe. There is also high attenuation soft tissue in the retro bulbar region. Extraocular muscles: Normal. Post septal space: Normal Optic Nerve: Normal. . Lacrimal Apparatus: Normal. LEFT PRESEPTAL SOFT TISSUES: Moderate periorbital swelling and soft tissue hematoma.. OTHER: None. IMPRESSION: Left globe injury and deformity with intra bulbar and lateral bulbar hemorrhage. Moderate periorbital soft tissue swelling and soft tissue hematoma. A preliminary report was provided by [employer].
[2018-01-21 11:12] LABS: LYMPHOCYTE 11 % (22.0-35.0); METAMYELOCYTE 1 %; MONOCYTE 7 % (1.0-6.0); MYELOCYTE 4 %; NEUTROPHIL 77 % (50.0-70.0)
== END 2018-01-21 09:32 | disposition short-term general hospital (02) ==
LOC: ED 04:57
DX: S05.92XA Unspecified injury of left eye and orbit, initial encounter (principal); W01.0XXA Fall on same level from slipping, tripping and stumbling without subsequent striking against object, initial encounter; Y92.002 Bathroom of unspecified non-institutional (private) residence as the place of occurrence of the external cause; I10 Essential (primary) hypertension; Z87.891 Personal history of nicotine dependence; Z23 Encounter for immunization

== ENCOUNTER 2018-04-14 15:02 | Inpatient (IN) | payer MEDICARE ==
[2018-04-14 15:02] VITALS: BMI 26.2
--- NOTE | 2018-04-14 15:41 | ED PDOC ---
Arrival/HPI - General Chief Complaint: Shortness Of Breath Time Seen by Provider: 04/14/18 15:11 Historian: Patient, Family (Daughter) - History of Present Illness Narrative History of Present Illness (Text): 04/14/18 15:32 An 82 year old, chronically-ill, female, whose past medical history includes stage 4 lung cancer with liver metastasis (on palliative chemotherapy), hypertension, hyperlpidemia, and bilateral cataract surgery, presents to the emergency department with a complaint of hemoptysis. Patient reports that her symptoms have become increasingly worse over the last few months. She reports blood with coughing. Dr. Quiñonez advised the patient to come into the emergency department for further evaluation. Patient's daughter also notes that the patient has been weak and unsteady over the past few days and is concerned that the patient may be dehydrated. The daughter also reports the patient has been on a course of antibiotics for a URI about 2 weeks ago. The patient denies fevers, chills, headache, dizziness, chest pain, shortness of breath, dyspnea on exertion, abdominal pain, nausea, vomiting, diarrhea, back pain, neck pain, urinary/bowel changes, or any other complaint. Oncologist: Dr. Quiñonez Time/Duration: > month Symptom Onset: Gradual Activities at Onset: Rest, Light Context: Home Past Medical History - Provider Review Nursing Documentation Reviewed: Yes - Infectious Disease Hx of Infectious Diseases: None - Reproductive Menopause: Yes - Cardiac Hx Cardiac Disorders: Yes Hx Hypertension: Yes - Pulmonary Hx Respiratory Disorders: Yes (USED TO SMOKE CIGARETTES.QUIT 10 YRS AGO.< PPD.) Other/Comment: Stage 4 lung cancer. - Neurological Hx Neurological Disorder: No - HEENT Hx HEENT Disorder: No - Renal Hx Renal Disorder: No - Endocrine/Metabolic Hx Endocrine Disorders: Yes (THYROID SX) - Hematological/Oncological Hx Blood Disorders: Yes Hx Anemia: Yes Hx Cancer: Yes Hx Chemotherapy: Yes Hx Shingles: Yes - Integumentary Hx Dermatological Disorder: Yes (HAD HUNTER SURGERY TO LEFT TEMPORAL AND LEFT NECK .) - Musculoskeletal/Rheumatological Hx Musculoskeletal Disorders: Yes (KNEES) Hx Arthritis: Yes - Gastrointestinal Hx Gastrointestinal Disorders: Yes - Genitourinary/Gynecological Hx Genitourinary Disorders: No - Psychiatric Hx Psychophysiologic Disorder: Yes Hx Anxiety: Yes Hx Substance Use: No - Surgical History Hx Orthopedic Surgery: Yes (HIP L) Hx Vascular Access Device: Yes Other/Comment: BX LIVER, SKI CANCER - Anesthesia Hx Anesthesia: No Hx Anesthesia Reactions: No Hx Malignant Hyperthermia: No - Suicidal Assessment Feels Threatened In Home Enviroment: No Family/Social History - Physician Review Nursing Documentation Reviewed: Yes Family/Social History: No Known Family HX Smoking Status: Former Smoker Hx Alcohol Use: No Hx Substance Use: No Allergies/Home Meds Allergies/Adverse Reactions: Allergies Sulfa (Sulfonamide Antibiotics) Allergy (Verified 01/21/18 05:18) ANAPHYLAXIS Home Medications: Home Meds Medication Instructions Recorded Confirmed Atorvastatin [Lipitor] 10 mg PO DAILY 10/01/17 01/21/18 Losartan [Cozaar] 25 mg PO DAILY 10/01/17 01/21/18 ALPRAZolam [Xanax] 1 tab PO HS PRN 01/01/18 01/21/18 Calcium Carbonate/Vitamin D3 1 tab PO BID 01/01/18 01/01/18 [Calcium 500+D Tablet Chew] Dexamethasone [Decadron] 2 mg PO PRN PRN 01/01/18 01/21/18 Loperamide [Imodium] 1 cap PO PRN PRN 01/01/18 01/21/18 Magnesium Oxide [Magnesium] 400 mg PO BID 01/01/18 01/21/18 Nystatin [Nystatin Oral Susp] 5 ml PO QID 01/01/18 01/01/18 Ondansetron [Zofran Tab] 8 mg PO PRN PRN 01/01/18 01/21/18 Ranitidine HCl [Zantac] 150 mg PO BID 01/01/18 01/21/18 metroNIDAZOLE [Flagyl] 500 mg PO BID 01/01/18 01/01/18 valACYclovir [Valtrex] 500 mg PO DAILY 01/01/18 01/21/18 Review of Systems - Physician Review All systems were reviewed & negative as marked: Yes - Review of Systems Gastrointestinal: absent: Abdominal Pain Neurological: absent: Headache Physical Exam - Physical Exam Narrative Physical Exam (Text): 04/14/18 15:42 Constitutional: No acute distress. Chronically- ill elderly female. Head: Normocephalic. Atraumatic. Eyes: PERRL. ENT: Moist mucous membranes. No drooling. Neck: Supple. Cardiovascular: Tachycardic Chest: No tenderness. Respiratory: Expiratory wheeze bilaterally. No stridor. GI: Soft. Nontender. Nondistended. Back: No CVA tenderness. Musculoskeletal: No tenderness or swelling of extremities. Skin: No rash. Neurologic: Alert, no focal deficit. Vital Signs Reviewed: Yes Vital Signs Temp Pulse Resp BP Pulse Ox 04/14/18 15:25 98.1 F 109 H 19 124/68 98 Temperature: Afebrile Blood Pressure: Normal Pulse: Tachycardic Respiratory Rate: Normal Appearance: Positive for: Well-Appearing, Non-Toxic, Comfortable Pain Distress: None Mental Status: Positive for: Alert and Oriented X 3 Medical Decision Making ED Course and Treatment: 04/14/18 15:43 Impression: An 82 year old female presents to the emergency department with a complaint of worsening hemoptysis. Plan: -- EKG -- Chest CT -- Labs -- Reassess and disposition Prior Visits: Notes and results from previous visits were reviewed. Progress Notes: 04/14/18 15:44 EKG shows Sinus Tachycardia at [address]- T wave changes. 04/14/18 15:43: Case discussed with Dr. Quiñonez who will consult on case. 04/14/18 17:04 Procedure: CT Chest without contrast Dictator: Hector Perez MD Impression: Large mass lesion at the central portion of right lung associated with complete occlusion of the right upper lobe main bronchus measures approximately 5 centimeter in the largest transverse diameter and 4.3 centimeter in the AP diameter. The mass lesion is encasing and extending around the right main bronchus and precarinal region. The mass is also extending to the right aspect of the mediastinum with partial encasement of the superior vena cava. Osseous metastasis. Liver metastasis and right adrenal 2 centimeter mass likely represent metastasis. Dr. Zaragoza accepts patient onto his service. - Lab Interpretations I have reviewed the lab results: Yes - RAD Interpretation Radiology Orders: 04/14/18 15:27 CHEST W/O CONTRAST [CT] Stat - EKG Interpretation Interpreted by ED Physician: Yes Type: 12 lead EKG - Scribe Statement The provider has reviewed the documentation as recorded by the Scribe Mary Lou England Provider Scribe Attestation: All medical record entries made by the Scribe were at my direction and personally dictated by me. I have reviewed the chart and agree that the record accurately reflects my personal performance of the history, physical exam, medical decision making, and the department course for this patient. I have also personally directed, reviewed, and agree with the discharge instructions and disposition. Disposition/Present on Arrival - Present on Arrival Any Indicators Present on Arrival: No History of DVT/PE: No History of Uncontrolled Diabetes: No Urinary Catheter: No History of Decub. Ulcer: No History Surgical Site Infection Following: None - Disposition Have Diagnosis and Disposition been Completed?: Yes Diagnosis: Hemoptysis Disposition: HOSPITALIZED Disposition Time: 17:30 Patient Plan: Observation Condition: FAIR Referrals: Ghanshyam Jay MD [Primary Care Provider] - Follow up with primary Forms: [employer] (Czech)
[2018-04-14 16:09] LABS: BASO # 0.02 K/mm3 (0.0-2.0); BASO % 0.3 % (0.0-3.0); EOS % 0.3 % (1.5-5.0); GRAN # 4.93 (1.4-6.5); GRAN % 82.6 % (50.0-68.0); HEMOGLOBIN 9.3 g/dL (12.0-16.0); LYMPH # 0.8 (1.2-3.4); LYMPH % 12.5 % (22.0-35.0); MEAN CELL VOLUME 103.2 fl (80.0-105.0); MEAN CORPUSCULAR HEMOGLOBIN 33.2 pg (25.0-35.0); MEAN CORPUSCULAR HGB CONC 32.2 g/dl (31.0-37.0); MEAN PLATELET VOLUME 10.8 fl (7.0-11.0); MONO # 0.3 (0.1-0.6); MONO % 4.3 % (1.0-6.0); RBC 2.8 10^6/uL (3.5-6.1); RED CELL DISTRIBUTION WIDTH 18.4 % (11.5-14.5)
[2018-04-14 16:19] LABS: INR 1.18; PARTIAL THROMBOPLASTIN TIME 42.7 Seconds (25.1-36.5); PROTHROMBIN TIME 13.5 SECONDS (9.4-12.5)
[2018-04-14 16:29] LABS: ALB/GLOB RATIO 1.1 (1.1-1.8); ALBUMIN 3.1 g/dL (3.0-4.8); ALT/SGPT 28 U/L (7-56); AST/SGOT 49 U/L (14-36); BLOOD UREA NITROGEN 19 mg/dL (7-21); CALCIUM 9.5 mg/dL (8.4-10.5); GFR NON-AFRICAN AMERICAN > 60
--- NOTE | 2018-04-14 16:59 | CT ---
Date of service: 04/14/2018 PROCEDURE: CT Chest without contrast HISTORY: hemoptysis, h/o lung cancer, r/o PNA COMPARISON: Comparison is made with the previous study dated 02/28/2018 TECHNIQUE: Contiguous axial images were obtained through the chest without intravenous contrast enhancement. Sagittal and coronal reconstructions were performed. Radiation dose: Total exam DLP = 180.22 mGy-cm. This CT exam was performed using one or more of the following dose reduction techniques: Automated exposure control, adjustment of the mA and/or kV according to patient size, and/or use of iterative reconstruction technique. FINDINGS: LUNGS: Again noted is soft tissue mass lesion at the superior aspect of the right hilum associated with complete occlusion of the right upper lobe bronchus complete collapse of the right upper lobe. Findings are highly suspicious for malignant neoplasm likely in the central portion of the right lung associated with right hilum and right mediastinum extension. The right central lung mass extending to the supra carinal region and extending to the right mediastinum with possible partial inclusion of the superior vena cava. The right bronchus intermedius is patent. There are mild emphysematous changes seen in lungs. There is focal mild bronchiectasis in the left lower lobe. MEDIASTINUM: The thoracic aorta is ectatic and tortuous. The heart is mildly enlarged. Main pulmonary artery is mildly enlarged there are pre ly and right paratracheal lymphadenopathy noted. There is possible trace pericardial effusion. Foci of atherosclerotic calcification noted at aortic arch. PLEURA: No pleural fluid. No pneumothorax. BONES: There is destructive bony lesion at is T4 vertebral body highly suspicious for malignant metastasis. There are also lytic bony lesions seen at the right scapula also suspicious for metastasis. UPPER ABDOMEN: There are multiple mass lesions in the liver consistent with widespread liver metastasis. There is mass lesion in the right adrenal gland measures 2 centimeters suspicious for metastasis. OTHER FINDINGS: None. IMPRESSION: Large mass lesion at the central portion of right lung associated with complete occlusion of the right upper lobe main bronchus measures approximately 5 centimeter in the largest transverse diameter and 4.3 centimeter in the AP diameter. The mass lesion is encasing and extending around the right main bronchus and precarinal region. The mass is also extending to the right aspect of the mediastinum with partial encasement of the superior vena cava. Osseous metastasis. Liver metastasis and right adrenal 2 centimeter mass likely represent metastasis.
--- NOTE | 2018-04-14 17:36 | CARD ---
APPROVED REPORT Date of service: 04/14/2018 EKG Measurement Heart [id number] <Conclusion> Sinus tachycardia Otherwise normal ECG
[2018-04-14] MEDS ORDERED: Docusate-Senna 50 mg-8.6 mg Tab PO PRN (18:53)
[2018-04-14] MEDS: oxyCODONE 5 mg Immediate Release Tab PO PRN (19:25)
[2018-04-14] MEDS: MethylPREDNISolone 40 mg Vial IVP SCH (19:25)
[2018-04-15] MEDS: guaiFENesin-Codeine 100-10mg/5ml Syrup (5 ml) UD PO SCH ×5 (00:54→18:54)
[2018-04-15 06:49] LABS: HEMOGLOBIN 9.5 g/dL (12.0-16.0); MEAN CELL VOLUME 103.1 fl (80.0-105.0); MEAN CORPUSCULAR HEMOGLOBIN 32.8 pg (25.0-35.0); MEAN CORPUSCULAR HGB CONC 31.8 g/dl (31.0-37.0); MEAN PLATELET VOLUME 11.1 fl (7.0-11.0); RBC 2.9 10^6/uL (3.5-6.1); RED CELL DISTRIBUTION WIDTH 18.2 % (11.5-14.5); WHITE BLOOD COUNT 3.7 10^3/uL (4.5-11.0)
[2018-04-15] MEDS: Levalbuterol 0.63 MG/3 ML Inhal Soln UD IH SCH ×3 (08:53→19:58)
--- NOTE | 2018-04-15 09:04 | HP ---
DATE OF EXAM: 04/15/2018 CHIEF COMPLAINT AND HISTORY OF PRESENT ILLNESS: This is an 82-year-old female who is coming into the hospital with a history of lung cancer with mets. She was in at home and was having coughing with hemoptysis. The patient has been seeing Dr. Moeller, her Oncologist for her chemotherapy. The patient is getting palliative chemotherapy for her lung cancer. She denies any chest pain or shortness of breath. No headaches or dizziness. She does have a history of hemoptysis. The patient has no complaints of abdominal pain or back pain. She feels weak. She has been eating, but at times she is not hungry. She has been living with her daughter. She had been on antibiotics about 2 weeks ago. She says that her hemoptysis has become worse. No dysuria or frequency. No diplopia. No dysarthria. No dysphagia. All other review of symptoms are within normal limits except as mentioned. The patient has been getting chemotherapy with Abraxane, last treatment was 03/31/2018. ALLERGIES: SULFA. HOME MEDICATIONS: Lipitor, Cozaar, Xanax, Decadron, Imodium, magnesium, Zofran, Valtrex. SOCIAL HISTORY: She is a former smoker. Denies alcohol or drugs. She smoked cigarettes. She quit about 10 years ago. She was smoking less than one pack a day. PAST SURGICAL HISTORY: Left hip surgery. She had a skin surgery for her skin cancer. PAST MEDICAL HISTORY: Anxiety, dyslipidemia, and hypertension. FAMILY HISTORY: Noncontributory. PHYSICAL EXAMINATION: VITAL SIGNS: Temperature is 97.9, pulse of 99, blood pressure 127/75, respirations 20, and O2 saturation 96%. Height is 4 feet 10 inches, weight is 117 pounds. BMI is 24.5. GENERAL: The patient is lying in bed, comfortable, and in no acute distress. HEENT: Atraumatic and normocephalic. Anicteric sclerae. Moist mucosa. [place] conjunctivae. No oral lesions. NECK: No JVD, anterior and posterior adenopathy, thyromegaly, or bruits. CARDIOVASCULAR: S1 and S2 regular. No murmurs, rubs or gallops. LUNGS: Bilateral rhonchi. Good air entry. No wheezes or rales. ABDOMEN: Bowel sounds are positive. Soft, nontender and nondistended. No hepatosplenomegaly. No rebound and no guarding EXTREMITIES: No cyanosis, clubbing, or edema. NEUROLOGIC: No facial asymmetry. Tongue is midline. No uvula deviation. Power is 5/5 upper extremities and lower extremities. Sensation intact in upper extremities and lower extremities. PSYCHIATRIC: She is awake, alert and oriented x3. No anxiety or depression. She has normal affect. GENITOURINARY: No CVA tenderness. VASCULAR: 2+ pulses in the carotid pulses and pedal pulses. SKIN: No erythema or nodules SPINE: Shows normal curvature. LABORATORY DATA: White count of 6.0, hemoglobin 9.3, repeat hemoglobin is 9.5. INR is 1.1. Chemistry shows a sodium 133, potassium is 4.2, creatinine is 0.9, AST and ALT are [address] has been reviewed. The patient does have a large mass and central portion of the right lung associate with complete occlusion of the right upper lobe bronchus. There is also osseous mets and liver mets. EKG shows sinus tachycardia with a rate of 109, QTC is 444. ASSESSMENT: 1. Hemoptysis. 2. Lung cancer with metastasis to the bone and liver. 3. Dyslipidemia. 4. Hypertension. 5. Anxiety. PLAN: The patient is currently comfortable. She does get episode of hemoptysis, nausea. I will give her Zofran. The patient is on Lipitor for dyslipidemia. She is on losartan for hypertension. She is on antibiotics Rocephin. I will get Dr. Burt from Pulmonary to evaluate the patient. I will get Dr. Moeller who is her Oncologist to see the patient. She is not going to be discharged home. I will change her observation status to admission, placed on her heart healthy diet. Dion Zaragoza MD
[2018-04-15] MEDS ORDERED: Ipratropium 0.02% Inhal Soln (0.5 mg/2.5 ml) UD IH SCH ×2 (10:00→10:59)
[2018-04-15] MEDS ORDERED: cefTRIAXone 1 gm 1 GM/100 ML BAG IVPB SCH (10:00)
[2018-04-15] MEDS: MethylPREDNISolone 40 mg Vial IVP SCH ×2 (12:07→22:07)
[2018-04-15] MEDS: Piperacillin/Tazobact 3.375 gm 100 ML IVPB SCH ×2 (14:21→22:07)
--- NOTE | 2018-04-15 14:51 | CP.PCM.CON ---
History of Present Illness - History of Present Illness History of Present Illness: 82 year old female with PMH of stage 4 lung cancer with liver metastases on palliative chemotherapy, HTN, dyslipidemia, bilateral cataract surgery came in to [facility] [place] because of cough and hemoptysis which has been worsening over the past few months but more so in the past few days. She denies fever or chills, no headache or dizziness, no chest pain, no SOB at rest, no dysphagia, no dysuria, no diarrhea. CT chest has been done which is showing a large right lung mass encasing the right bronchus with occlusion. Infectious Diseases consult is requested to further evaluate and manage. Review of Systems - Review of Systems All systems: reviewed and no additional remarkable complaints except (as per HPI) Past Patient History - Infectious Disease Hx of Infectious Diseases: None - Past Social History Smoking Status: Former Smoker - CARDIAC Hx Cardiac Disorders: Yes Hx Hypercholesterolemia: Yes Hx Hypertension: Yes - PULMONARY Hx Respiratory Disorders: Yes (USED TO SMOKE CIGARETTES.QUIT 10 YRS AGO.< PPD.) Other/Comment: Stage 4 lung cancer. 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 - MUSCULOSKELETAL/RHEUMATOLOGICAL Hx Musculoskeletal Disorders: Yes Hx Arthritis: Yes (knees) Hx Falls: Yes (12/2017) - GASTROINTESTINAL Hx Gastrointestinal Disorders: Yes Hx Ulcer: Yes - GENITOURINARY/GYNECOLOGICAL Hx Genitourinary Disorders: No - PSYCHIATRIC Hx Psychophysiologic Disorder: Yes Hx Anxiety: Yes Hx Substance Use: No - SURGICAL HISTORY Hx Surgeries: Yes Hx Orthopedic Surgery: Yes (HIP L) Other/Comment: BX LIVER, SKIN CANCER - ANESTHESIA Hx Anesthesia: No Hx Anesthesia Reactions: No Hx Malignant Hyperthermia: No Meds Allergies/Adverse Reactions: Allergies Allergy/AdvReac Type Severity Reaction Status Date / Time Sulfa (Sulfonamide Allergy ANAPHYLAXIS Verified 01/21/18 05:18 Antibiotics) - Medications Medications: Current Medications Alprazolam (Xanax) 1 mg PO HS PRN; Protocol PRN Reason: Anxiety Stop: 04/21/18 17:37 Atorvastatin Calcium (Lipitor) 10 mg PO HS LETA Last Admin: 04/14/18 22:08 Dose: 10 mg Doxycycline Hyclate (Doryx) 100 mg PO Q12 [facility]; Protocol Famotidine (Pepcid) 20 mg PO ACBD LETA Last Admin: 04/15/18 12:08 Dose: 20 mg Guaifenesin/Codeine Phosphate (Robitussin W/Codeine) 5 ml PO Q6 LETA Last Admin: 04/15/18 12:09 Dose: 5 ml Piperacillin Sod/Tazobactam Sod (Zosyn 3.375 In Ns 100ml) 100 mls @ 25 mls/hr IVPB Q8 [facility]; Protocol Stop: 04/22/18 14:01 Last Admin: 04/15/18 14:21 Dose: 25 mls/hr Ipratropium [place] (Atrovent) 0.5 mg IH TIDRESP [facility] Last Admin: 04/15/18 14:08 Dose: 0.5 mg Levalbuterol HCl (Xopenex) 0.63 mg IH TIDRESP [facility] Last Admin: 04/15/18 14:07 Dose: 0.63 mg Losartan Potassium (Cozaar) 25 mg PO DAILY [facility] Last Admin: 04/15/18 12:08 Dose: 25 mg Methylprednisolone (Solu-Medrol) 20 mg IVP DAILY [facility] Last Admin: 04/15/18 12:07 Dose: 20 mg Ondansetron HCl (Zofran Inj) 4 mg IVP Q4H PRN PRN Reason: Nausea/Vomiting Last Admin: 04/15/18 08:03 Dose: 4 mg Oxycodone HCl (Oxycodone Immediate Release Tab) 10 mg PO Q6H PRN PRN Reason: Pain, moderate (4-7) Last Admin: 04/14/18 19:25 Dose: 10 mg Senna/Docusate Sodium (Senokot S 50 Mg-8.6 Mg) 1 tab PO BID PRN PRN Reason: Constipation Physical Exam - Constitutional Appears: Cachectic, Chronically Ill - Head Exam Head Exam: NORMAL INSPECTION - ENT Exam ENT Exam: Mucous Membranes Moist - Neck Exam Neck exam: Negative for: Lymphadenopathy, Meningismus - Respiratory Exam Respiratory Exam: Decreased Breath Sounds - Cardiovascular Exam Cardiovascular Exam: +S1, +S2 - GI/Abdominal Exam GI & Abdominal Exam: Soft. absent: Tenderness Results - Vital Signs Recent Vital Signs: Last Vital Signs Temp 97.9 F 04/15/18 06:00 Pulse 99 H 04/15/18 12:08 Resp 20 04/15/18 06:00 BP 127/75 04/15/18 12:08 Pulse Ox 96 04/15/18 06:00 - Labs Result Diagrams: 04/15/18 06:12 04/14/18 16:00 Labs: Laboratory Results - last 24 hr 04/14/18 04/14/18 04/14/18 15:58 16:00 16:00 WBC 6.0 RBC 2.80 L Hgb 9.3 L Hct 28.9 L MCV 103.2 MCH 33.2 MCHC 32.2 RDW 18.4 H Plt Count 158 MPV 10.8 Gran % 82.6 H Lymph % (Auto) 12.5 L [place] % (Auto) 4.3 Eos % (Auto) 0.3 L Baso % (Auto) 0.3 Gran # 4.93 Lymph # (Auto) 0.8 L [place] # (Auto) 0.3 Eos # (Auto) 0.0 Baso # (Auto) 0.02 PT 13.5 H INR 1.18 APTT 42.7 H Sodium Potassium Chloride Carbon Dioxide Anion Gap BUN Creatinine Est GFR ( Amer) Est GFR (Non-Af Amer) POC Glucose (mg/dL) Random Glucose Calcium Total Bilirubin AST ALT Alkaline Phosphatase Total Protein Albumin Globulin Albumin/Globulin Ratio Blood Type O NEGATIVE Blood Type Confirm Antibody Screen Negative BBK History Checked No verified bt 04/14/18 04/14/18 04/15/18 16:00 16:32 06:12 WBC 3.7 L D RBC 2.90 L Hgb 9.5 L Hct 29.9 L MCV 103.1 MCH 32.8 MCHC 31.8 RDW 18.2 H Plt Count 165 MPV 11.1 H Gran % Lymph % (Auto) [place] % (Auto) Eos % (Auto) Baso % (Auto) Gran # Lymph # (Auto) [place] # (Auto) Eos # (Auto) Baso # (Auto) PT INR APTT Sodium 133 Potassium 4.2 Chloride 101 Carbon Dioxide 24 Anion Gap 11 BUN 19 Creatinine 0.9 Est GFR ( Amer) > 60 Est GFR (Non-Af Amer) > 60 POC Glucose (mg/dL) Random Glucose 111 H Calcium 9.5 Total Bilirubin 0.4 AST 49 H D ALT 28 Alkaline Phosphatase 169 H Total Protein 5.8 Albumin 3.1 Globulin 2.7 Albumin/Globulin Ratio 1.1 Blood Type Blood Type Confirm O NEGATIVE Antibody Screen BBK History Checked 04/15/18 04/15/18 07:42 11:35 WBC RBC Hgb Hct MCV MCH MCHC RDW Plt Count MPV Gran % Lymph % (Auto) [place] % (Auto) Eos % (Auto) Baso % (Auto) Gran # Lymph # (Auto) [place] # (Auto) Eos # (Auto) Baso # (Auto) PT INR APTT Sodium Potassium Chloride Carbon Dioxide Anion Gap BUN Creatinine Est GFR ( Amer) Est GFR (Non-Af Amer) POC Glucose (mg/dL) 101 106 Random Glucose Calcium Total Bilirubin AST ALT Alkaline Phosphatase Total Protein Albumin Globulin Albumin/Globulin Ratio Blood Type Blood Type Confirm Antibody Screen BBK History Checked Assessment & Plan - Assessment and Plan (Free Text) Plan: Assessment consider post-obstructive pneumonitis on the right hemoptysis probably related to lung cancer stage 4 lung cancer with liver metastases on palliative chemotherapy HTN dyslipidemia bilateral cataract surgery Plan started patient on Zosyn and will monitor clinically; will follow up blood cx and sputum cx and PCT overall prognosis is poor
[2018-04-15] MEDS ORDERED: Ipratropium 0.02% Inhal Soln (0.5 mg/2.5 ml) UD IH PRN (17:55)
[2018-04-15] MEDS: Arformoterol 15 mcg/2 ml Inh Sol IH SCH (19:57)
[2018-04-15] MEDS: Budesonide 0.5 mg/2 ml Inhal Susp UD IH SCH (19:57)
--- NOTE | 2018-04-16 01:33 | CON ---
DATE: 04/15/2018 PULMONARY CONSULTATION REFERRING PHYSICIAN: Dr. Zaragoza. REASON FOR CONSULTATION: Hemoptysis, cough and shortness of breath, chronic lung disease, lung cancer. HISTORY OF PRESENT ILLNESS: This is an 82-year-old female known to have extensive small cell lung cancer and mets to the other organ, been on chemotherapy as outpatient, recently has a progressive disease, brought in with hemoptysis, cough, shortness of breath. ALLERGIES: TO SULFA. SOCIAL HISTORY: Recently stopped smoking. Denied any alcohol use. FAMILY HISTORY: No significant cardiopulmonary disease reported. PAST MEDICAL HISTORY: Small cell lung cancer with mets to the other organs, anxiety, dyslipidemia, hypertension, chronic obstructive lung disease. MEDICATIONS: She is on Atrovent inhaled 3 times a day, Cozaar 25 mg daily, doxycycline 100 mg twice a day, Lipitor 10 mg daily, oxycodone 10 mg every 6 hours p.r.n., Pepcid 20 mg a.c.b.d., Robitussin with Codeine 5 mL every 6 hours, Solu-Medrol 20 mg daily, Xanax 1 mg at bedtime p.r.n., Xopenex inhaled 3 times a day, Zofran p.r.n., and Zosyn 3.375 g every 8 hours. REVIEW OF SYSTEMS: No headache nor much rhinitis. Has a cough of blood-tinged sputum, short of breath. No nausea. No vomiting, diarrhea, leg pain, or leg swelling. PHYSICAL EXAMINATION: GENERAL: No acute distress. VITAL SIGNS: Temperature is 98, heart rate is 105, respiratory rate is 20, blood pressure 123/71, pulse ox 90% on room air. HEENT: Moist mucous membranes. Crowded airway. NECK: Supple. No JVD. LUNGS: Have scattered rhonchi and wheezing. HEART: S1 and S2. ABDOMEN: Soft, nontender. No organomegaly. EXTREMITIES: No edema. NEUROLOGIC: Awake, alert. Follows simple commands. LABORATORY DATA: Shows hemoglobin 9.5, hematocrit 29.9, WBC 3.7, platelet is 165. INR 1.18, PTT 43. Sodium 133, potassium 4.2, chloride 101, bicarbonate 24, BUN 19, creatinine 0.9, glucose 111, calcium 9.5, total bili 0.4. AST 49, ALT 28, alk phos is 169, albumin is 3.1. Microbiology: No culture is back. CT of the chest is done on admission, which shows large mass lesion in the central portion of the right lung associated with complete occlusion of the right upper lobe main bronchus, measures approximately 5 cm, the largest transverse diameter and 4.3 cm in the AP diameter. The mass lesion is encasing and extended around the right main bronchus and precarinal region, also extended to the right aspects of the mediastinum at the partial encasement of the superior vena cava. There are also noted liver metastatic disease and right adrenal 2-cm mass, likely representing metastatic disease. 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 Case discussed with the patient and daughter at bedside. All their questions answered. Agree with Dr. Zaragoza. We will increase the steroids. Continue antibiotics, inhaled bronchodilators, gastric prophylaxis, deep venous thrombosis prophylaxis, anemia workup. Clinically, probably she can benefit from radiation therapy to the right lung. We will speak to Dr. Zaragoza as well as to Dr. Moeller. Thank you and we will follow with you. Maddy Burt MD
[2018-04-16] MEDS: guaiFENesin-Codeine 100-10mg/5ml Syrup (5 ml) UD PO SCH ×4 (06:00→17:50)
[2018-04-16] MEDS: Piperacillin/Tazobact 3.375 gm 100 ML IVPB SCH ×3 (06:06→21:26)
[2018-04-16 06:50] LABS: IRON 47 ug/dL (45-180)
[2018-04-16 06:59] LABS: % IRON SATURATION 24 % (20-55); TOTAL IRON BINDING CAPACITY 195 ug/dL (265-497)
[2018-04-16] MEDS: Arformoterol 15 mcg/2 ml Inh Sol IH SCH ×2 (08:20→19:57)
[2018-04-16] MEDS: Budesonide 0.5 mg/2 ml Inhal Susp UD IH SCH ×2 (08:21→19:57)
[2018-04-16] MEDS: Levalbuterol 0.63 MG/3 ML Inhal Soln UD IH SCH ×3 (08:23→19:58)
[2018-04-16] MEDS ORDERED: CYCLOPENTOLATE 2% OS SCH (10:00)
[2018-04-16] MEDS: MethylPREDNISolone 40 mg Vial IVP SCH ×2 (10:40→21:26)
[2018-04-16] MEDS: Enoxaparin 40 mg Syringe SC SCH (10:41)
[2018-04-16 13:29] LABS: FOLATE 12.4 ng/mL
--- NOTE | 2018-04-16 13:32 | CP.PCM.PN ---
Subjective - Date & Time of Evaluation Date of Evaluation: 04/16/18 Time of Evaluation: 09:40 - Subjective Subjective: Comfortable in bed, no no hemoptysis currently, no fevers. Objective - Vital Signs/Intake and Output Vital Signs (last 24 hours): Temp Pulse Resp BP Pulse Ox 97.9 F 99 H 20 127/75 96 04/15/18 06:00 04/15/18 12:08 04/15/18 06:00 04/15/18 12:08 04/15/18 06:00 - Medications Medications: Current Medications Alprazolam (Xanax) 1 mg PO HS PRN; Protocol PRN Reason: Anxiety Stop: 04/21/18 17:37 Atorvastatin Calcium (Lipitor) 10 mg PO HS [facility]A Last Admin: 04/14/18 22:08 Dose: 10 mg Doxycycline Hyclate (Doryx) 100 mg PO Q12 [facility]; Protocol Famotidine (Pepcid) 20 mg PO ACBD [facility] Last Admin: 04/15/18 12:08 Dose: 20 mg Guaifenesin/Codeine Phosphate (Robitussin W/Codeine) 5 ml PO Q6 [facility] Last Admin: 04/15/18 12:09 Dose: 5 ml Piperacillin Sod/Tazobactam Sod (Zosyn 3.375 In Ns 100ml) 100 mls @ 25 mls/hr IVPB Q8 [facility]; Protocol Stop: 04/22/18 14:01 Last Admin: 04/15/18 14:21 Dose: 25 mls/hr Ipratropium [place] (Atrovent) 0.5 mg IH TIDRESP [facility] Last Admin: 04/15/18 14:08 Dose: 0.5 mg Levalbuterol HCl (Xopenex) 0.63 mg IH TIDRESP [facility] Last Admin: 04/15/18 14:07 Dose: 0.63 mg Losartan Potassium (Cozaar) 25 mg PO DAILY [facility] Last Admin: 04/15/18 12:08 Dose: 25 mg Methylprednisolone (Solu-Medrol) 20 mg IVP DAILY [facility] Last Admin: 04/15/18 12:07 Dose: 20 mg Ondansetron HCl (Zofran Inj) 4 mg IVP Q4H PRN PRN Reason: Nausea/Vomiting Last Admin: 04/15/18 08:03 Dose: 4 mg Oxycodone HCl (Oxycodone Immediate Release Tab) 10 mg PO Q6H PRN PRN Reason: Pain, moderate (4-7) Last Admin: 04/14/18 19:25 Dose: 10 mg Senna/Docusate Sodium (Senokot S 50 Mg-8.6 Mg) 1 tab PO BID PRN PRN Reason: Constipation - Labs Labs: 04/15/18 06:12 04/14/18 16:00 PT 13.5 SECONDS (9.4-12.5) H 04/14/18 16:00 INR 1.18 04/14/18 16:00 APTT 42.7 Seconds (25.1-36.5) H 04/14/18 16:00 - Constitutional Appears: Chronically Ill - Head Exam Head Exam: NORMAL INSPECTION - Respiratory Exam Respiratory Exam: Decreased Breath Sounds - Cardiovascular Exam Cardiovascular Exam: +S1, +S2 - GI/Abdominal Exam GI & Abdominal Exam: Soft. absent: Tenderness Assessment and Plan - Assessment and Plan (Free Text) Plan: Assessment consider post-obstructive pneumonitis on the right hemoptysis probably related to lung cancer stage 4 lung cancer with liver metastases on palliative chemotherapy HTN dyslipidemia bilateral cataract surgery Plan continue Zosyn day 2 and will continue to monitor clinically; will follow up blood cx and sputum cx and PCT overall prognosis is poor
[2018-04-16] MEDS: CYCLOPENTOLATE 2% OS SCH ×2 (14:21→17:51)
--- NOTE | 2018-04-16 20:52 | PN ---
DATE: 04/16/2018 SUBJECTIVE: The patient is an 82-year-old, seen and examined, lying in bed, seems to be comfortable, minimal shortness of breath, as per nurse is fair. She came in because of cough and hemoptysis. The patient was diagnosed with lung CA and has been on chemotherapy. She is comfortable, lying in bed. PHYSICAL EXAMINATION: VITAL SIGNS: She is afebrile. Pulse 99, respiration 18, and blood pressure 123/79. LUNGS: Bilateral fair air flow. No rhonchi or crackle noted. HEART: S1 and S2, audible. ABDOMEN: Soft and nontender. No rebound. No guarding. NEUROLOGICAL: The patient is awake, alert and able to communicate. LABORATORY DATA: WBC 3.7, hemoglobin 9.5, hematocrit 29, and platelet of 165. Chemistry; blood sugar is 149. ASSESSMENT: 1. Status post hemoptysis. 2. History of lung carcinoma on chemotherapy. 3. Metastatic lung carcinoma, metastasis to the bone and the liver. 4. Anxiety disorder. 5. Hypertension. 6. Hyperlipidemia. 7. Anemia chronic. 8. Hyperglycemia secondary to steroid. The patient is on Decadron, the patient got during chemotherapy. PLAN: Currently the patient is on nebulizer treatment. She is on Brovana. She is on losartan. She is getting doxycycline. She is on statin. She is on DVT prophylaxis, out of bed to chair. Physical therapy has been requested. Jose Roberto Blanco MD
[2018-04-16] MEDS: oxyCODONE 5 mg Immediate Release Tab PO PRN (21:25)
--- NOTE | 2018-04-16 23:02 | PN ---
DATE: 04/16/2018 PULMONARY PROGRESS NOTE REFERRING PHYSICIAN: Dion Zaragoza MD SUBJECTIVE: She is lying in bed, feels better than yesterday. Still has some cough. No hemoptysis. No hematemesis. No hematuria. No diarrhea. No leg pain or leg swelling. OBJECTIVE: GENERAL: In no acute distress. VITAL SIGNS: Temperature is 98, heart rate is 100, respiratory rate is 18, blood pressure 102/57, pulse ox 95% on room air. HEENT: Moist mucous membranes. No ulcer or thrush noted. NECK: Supple. No JVD. LUNGS: Have scattered rhonchi, prolonged expiratory phase. HEART: S1, S2. ABDOMEN: Soft, nontender. No organomegaly. EXTREMITIES: No edema. NEUROLOGIC: Awake, alert, follows simple commands. MEDICATIONS: She is on Atrovent inhaled every 8 hours p.r.n., Brovana inhaled twice a day, Cozaar 25 mg daily, also getting eye drops, doxycycline 100 mg twice a day, Lipitor 10 mg daily, Lovenox 40 mg subcu daily, OxyContin Immediate Release 10 mg every 6 hours, Pepcid 20 mg before breakfast, Pulmicort inhaled twice a day, Robitussin with codeine every 6 hours, Solu-Medrol 40 mg every 12 hours, Xanax 1 mg daily p.r.n., Xopenex inhaled every 8 hours, Zofran on p.r.n. basis, Zosyn 3.375 g IV every 8 hours. LABORATORY DATA: Shows blood sugar 173. 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 Pulmonary point of view, doing okay. Spoke to the patient's daughter at bedside. All her questions answered. Spoke to Oncology Services. Continue intravenous and inhaled bronchodilator, antibiotics, gastric prophylaxis, deep venous thrombosis prophylaxis. Awaiting for Oncology, may benefit from radiation therapy. Thank you and we will follow with you. Maddy Burt MD [facility] # [id number]
--- NOTE | 2018-04-17 05:34 | CP.PCM.PN ---
<Olena Tipton - Last Filed: 04/17/18 11:29> Subjective - Date & Time of Evaluation Date of Evaluation: 04/17/18 Time of Evaluation: 07:30 - Subjective Subjective: Pgy3 Medicine progress note for Dr. Zaragoza Patient seen and examined at bedside. Nursing reported overnight patient had 2 episodes of confusion but was able to be redirected. Patient was resting comfortably this morning. She denied acute complaints of fever, chest pain, SOB, cough, hemoptysis, abd pain, pain/swelling in her legs b/l. Complete ROS unobtainable due to patient's underlying dementia. Objective - Vital Signs/Intake and Output Vital Signs (last 24 hours): Temp Pulse Resp BP Pulse Ox 97.9 F 100 H 18 102/57 L 95 04/16/18 16:00 04/16/18 16:00 04/16/18 16:00 04/16/18 16:00 04/16/18 06:00 Intake and Output: 04/16/18 04/17/18 18:59 06:59 Intake Total 1260 Output Total 300 Balance 960 - Medications Medications: Current Medications Alprazolam (Xanax) 1 mg PO HS PRN; Protocol PRN Reason: Anxiety Stop: 04/21/18 17:37 Last Admin: 04/16/18 21:25 Dose: 1 mg Arformoterol Tartrate (Brovana) 15 mcg IH [id number] [facility] Last Admin: 04/16/18 19:57 Dose: 15 mcg Atorvastatin Calcium (Lipitor) 10 mg PO HS [facility] Last Admin: 04/16/18 21:25 Dose: 10 mg Budesonide (Pulmicort Respules) 0.5 mg IH [id number] [facility] Last Admin: 04/16/18 19:57 Dose: 0.5 mg Doxycycline Hyclate (Doryx) 100 mg PO Q12 [facility]; Protocol Last Admin: 04/16/18 21:25 Dose: 100 mg Enoxaparin Sodium (Lovenox) 40 mg SC DAILY [facility]; Protocol Last Admin: 04/16/18 10:41 Dose: 40 mg Famotidine (Pepcid) 20 mg PO ACBD [facility] Last Admin: 04/16/18 17:51 Dose: 20 mg Guaifenesin/Codeine Phosphate (Robitussin W/Codeine) 5 ml PO Q6 [facility] Last Admin: 04/16/18 17:50 Dose: 5 ml Piperacillin Sod/Tazobactam Sod (Zosyn 3.375 In Ns 100ml) 100 mls @ 25 mls/hr IVPB Q8 [facility]; Protocol Stop: 04/22/18 14:01 Last Admin: 04/16/18 21:26 Dose: 25 mls/hr Ipratropium [place] (Atrovent) 0.5 mg IH TIDRESP PRN PRN Reason: Shortness of Breath Levalbuterol HCl (Xopenex) 0.63 mg IH TIDRESP [facility] Last Admin: 04/16/18 19:58 Dose: 0.63 mg Losartan Potassium (Cozaar) 25 mg PO DAILY [facility] Last Admin: 04/16/18 10:41 Dose: 25 mg Methylprednisolone (Solu-Medrol) 40 mg IVP Q12 [facility] Last Admin: 04/16/18 21:26 Dose: 40 mg Non-Formulary Medication (Cyclopentolate 2% Ophth [Cyclogyl 2% Ophth]) 1 drop OS TID [facility] Last Admin: 04/16/18 17:51 Dose: 1 drop Ondansetron HCl (Zofran Inj) 4 mg IVP Q4H PRN PRN Reason: Nausea/Vomiting Last Admin: 04/15/18 08:03 Dose: 4 mg Oxycodone HCl (Oxycodone Immediate Release Tab) 10 mg PO Q6H PRN PRN Reason: Pain, moderate (4-7) Last Admin: 04/16/18 21:25 Dose: 10 mg Senna/Docusate Sodium (Senokot S 50 Mg-8.6 Mg) 1 tab PO BID PRN PRN Reason: Constipation - Labs Labs: 04/15/18 06:12 04/14/18 16:00 PT 13.5 SECONDS (9.4-12.5) H 04/14/18 16:00 INR 1.18 04/14/18 16:00 APTT 42.7 Seconds (25.1-36.5) H 04/14/18 16:00 - Constitutional Appears: No Acute Distress, Chronically Ill - Head Exam Head Exam: ATRAUMATIC, NORMAL INSPECTION, NORMOCEPHALIC - Eye Exam Eye Exam: Normal appearance. absent: Conjunctival injection, Scleral icterus - ENT Exam ENT Exam: Mucous Membranes Moist - Neck Exam Neck Exam: Full ROM, Normal Inspection - Respiratory Exam Respiratory Exam: NORMAL BREATHING PATTERN. absent: Accessory Muscle Use, Decreased Breath Sounds, Rales, Rhonchi, Wheezes Additional comments: R chest wall port noted - Cardiovascular Exam Cardiovascular Exam: Tachycardia, +S1, +S2 - GI/Abdominal Exam GI & Abdominal Exam: Soft, Normal Bowel Sounds. absent: Distended, Firm, Gu arding, Rigid, Tenderness - Extremities Exam Extremities Exam: Normal Capillary Refill, Normal Inspection. absent: Pedal Edema, Tenderness - Back Exam Back Exam: NORMAL INSPECTION. absent: rash noted - Neurological Exam Neurological Exam: Alert, Awake - Psychiatric Exam Psychiatric exam: Normal Affect, Normal Mood - Skin Skin Exam: Dry, Intact, Normal Color, Warm Assessment and Plan - Assessment and Plan (Free Text) Assessment: - Hemoptysis likely secondary to Stage IV small cell lung ca - R lung post obstructive pneumonitis - COPD - Stage IV small cell lung cancer with mets to bone and liver on palliative chemo - HTN - HLD - anxiety - pain management - bilateral cataract surgery - dementia Plan: Patient's blood work, vitals, and imaging reviewed in chart. Patient had no additional episodes of hemoptysis overnight. Patient has a history of small cell lung ca diagnosed September 2017 and had undergone 3 cycles of carboplatin and etoposide which she was unable to tolerate due to diarrhe and was switched to single agent rivaroxaban. As per recommendations of heme/onc Dr. Moeller, radiation-onc Dr. Garcia consulted for possible short course of radiation for endobronchial lesion noted on Chest CT. Patient is on IV solumedrol and bronchodilator therapy as per pulm reccs for chronic COPD. Continue abx therapy Doxycycline and Zosyn for post obstructive pneumonitis as per ID reccs. Patient continued on home Cozaar to maintain normotension. Patient also continued on home lipitor for dyslipidemia. Continue xanax at night for anxiety and re- direction as needed. Patient's pain is being managed at this time with oxycodone 10q6 and patient has bowel regimen in place to avoid constipation. Patient on GI and DVT ppx at this time with pepcid and Lovenox respectively. Will continue to monitor patient closely. Patient is not a candidate for TCU due to insurance. PT eval pending for discharge planning. Patient will likely need [facility] vs home with services. Discussed with Dr. Nik Tipton PGY3 <Dion Zaragoza S - Last Filed: 04/17/18 17:07> Objective - Vital Signs/Intake and Output Vital Signs (last 24 hours): Temp Pulse Resp BP Pulse Ox 97.5 F L 98 H 19 123/67 95 04/17/18 16:23 04/17/18 16:23 04/17/18 16:23 04/17/18 16:23 04/17/18 16:23 Intake and Output: 04/17/18 04/17/18 06:59 18:59 Intake Total 1260 Output Total 300 Balance 960 - Medications Medications: Current Medications Alprazolam (Xanax) 1 mg PO HS PRN; Protocol PRN Reason: Anxiety Stop: 04/21/18 17:37 Last Admin: 04/16/18 21:25 Dose: 1 mg Arformoterol Tartrate (Brovana) 15 mcg IH [id number] [facility] Last Admin: 04/17/18 07:41 Dose: Not Given Atorvastatin Calcium (Lipitor) 10 mg PO HS [facility] Last Admin: 04/16/18 21:25 Dose: 10 mg Budesonide (Pulmicort Respules) 0.5 mg IH [id number] [facility] Last Admin: 04/17/18 07:41 Dose: Not Given Doxycycline Hyclate (Doryx) 100 mg PO Q12 [facility]; Protocol Last Admin: 04/17/18 09:32 Dose: 100 mg Enoxaparin Sodium (Lovenox) 30 mg SC DAILY [facility]; Protocol Famotidine (Pepcid) 20 mg PO ACBD [facility] Last Admin: 04/17/18 09:33 Dose: 20 mg Guaifenesin/Codeine Phosphate (Robitussin W/Codeine) 5 ml PO Q6 [facility] Last Admin: 04/17/18 13:23 Dose: 5 ml Piperacillin Sod/Tazobactam Sod (Zosyn 3.375 In Ns 100ml) 100 mls @ 25 mls/hr IVPB Q8 [facility]; Protocol Stop: 04/22/18 14:01 Last Admin: 04/17/18 13:24 Dose: 25 mls/hr Ipratropium [place] (Atrovent) 0.5 mg IH TIDRESP PRN PRN Reason: Shortness of Breath Levalbuterol HCl (Xopenex) 0.63 mg IH TIDRESP [facility] Last Admin: 04/17/18 14:10 Dose: 0.63 mg Losartan Potassium (Cozaar) 25 mg PO DAILY [facility] Last Admin: 04/17/18 09:31 Dose: 25 mg Methylprednisolone (Solu-Medrol) 40 mg IVP Q12 [facility] Last Admin: 04/17/18 09:34 Dose: 40 mg Non-Formulary Medication (Cyclopentolate 2% Ophth [Cyclogyl 2% Ophth]) 1 drop OS TID [facility] Last Admin: 04/17/18 09:32 Dose: 1 drop Ondansetron HCl (Zofran Inj) 4 mg IVP Q4H PRN PRN Reason: Nausea/Vomiting Last Admin: 04/17/18 13:18 Dose: 4 mg Oxycodone HCl (Oxycodone Immediate Release Tab) 10 mg PO Q6H PRN PRN Reason: Pain, moderate (4-7) Last Admin: 04/16/18 21:25 Dose: 10 mg Senna/Docusate Sodium (Senokot S 50 Mg-8.6 Mg) 1 tab PO BID PRN PRN Reason: Constipation - Labs Labs: 04/17/18 08:00 04/17/18 08:00 PT 13.5 SECONDS (9.4-12.5) H 04/14/18 16:00 INR 1.18 04/14/18 16:00 APTT 42.7 Seconds (25.1-36.5) H 04/14/18 16:00 Assessment and Plan - Assessment and Plan (Free Text) Plan: Pt seen and examined by me. I have reviewed the note of the medical corps officer and I agree with it. I have discussed the assessment and plan with the resident. I have reviewed the medications and the last labs. Pt hemoptysis and has small cell Ca. Spoke to Dr Moeller and she has spoken to family about the pt's prognosis. She is on IV steoids. She will be evaluated by PT. She does not qualify for TCU due to insurance issues. She is on oxcodone for her pain. Will need evaluation for possible palliative radiation. She is on Zosyn for an obstuctive pneumonia. She is on Albuterol.
[2018-04-17] MEDS: guaiFENesin-Codeine 100-10mg/5ml Syrup (5 ml) UD PO SCH ×4 (05:59→17:23)
[2018-04-17] MEDS: Piperacillin/Tazobact 3.375 gm 100 ML IVPB SCH ×3 (06:17→21:19)
[2018-04-17] MEDS: Arformoterol 15 mcg/2 ml Inh Sol IH SCH ×2 (07:41→19:40)
[2018-04-17] MEDS: Levalbuterol 0.63 MG/3 ML Inhal Soln UD IH SCH ×3 (07:41→19:40)
[2018-04-17] MEDS: Budesonide 0.5 mg/2 ml Inhal Susp UD IH SCH ×2 (07:41→19:40)
[2018-04-17 08:20] LABS: GRAN # 2.31 (1.4-6.5); GRAN % 58.4 % (50.0-68.0); HEMOGLOBIN 9.5 g/dL (12.0-16.0); LYMPH # 0.9 (1.2-3.4); LYMPH % 22.7 % (22.0-35.0); MEAN CELL VOLUME 103.5 fl (80.0-105.0); MEAN CORPUSCULAR HEMOGLOBIN 33.1 pg (25.0-35.0); MEAN PLATELET VOLUME 10.4 fl (7.0-11.0); MONO # 0.8 (0.1-0.6); MONO % 18.9 % (1.0-6.0); RBC 2.87 10^6/uL (3.5-6.1); RED CELL DISTRIBUTION WIDTH 18.6 % (11.5-14.5)
[2018-04-17 08:30] LABS: ALB/GLOB RATIO 1.1 (1.1-1.8); ALBUMIN 3.1 g/dL (3.0-4.8); ALT/SGPT 27 U/L (7-56); AST/SGOT 43 U/L (14-36); BLOOD UREA NITROGEN 21 mg/dL (7-21); CALCIUM 9.8 mg/dL (8.4-10.5); GFR NON-AFRICAN AMERICAN 53
[2018-04-17] MEDS: Enoxaparin 40 mg Syringe SC SCH (09:32)
[2018-04-17] MEDS: CYCLOPENTOLATE 2% OS SCH ×3 (09:32→17:22)
[2018-04-17] MEDS: MethylPREDNISolone 40 mg Vial IVP SCH ×2 (09:34→21:19)
--- NOTE | 2018-04-17 10:32 | CON ---
DATE: 04/17/2018 REASON FOR CONSULTATION: Stage IV small-cell lung cancer. CONSULT REQUESTED BY: Dion Zaragoza MD HISTORY OF PRESENT ILLNESS: Ms. Lee is an 82-year-old female diagnosed with small cell lung cancer in 09/2017. She has high tumor burden in lung and liver. She was treated with 3 cycles of carboplatin and etoposide with stable disease. Recent CAT scan of the chest done without contrast showed progression of disease in 02/2018. She was not tolerating carboplatin and etoposide very well. She would have chronic diarrhea with chemo. She was switched to single agent rivaroxaban for past few weeks, which she is tolerating well. She had hemoptysis light off and on. She was complaining of increased hemoptysis for past few days. Therefore, advised to get admitted to the hospital. She was also feeling weak and fatigue. CT chest is done in the ER showed endobronchial lesion disease on right side of the chest same as before. She has been treating with IV antibiotic for post-obstructive pneumonia, GC has improved lightly. She was also complaining of upper abdominal pain which has decreased now. PAST MEDICAL HISTORY: COPD; hypothyroidism; anxiety; anemia, chronic. PAST SURGICAL HISTORY: Bilateral knee osteoarthritis, GERD. PERSONAL HISTORY: Former smoker. No history of alcohol abuse. FAMILY HISTORY: Noncontributory. ALLERGIES: SULFA CAUSES ANAPHYLAXIS. CURRENT MEDICATIONS: Xanax, Brovana 15 mcg inhalation every 12 hours, Lipitor 10 mg daily, Pulmicort, doxepin every 12 hours, Lovenox 40 mg subcutaneously daily, Pepcid 20 mg p.o. twice a day, Robitussin with codeine every 6 hours, Atrovent, Xopenex, methylprednisolone 40 mg every 12 hours, Zofran 4 mg IV every 4 hours, oxycodone p.r.n., Zosyn, Senokot. LABORATORY DATA: White count 4, hemoglobin 9.5, hematocrit 29.7 and platelet 156. Sodium 138, potassium 4.6, creatinine 1. ASSESSMENT AND PLAN: 1. Stage IV lung cancer, metastatic right-sided tumor, metastatic lesion in the liver, adrenal. Chemotherapy as under HPI. I have discussed with the family on previous occasion about attenuated course of radiation that will help with hemoptysis, but then hemoptysis resolved on its own. She has bad disease, she cannot be off chemo for 4 to 6 weeks. Therefore, radiation was not considered before. I discussed with the patient again short course of radiation, may be 2 weeks to help with the endobronchial lesion and hemoptysis which she agreed with that. I discussed with Dr. Garcia radiation and oncology. She will be evaluating her today. Discussed with Dr. Zaragoza. 2. Chronic obstructive pulmonary disease and respiratory distress improved. She is on high dose steroid 40 mg IV every 12 hours. She is immunocompromised and very high risk for opportunistic infection. I would consider weaning Solo-Medrol sooner. We will discuss with Dr. Burt, continue bronchodilator. 3. Pain controlled with current medications, oxycodone p.r.n. 4. Post-obstructive pneumonia, currently on Zosyn and doxy. Continue deep venous thrombosis prophylaxis with 40 mg subcutaneous Lovenox. Discussed with Dr. Evans. Discussed with Dr. Garcia. Discussed with the staff nurse. Discussed with the patient. Now, we will call the daughter and let her know about her decision for radiation. Annia Moeller MD
--- NOTE | 2018-04-17 11:31 | CP.PCM.PN ---
Subjective - Date & Time of Evaluation Date of Evaluation: 04/17/18 Time of Evaluation: 08:50 - Subjective Subjective: Non-toxic, no fevers. Objective - Vital Signs/Intake and Output Vital Signs (last 24 hours): Temp Pulse Resp BP Pulse Ox 97.1 F L 99 H 18 123/79 95 04/16/18 06:00 04/16/18 10:41 04/16/18 06:00 04/16/18 10:41 04/16/18 06:00 Intake and Output: 04/16/18 04/16/18 06:59 18:59 Intake Total 180 Output Total 200 Balance -20 - Medications Medications: Current Medications Alprazolam (Xanax) 1 mg PO HS PRN; Protocol PRN Reason: Anxiety Stop: 04/21/18 17:37 Last Admin: 04/15/18 22:08 Dose: 1 mg Arformoterol Tartrate (Brovana) 15 mcg IH [id number] [facility] Last Admin: 04/16/18 08:20 Dose: 15 mcg Atorvastatin Calcium (Lipitor) 10 mg PO HS [facility] Last Admin: 04/15/18 22:08 Dose: 10 mg Budesonide (Pulmicort Respules) 0.5 mg IH [id number] [facility] Last Admin: 04/16/18 08:21 Dose: 0.5 mg Doxycycline Hyclate (Doryx) 100 mg PO Q12 [facility]; Protocol Last Admin: 04/16/18 10:40 Dose: 100 mg Enoxaparin Sodium (Lovenox) 40 mg SC DAILY [facility]; Protocol Last Admin: 04/16/18 10:41 Dose: 40 mg Famotidine (Pepcid) 20 mg PO ACBD [facility] Last Admin: 04/16/18 10:40 Dose: 20 mg Guaifenesin/Codeine Phosphate (Robitussin W/Codeine) 5 ml PO Q6 [facility] Last Admin: 04/16/18 00:00 Dose: Not Given Piperacillin Sod/Tazobactam Sod (Zosyn 3.375 In Ns 100ml) 100 mls @ 25 mls/hr IVPB Q8 [facility]; Protocol Stop: 04/22/18 14:01 Last Admin: 04/16/18 06:06 Dose: 25 mls/hr Ipratropium [place] (Atrovent) 0.5 mg IH TIDRESP PRN PRN Reason: Shortness of Breath Levalbuterol HCl (Xopenex) 0.63 mg IH TIDRESP [facility] Last Admin: 04/16/18 08:23 Dose: 0.63 mg Losartan Potassium (Cozaar) 25 mg PO DAILY [facility] Last Admin: 04/16/18 10:41 Dose: 25 mg Methylprednisolone (Solu-Medrol) 40 mg IVP Q12 [facility] Last Admin: 04/16/18 10:40 Dose: 40 mg Non-Formulary Medication (Cyclopentolate 2% Ophth [Cyclogyl 2% Ophth]) 1 drop OS TID [facility] Ondansetron HCl (Zofran Inj) 4 mg IVP Q4H PRN PRN Reason: Nausea/Vomiting Last Admin: 04/15/18 08:03 Dose: 4 mg Oxycodone HCl (Oxycodone Immediate Release Tab) 10 mg PO Q6H PRN PRN Reason: Pain, moderate (4-7) Last Admin: 04/14/18 19:25 Dose: 10 mg Senna/Docusate Sodium (Senokot S 50 Mg-8.6 Mg) 1 tab PO BID PRN PRN Reason: Constipation - Labs Labs: 04/15/18 06:12 04/14/18 16:00 PT 13.5 SECONDS (9.4-12.5) H 04/14/18 16:00 INR 1.18 04/14/18 16:00 APTT 42.7 Seconds (25.1-36.5) H 04/14/18 16:00 - Constitutional Appears: Chronically Ill - Head Exam Head Exam: NORMAL INSPECTION - Respiratory Exam Respiratory Exam: Decreased Breath Sounds - Cardiovascular Exam Cardiovascular Exam: +S1, +S2 - GI/Abdominal Exam GI & Abdominal Exam: Soft. absent: Tenderness Assessment and Plan - Assessment and Plan (Free Text) Plan: Assessment consider post-obstructive pneumonitis on the right hemoptysis probably related to lung cancer stage 4 lung cancer with liver metastases on palliative chemotherapy HTN dyslipidemia bilateral cataract surgery Plan continue Zosyn day 3 and will continue to monitor clinically - target 4-7 days of therapy; will follow up blood cx and sputum cx; PCT is 0.19 overall prognosis is poor
--- NOTE | 2018-04-17 12:58 | PN ---
DATE: 04/17/2018 PULMONARY PROGRESS NOTE REFERRING PHYSICIAN: Dion Zaragoza MD SUBJECTIVE: The patient is lying in bed. Reports feeling well today and still has cough. No headache, rhinitis, chest pain, abdominal pain, nausea, vomiting, diarrhea, leg pain or leg swelling reported. OBJECTIVE: GENERAL: No acute distress. VITAL SIGNS: Blood pressure 130/86, pulse 91, temperature 98.5 and oxygen saturation 96%. HEENT: Moist mucous membranes. NECK: Supple. No JVD. LUNGS: Scattered rhonchi bilaterally. CARDIOVASCULAR: S1 and S2. ABDOMEN: Soft and nontender. No distension. No organomegaly. EXTREMITIES: No bilateral lower extremity edema. NEUROLOGICAL: Awake, alert and verbal. Follows commands. MEDICATIONS: Reviewed. Xanax 1 mg at bedtime p.r.n., Brovana 15 mcg inhalation every 12 hours, Lipitor 10 mg at bedtime, Pulmicort 0.5 mg inhalation every 12 hours, doxycycline 100 mg every 12 hours, Lovenox 30 mg subcutaneously daily, Pepcid 20 mg in the morning, Robitussin with codeine 5 mL every 6 hours, Atrovent 0.5 mg inhalation 3 times a day p.r.n., Xopenex 0.63 mg inhalation 3 times a day, Cozaar 25 mg daily, Solu-Medrol 40 mg every 12 hours, cyclopentolate 2% ophthalmic eyedrops 3 times a day, Zofran 4 mg every 4 hours p.r.n., oxycodone 10 mg every 6 hours p.r.n., Zosyn 3.375 g every 8 hours, Senokot one tab twice a day p.r.n. LABORATORY DATA: WBC 4, RBC 2.87, hemoglobin 9.5, hematocrit 29.7 and platelets 166. Sodium 138, potassium 4.6, chloride 106, carbon dioxide 23, anion gap 13, BUN 21, creatinine 1, GFR 53, random glucose 96, calcium 9.8, phosphorous 3.6, magnesium 1.6, total bilirubin 0.3, AST 43, ALT 27, alkaline phosphatase 158, total protein 5.9, albumin 3.1, globulin 2.8, albumin and globulin ratio 1.1. 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 Continue bronchodilators, antibiotics, gastric prophylaxis, deep venous thrombosis prophylaxis. The patient had consult for radiation today. Oncology note appreciated. The patient discharged for course of radiation to help with endobronchial lesions. This patient was seen and examined with Dr. Burt. I discussed assessment and plan as described above. Thank you for this consult and we will follow with you. Chauncey Rose APN Maddy Burt MD
[2018-04-18] MEDS ORDERED: Magnesium Oxide 400 mg Tab UD PO ONE (00:14)
[2018-04-18] MEDS: guaiFENesin-Codeine 100-10mg/5ml Syrup (5 ml) UD PO SCH ×4 (00:36→17:10)
[2018-04-18] MEDS: Piperacillin/Tazobact 3.375 gm 100 ML IVPB SCH ×3 (05:51→21:35)
[2018-04-18 06:48] LABS: BASO # 0.01 K/mm3 (0.0-2.0); BASO % 0.2 % (0.0-3.0); GRAN # 2.37 (1.4-6.5); GRAN % 58.2 % (50.0-68.0); HEMOGLOBIN 9.4 g/dL (12.0-16.0); LYMPH % 25.6 % (22.0-35.0); MEAN CELL VOLUME 104.2 fl (80.0-105.0); MEAN CORPUSCULAR HEMOGLOBIN 33.1 pg (25.0-35.0); MEAN CORPUSCULAR HGB CONC 31.8 g/dl (31.0-37.0); MEAN PLATELET VOLUME 10.2 fl (7.0-11.0); MONO # 0.7 (0.1-0.6); RBC 2.84 10^6/uL (3.5-6.1); RED CELL DISTRIBUTION WIDTH 18.4 % (11.5-14.5); WHITE BLOOD COUNT 4.1 10^3/uL (4.5-11.0)
[2018-04-18 07:43] LABS: ALB/GLOB RATIO 1.2 (1.1-1.8); ALT/SGPT 25 U/L (7-56); AST/SGOT 41 U/L (14-36); BLOOD UREA NITROGEN 23 mg/dL (7-21); CALCIUM 9.7 mg/dL (8.4-10.5); GFR NON-AFRICAN AMERICAN 53
[2018-04-18] MEDS: Levalbuterol 0.63 MG/3 ML Inhal Soln UD IH SCH ×3 (08:31→20:41)
[2018-04-18] MEDS: Budesonide 0.5 mg/2 ml Inhal Susp UD IH SCH ×2 (08:31→20:41)
[2018-04-18] MEDS: Arformoterol 15 mcg/2 ml Inh Sol IH SCH ×2 (08:31→20:41)
[2018-04-18] MEDS: CYCLOPENTOLATE 2% OS SCH ×3 (09:27→17:10)
[2018-04-18] MEDS: Enoxaparin 30 mg Syringe SC SCH ×2 (09:27→11:53)
[2018-04-18] MEDS: MethylPREDNISolone 40 mg Vial IVP SCH (09:28)
--- NOTE | 2018-04-18 12:54 | PN ---
DATE: 04/18/2018 PULMONARY PROGRESS NOTE REFERRING PHYSICIAN: Dr. Zaragoza. SUBJECTIVE: The patient is lying in bed; family is at bedside. No acute distress. No overnight events reported. Reports minimal coughing this morning. No shortness of breath. No headache, rhinitis, chest pain, abdominal pain, nausea, vomiting, diarrhea, leg pain or leg swelling reported. OBJECTIVE: GENERAL: No acute distress. VITAL SIGNS: Blood pressure 141/76, pulse 83, temperature 98.1, and oxygen saturation 98% on room air. HEENT: Moist mucous membranes. NECK: Supple. No JVD. LUNGS: Scattered rhonchi bilaterally. CARDIOVASCULAR: S1 and S2 audible. ABDOMEN: Soft and nontender. No distention. No organomegaly. EXTREMITIES: No bilateral lower extremity edema. NEUROLOGIC: Awake, alert, and verbal. Follows commands. MEDICATIONS: Reviewed. Xanax 1 mg at bedtime p.r.n., Brovana 15 mcg every 12 hours, Lipitor 10 mg at bedtime, Pulmicort 0.5 mg every 12 hours, doxycycline 100 mg every 12 hours, Lovenox 30 mg daily, Pepcid 20 mg in the morning, Robitussin with codeine 5 mL every 6 hours, Atrovent 0.5 mg inhalation three times a day, Xopenex 0.63 mg inhalation three times a day, Cozaar 25 mg daily, Solu-Medrol 40 mg IV push every 12 hours, cyclopentolate 1 drop three times a day, Zofran 4 mg every 4 hours p.r.n., oxycodone 10 mg every 6 hours p.r.n., Zosyn 3.375 g every 8 hours, and Senokot one tab twice a day p.r.n. LABORATORY DATA: Reviewed. WBC 4.1, RBC 2.84, hemoglobin 9.4, hematocrit 29.6, and platelets 169. Sodium 139, potassium 4.4, chloride 107, carbon dioxide 22, anion gap 14, BUN 23, creatinine 1, GFR 53, POC glucose 81, random glucose 105, calcium 9.7, magnesium 1.6, total bilirubin 0.2, AST 41, ALT 26, alkaline phosphatase 162, total protein 5.6, albumin 3.0, globulin 2.6, and albumin-globulin ratio 1.2. 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 Continue bronchodilators, gastric prophylaxis, deep venous thrombosis prophylaxis, and antibiotic therapy. We will decrease Solu-Medrol to 20 mg daily. Radiation to start today. Oncology followup. This patient was seen and examined with Dr. Burt. Discussed assessment and plan as described above. Thank you for this consult. We will follow with you. Chauncey Rose APN Maddy Burt MD
--- NOTE | 2018-04-18 13:28 | CP.PCM.PN ---
Subjective - Date & Time of Evaluation Date of Evaluation: 04/18/18 Time of Evaluation: 10:50 - Subjective Subjective: No fevers, still with some cough but no hemoptysis, no abdominal pain, no nausea currently. Objective - Vital Signs/Intake and Output Vital Signs (last 24 hours): Temp Pulse Resp BP Pulse Ox 98.5 F 91 H 18 130/86 96 04/17/18 09:11 04/17/18 09:31 04/17/18 09:11 04/17/18 09:31 04/17/18 09:11 Intake and Output: 04/17/18 04/17/18 06:59 18:59 Intake Total 1260 Output Total 300 Balance 960 - Medications Medications: Current Medications Alprazolam (Xanax) 1 mg PO HS PRN; Protocol PRN Reason: Anxiety Stop: 04/21/18 17:37 Last Admin: 04/16/18 21:25 Dose: 1 mg Arformoterol Tartrate (Brovana) 15 mcg IH [id number] [facility] Last Admin: 04/17/18 07:41 Dose: Not Given Atorvastatin Calcium (Lipitor) 10 mg PO HS [facility] Last Admin: 04/16/18 21:25 Dose: 10 mg Budesonide (Pulmicort Respules) 0.5 mg IH [id number] [facility] Last Admin: 04/17/18 07:41 Dose: Not Given Doxycycline Hyclate (Doryx) 100 mg PO Q12 [facility]; Protocol Last Admin: 04/17/18 09:32 Dose: 100 mg Enoxaparin Sodium (Lovenox) 30 mg SC DAILY [facility]; Protocol Famotidine (Pepcid) 20 mg PO ACBD [facility] Last Admin: 04/17/18 09:33 Dose: 20 mg Guaifenesin/Codeine Phosphate (Robitussin W/Codeine) 5 ml PO Q6 [facility] Last Admin: 04/17/18 05:59 Dose: Not Given Piperacillin Sod/Tazobactam Sod (Zosyn 3.375 In Ns 100ml) 100 mls @ 25 mls/hr IVPB Q8 [facility]; Protocol Stop: 04/22/18 14:01 Last Admin: 04/17/18 06:17 Dose: 25 mls/hr Ipratropium [place] (Atrovent) 0.5 mg IH TIDRESP PRN PRN Reason: Shortness of Breath Levalbuterol HCl (Xopenex) 0.63 mg IH TIDRESP [facility] Last Admin: 04/17/18 07:41 Dose: Not Given Losartan Potassium (Cozaar) 25 mg PO DAILY [facility] Last Admin: 04/17/18 09:31 Dose: 25 mg Methylprednisolone (Solu-Medrol) 40 mg IVP Q12 [facility] Last Admin: 04/17/18 09:34 Dose: 40 mg Non-Formulary Medication (Cyclopentolate 2% Ophth [Cyclogyl 2% Ophth]) 1 drop OS TID [facility] Last Admin: 04/17/18 09:32 Dose: 1 drop Ondansetron HCl (Zofran Inj) 4 mg IVP Q4H PRN PRN Reason: Nausea/Vomiting Last Admin: 04/15/18 08:03 Dose: 4 mg Oxycodone HCl (Oxycodone Immediate Release Tab) 10 mg PO Q6H PRN PRN Reason: Pain, moderate (4-7) Last Admin: 04/16/18 21:25 Dose: 10 mg Senna/Docusate Sodium (Senokot S 50 Mg-8.6 Mg) 1 tab PO BID PRN PRN Reason: Constipation - Labs Labs: 04/17/18 08:00 04/17/18 08:00 PT 13.5 SECONDS (9.4-12.5) H 04/14/18 16:00 INR 1.18 04/14/18 16:00 APTT 42.7 Seconds (25.1-36.5) H 04/14/18 16:00 - Constitutional Appears: Chronically Ill - Head Exam Head Exam: NORMAL INSPECTION - Respiratory Exam Respiratory Exam: Decreased Breath Sounds - Cardiovascular Exam Cardiovascular Exam: +S1, +S2 - GI/Abdominal Exam GI & Abdominal Exam: Soft. absent: Tenderness Assessment and Plan - Assessment and Plan (Free Text) Plan: Assessment consider post-obstructive pneumonitis on the right hemoptysis probably related to lung cancer stage 4 lung cancer with liver metastases on palliative chemotherapy HTN dyslipidemia bilateral cataract surgery Plan continue Zosyn day 4 and will continue to monitor clinically - target 4-7 days of therapy; will follow up blood cx and sputum cx; PCT is 0.19 overall prognosis is poor
[2018-04-18] MEDS ORDERED: Magnesium Sulfate 2 gm/50 ml 2 GM/50 ML BAG IVPB ONE (17:27)
--- NOTE | 2018-04-18 17:33 | CP.PCM.PN ---
<Olena Tipton - Last Filed: 04/18/18 17:23> Subjective - Date & Time of Evaluation Date of Evaluation: 04/18/18 Time of Evaluation: 07:30 - Subjective Subjective: Pgy3 Medicine progress note for Dr. Zaragoza Patient seen and examined at bedside. As per nursing patient had no acute events overnight. Patient resting comfortably this AM and was asleep. Upon awakening patient denied fever, chest pain, SOB, hemoptysis, and abd pain. Complete ROS unobtainable due to patient's underlying dementia. Objective - Vital Signs/Intake and Output Vital Signs (last 24 hours): Temp Pulse Resp BP Pulse Ox 98.1 F 83 19 141/76 98 04/18/18 07:55 04/18/18 07:55 04/18/18 07:55 04/18/18 07:55 04/18/18 07:55 Intake and Output: 04/18/18 04/18/18 06:59 18:59 Intake Total 120 Balance 120 - Medications Medications: Current Medications Alprazolam (Xanax) 1 mg PO HS PRN; Protocol PRN Reason: Anxiety Stop: 04/21/18 17:37 Last Admin: 04/17/18 21:18 Dose: 1 mg Arformoterol Tartrate (Brovana) 15 mcg IH [id number] [facility] Last Admin: 04/18/18 08:31 Dose: Not Given Atorvastatin Calcium (Lipitor) 10 mg PO HS [facility] Last Admin: 04/17/18 21:19 Dose: 10 mg Budesonide (Pulmicort Respules) 0.5 mg IH [id number] [facility] Last Admin: 04/18/18 08:31 Dose: Not Given Doxycycline Hyclate (Doryx) 100 mg PO Q12 [facility]; Protocol Last Admin: 04/18/18 09:27 Dose: 100 mg Enoxaparin Sodium (Lovenox) 30 mg SC DAILY [facility]; Protocol Last Admin: 04/18/18 11:53 Dose: Not Given Famotidine (Pepcid) 20 mg PO ACBD [facility] Last Admin: 04/18/18 17:10 Dose: 20 mg Guaifenesin/Codeine Phosphate (Robitussin W/Codeine) 5 ml PO Q6 [facility] Last Admin: 04/18/18 17:10 Dose: 5 ml Piperacillin Sod/Tazobactam Sod (Zosyn 3.375 In Ns 100ml) 100 mls @ 25 mls/hr IVPB Q8 [facility]; Protocol Stop: 04/22/18 14:01 Last Admin: 04/18/18 13:52 Dose: 25 mls/hr Ipratropium [place] (Atrovent) 0.5 mg IH TIDRESP PRN PRN Reason: Shortness of Breath Levalbuterol HCl (Xopenex) 0.63 mg IH TIDRESP [facility] Last Admin: 04/18/18 13:54 Dose: 0.63 mg Losartan Potassium (Cozaar) 25 mg PO DAILY [facility] Last Admin: 04/18/18 09:27 Dose: 25 mg Methylprednisolone (Solu-Medrol) 20 mg IVP DAILY [facility] Non-Formulary Medication (Cyclopentolate 2% Ophth [Cyclogyl 2% Ophth]) 1 drop OS TID [facility] Last Admin: 04/18/18 17:10 Dose: 1 drop Ondansetron HCl (Zofran Inj) 4 mg IVP Q4H PRN PRN Reason: Nausea/Vomiting Last Admin: 04/17/18 13:18 Dose: 4 mg Oxycodone HCl (Oxycodone Immediate Release Tab) 10 mg PO Q6H PRN PRN Reason: Pain, moderate (4-7) Last Admin: 04/16/18 21:25 Dose: 10 mg Senna/Docusate Sodium (Senokot S 50 Mg-8.6 Mg) 1 tab PO BID PRN PRN Reason: Constipation - Labs Labs: 04/18/18 06:30 04/18/18 06:30 PT 13.5 SECONDS (9.4-12.5) H 04/14/18 16:00 INR 1.18 04/14/18 16:00 APTT 42.7 Seconds (25.1-36.5) H 04/14/18 16:00 - Additional Findings Additional findings: - Constitutional Appears: No Acute Distress, Chronically Ill - Head Exam Head Exam: ATRAUMATIC, NORMAL INSPECTION, NORMOCEPHALIC - Eye Exam Eye Exam: Normal appearance. absent: Conjunctival injection, Scleral icterus - ENT Exam ENT Exam: Mucous Membranes Moist - Neck Exam Neck Exam: Full ROM, Normal Inspection - Respiratory Exam Respiratory Exam: NORMAL BREATHING PATTERN. absent: Accessory Muscle Use, Decreased Breath Sounds, Rales, Rhonchi, Wheezes Additional comments: R chest wall port noted - Cardiovascular Exam Cardiovascular Exam: Tachycardia, +S1, +S2 - GI/Abdominal Exam GI & Abdominal Exam: Soft, Normal Bowel Sounds. absent: Distended, Firm, Guarding, Rigid, Tenderness - Extremities Exam Extremities Exam: Normal Capillary Refill, Normal Inspection. absent: Pedal Edema, Tenderness - Back Exam Back Exam: NORMAL INSPECTION. absent: rash noted - Neurological Exam Neurological Exam: Alert, Awake - Psychiatric Exam Psychiatric exam: Normal Affect, Normal Mood - Skin Skin Exam: Dry, Intact, Normal Color, Warm Assessment and Plan - Assessment and Plan (Free Text) Assessment: - Hemoptysis likely secondary to Stage IV small cell lung ca - R lung post obstructive pneumonitis - COPD - Stage IV small cell lung cancer with mets to bone and liver on palliative chemo - HTN - HLD - anxiety - pain management - bilateral cataract surgery - dementia Plan: Patient's blood work, vitals, and imaging reviewed in chart. Patient did not receive radiation the day before as planned as she refused. She is due for radiation today and is scheduled for 10 cycles total. Patient had no additional episodes of hemoptysis overnight. Patient continued on IV solumedrol and bronchodilator therapy as per pulm reccs for chronic COPD. Continue abx therapy Doxycycline and Zosyn for post obstructive pneumonitis as per ID reccs for 4-7 days. Patient continued on home Cozaar to maintain normotension and home lipitor for dyslipidemia. Continue xanax at night for anxiety and re-direction as needed. Will gave patient additional 0.25mg xanax prior to going down for radiation if needed for anxiety. Patient's pain is being managed at this time with oxycodone 10q6 and patient has bowel regimen in place. GI and DVT ppx in place. Will continue to monitor patient closely. Patient is not a candidate for TCU due to insurance. PT recommends [facility]. In light of patient's need for radiation, placement in [facility] will be challenge. As per social work, patient wants to be discharged home and does not want to go to [facility]. Will continue to monitor and manage patient. Discussed with Dr. Nik Tipton PGY3 <Dion Zaragoza - Last Filed: 04/18/18 19:40> Objective - Vital Signs/Intake and Output Vital Signs (last 24 hours): Temp Pulse Resp BP Pulse Ox 98 F 102 H 20 120/61 98 04/18/18 18:00 04/18/18 18:00 04/18/18 18:00 04/18/18 18:00 04/18/18 18:00 Intake and Output: 04/18/18 04/19/18 18:59 06:59 Intake Total 480 Output Total 500 Balance -20 - Medications Medications: Current Medications Alprazolam (Xanax) 1 mg PO HS PRN; Protocol PRN Reason: Anxiety Stop: 04/21/18 17:37 Last Admin: 04/17/18 21:18 Dose: 1 mg Arformoterol Tartrate (Brovana) 15 mcg IH [id number] [facility] Last Admin: 04/18/18 08:31 Dose: Not Given Atorvastatin Calcium (Lipitor) 10 mg PO HS [facility] Last Admin: 04/17/18 21:19 Dose: 10 mg Budesonide (Pulmicort Respules) 0.5 mg IH [id number] [facility] Last Admin: 04/18/18 08:31 Dose: Not Given Doxycycline Hyclate (Doryx) 100 mg PO Q12 [facility]; Protocol Last Admin: 04/18/18 09:27 Dose: 100 mg Enoxaparin Sodium (Lovenox) 30 mg SC DAILY [facility]; Protocol Last Admin: 04/18/18 11:53 Dose: Not Given Famotidine (Pepcid) 20 mg PO ACBD [facility] Last Admin: 04/18/18 17:10 Dose: 20 mg Guaifenesin/Codeine Phosphate (Robitussin W/Codeine) 5 ml PO Q6 [facility] Last Admin: 04/18/18 17:10 Dose: 5 ml Piperacillin Sod/Tazobactam Sod (Zosyn 3.375 In Ns 100ml) 100 mls @ 25 mls/hr IVPB Q8 [facility]; Protocol Stop: 04/22/18 14:01 Last Admin: 04/18/18 13:52 Dose: 25 mls/hr Ipratropium [place] (Atrovent) 0.5 mg IH TIDRESP PRN PRN Reason: Shortness of Breath Levalbuterol HCl (Xopenex) 0.63 mg IH TIDRESP [facility] Last Admin: 04/18/18 13:54 Dose: 0.63 mg Losartan Potassium (Cozaar) 25 mg PO DAILY [facility] Last Admin: 04/18/18 09:27 Dose: 25 mg Methylprednisolone (Solu-Medrol) 20 mg IVP DAILY [facility] Non-Formulary Medication (Cyclopentolate 2% Ophth [Cyclogyl 2% Ophth]) 1 drop OS TID [facility] Last Admin: 04/18/18 17:10 Dose: 1 drop Ondansetron HCl (Zofran Inj) 4 mg IVP Q4H PRN PRN Reason: Nausea/Vomiting Last Admin: 04/17/18 13:18 Dose: 4 mg Oxycodone HCl (Oxycodone Immediate Release Tab) 10 mg PO Q6H PRN PRN Reason: Pain, severe (8-10) Senna/Docusate Sodium (Senokot S 50 Mg-8.6 Mg) 1 tab PO BID PRN PRN Reason: Constipation - Labs Labs: 04/18/18 06:30 04/18/18 06:30 PT 13.5 SECONDS (9.4-12.5) H 04/14/18 16:00 INR 1.18 04/14/18 16:00 APTT 42.7 Seconds (25.1-36.5) H 04/14/18 16:00 Assessment and Plan - Assessment and Plan (Free Text) Plan: Pt seen and examined by me. I have reviewed the note of the medical coding instructor and I agree with it. I have discussed the assessment and plan with the resident. I have reviewed the medications and the last labs. Pt with Lung Ca and has obstructive pneumonia. She is on IV Abx and will be getting RT for palliation. She initially refused but is agreeable. She was not accepted to the TCU. She is on Xanax for anxiety. Pt prefers to go home. She is on Duoneb and Solumedrol treatments. She is on Lipitor for her dyslipidemia. Continue Cozaar for HTN. Oxycodone for pain.
[2018-04-18 19:20] VITALS: RESP 20
[2018-04-19] MEDS: guaiFENesin-Codeine 100-10mg/5ml Syrup (5 ml) UD PO SCH ×4 (05:42→18:16)
[2018-04-19] MEDS: Piperacillin/Tazobact 3.375 gm 100 ML IVPB SCH ×2 (05:43→14:42)
[2018-04-19 07:11] LABS: BASO # 0.02 K/mm3 (0.0-2.0); BASO % 0.3 % (0.0-3.0); EOS % 0.1 % (1.5-5.0); GRAN # 2.81 (1.4-6.5); GRAN % 41.2 % (50.0-68.0); HEMOGLOBIN 9.4 g/dL (12.0-16.0); LYMPH # 2.1 (1.2-3.4); LYMPH % 30.8 % (22.0-35.0); MEAN CELL VOLUME 103.4 fl (80.0-105.0); MEAN CORPUSCULAR HEMOGLOBIN 32.3 pg (25.0-35.0); MEAN CORPUSCULAR HGB CONC 31.2 g/dl (31.0-37.0); MEAN PLATELET VOLUME 9.9 fl (7.0-11.0); MONO # 1.9 (0.1-0.6); MONO % 27.6 % (1.0-6.0); PLATELET COUNT 177 10^3/uL (120.0-450.0); RBC 2.91 10^6/uL (3.5-6.1); RED CELL DISTRIBUTION WIDTH 18.6 % (11.5-14.5); WHITE BLOOD COUNT 6.8 10^3/uL (4.5-11.0)
[2018-04-19 07:15] LABS: ALB/GLOB RATIO 1.1 (1.1-1.8); ALBUMIN 2.9 g/dL (3.0-4.8); ALT/SGPT 29 U/L (7-56); AST/SGOT 48 U/L (14-36); BLOOD UREA NITROGEN 25 mg/dL (7-21); CALCIUM 9.3 mg/dL (8.4-10.5); GFR NON-AFRICAN AMERICAN > 60
[2018-04-19] MEDS: Budesonide 0.5 mg/2 ml Inhal Susp UD IH SCH ×2 (07:55→19:54)
[2018-04-19] MEDS: Arformoterol 15 mcg/2 ml Inh Sol IH SCH ×2 (07:55→19:54)
[2018-04-19] MEDS: Levalbuterol 0.63 MG/3 ML Inhal Soln UD IH SCH ×3 (07:55→19:54)
[2018-04-19 08:41] LABS: LYMPHOCYTE 29 % (22.0-35.0); MONOCYTE 29 % (1.0-6.0); NEUTROPHIL 42 % (50.0-70.0)
[2018-04-19] MEDS: MethylPREDNISolone 40 mg Vial IVP SCH (11:02)
[2018-04-19] MEDS: CYCLOPENTOLATE 2% OS SCH ×3 (11:02→18:16)
[2018-04-19] MEDS: Enoxaparin 30 mg Syringe SC SCH (11:59)
--- NOTE | 2018-04-19 12:55 | CP.PCM.PN ---
<Chandana Tiptonima - Last Filed: 04/19/18 13:28> Subjective - Date & Time of Evaluation Date of Evaluation: 04/19/18 Time of Evaluation: 07:30 - Subjective Subjective: Pgy3 Medicine progress note for Dr. Zaragoza Patient seen and examined at bedside. Patient received first dose radiation the day prior and is due for second round today. Overnight nursing reported she slept all night but refused Lovenox. She was resting comfortably this AM and denied acute complaints of fever, headache, dizziness, chest pain, SOB, abd pain, nausea, vomiting, bowel/bladder complaints, pain/swelling in her legs bilaterally. Objective - Vital Signs/Intake and Output Vital Signs (last 24 hours): Temp Pulse Resp BP Pulse Ox 98.2 F 72 20 143/67 97 04/19/18 08:16 04/19/18 11:01 04/19/18 08:16 04/19/18 11:01 04/19/18 08:16 Intake and Output: 04/19/18 04/19/18 06:59 18:59 Intake Total 720 Output Total 500 Balance 220 - Medications Medications: Current Medications Alprazolam (Xanax) 1 mg PO HS PRN; Protocol PRN Reason: Anxiety Stop: 04/21/18 17:37 Last Admin: 04/18/18 21:35 Dose: 1 mg Arformoterol Tartrate (Brovana) 15 mcg IH [id number] [facility] Last Admin: 04/19/18 07:55 Dose: 15 mcg Atorvastatin Calcium (Lipitor) 10 mg PO HS [facility] Last Admin: 04/17/18 21:19 Dose: 10 mg Budesonide (Pulmicort Respules) 0.5 mg IH [id number] [facility] Last Admin: 04/19/18 07:55 Dose: 0.5 mg Doxycycline Hyclate (Doryx) 100 mg PO Q12 [facility]; Protocol Last Admin: 04/19/18 11:57 Dose: 100 mg Enoxaparin Sodium (Lovenox) 30 mg SC DAILY [facility]; Protocol Last Admin: 04/19/18 11:59 Dose: 30 mg Famotidine (Pepcid) 20 mg PO ACBD [facility] Last Admin: 04/19/18 11:01 Dose: 20 mg Guaifenesin/Codeine Phosphate (Robitussin W/Codeine) 5 ml PO Q6 [facility] Last Admin: 04/19/18 11:02 Dose: 5 ml Piperacillin Sod/Tazobactam Sod (Zosyn 3.375 In Ns 100ml) 100 mls @ 25 mls/hr IVPB Q8 [facility]; Protocol Stop: 04/22/18 14:01 Last Admin: 04/19/18 05:43 Dose: 25 mls/hr Ipratropium [place] (Atrovent) 0.5 mg IH TIDRESP PRN PRN Reason: Shortness of Breath Levalbuterol HCl (Xopenex) 0.63 mg IH TIDRESP [facility] Last Admin: 04/19/18 07:55 Dose: 0.63 mg Losartan Potassium (Cozaar) 25 mg PO DAILY [facility] Last Admin: 04/19/18 11:01 Dose: 25 mg Methylprednisolone (Solu-Medrol) 20 mg IVP DAILY [facility] Last Admin: 04/19/18 11:02 Dose: 20 mg Non-Formulary Medication (Cyclopentolate 2% Ophth [Cyclogyl 2% Ophth]) 1 drop OS TID [facility] Last Admin: 04/19/18 11:02 Dose: 1 drop Ondansetron HCl (Zofran Inj) 4 mg IVP Q4H PRN PRN Reason: Nausea/Vomiting Last Admin: 04/17/18 13:18 Dose: 4 mg Oxycodone HCl (Oxycodone Immediate Release Tab) 10 mg PO Q6H PRN PRN Reason: Pain, severe (8-10) Senna/Docusate Sodium (Senokot S 50 Mg-8.6 Mg) 1 tab PO BID PRN PRN Reason: Constipation - Labs Labs: 04/19/18 06:00 04/19/18 06:00 PT 13.5 SECONDS (9.4-12.5) H 04/14/18 16:00 INR 1.18 04/14/18 16:00 APTT 42.7 Seconds (25.1-36.5) H 04/14/18 16:00 - Additional Findings Additional findings: - Constitutional Appears: No Acute Distress, Chronically Ill - Head Exam Head Exam: ATRAUMATIC, NORMAL INSPECTION, NORMOCEPHALIC - Eye Exam Eye Exam: Normal appearance. absent: Conjunctival injection, Scleral icterus - ENT Exam ENT Exam: Mucous Membranes Moist - Neck Exam Neck Exam: Full ROM, Normal Inspection - Respiratory Exam Respiratory Exam: NORMAL BREATHING PATTERN. absent: Accessory Muscle Use, Decreased Breath Sounds, Rales, Rhonchi, Wheezes Additional comments: R chest wall port noted - Cardiovascular Exam Cardiovascular Exam: Tachycardia, +S1, +S2 - GI/Abdominal Exam GI & Abdominal Exam: Soft, Normal Bowel Sounds. absent: Distended, Firm, Guarding, Rigid, Tenderness - Extremities Exam Extremities Exam: Normal Capillary Refill, Normal Inspection. absent: Pedal Edema, Tenderness - Back Exam Back Exam: NORMAL INSPECTION. 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 Patient has 2 of 10 cycles of radiation today. Patient continued on IV solumedrol and bronchodilator therapy as per pulm reccs for chronic COPD. Continue abx therapy Doxycycline and Zosyn for post obstructive pneumonitis as per ID reccs. Patient continued on home Cozaar to maintain normotension and home lipitor for dyslipidemia. Continue xanax for anxiety and re-direction as needed at night. Patient's pain is managed on oxycodone 10q6. Bowel regimen is in place. GI and DVT ppx in place. Patient not a candidate for TCU due to insurance. PT recommended DARYA however patient refusing DARYA and wants to be discharged home. Family stated they are unable to care for her at home while she needs radiation. Will continue to manage patient in house at this time. Discussed with Dr. Nik Tipton PGY3 <Dion Zaragoza - Last Filed: 04/19/18 18:42> Objective - Vital Signs/Intake and Output Vital Signs (last 24 hours): Temp Pulse Resp BP Pulse Ox 98.7 F 86 20 123/59 L 93 L 04/19/18 17:59 04/19/18 17:59 04/19/18 17:59 04/19/18 17:59 04/19/18 17:59 Intake and Output: 04/19/18 04/19/18 06:59 18:59 Intake Total 720 Output Total 500 Balance 220 - Medications Medications: Current Medications Alprazolam (Xanax) 1 mg PO HS PRN; Protocol PRN Reason: Anxiety Stop: 04/21/18 17:37 Last Admin: 04/18/18 21:35 Dose: 1 mg Arformoterol Tartrate (Brovana) 15 mcg IH [id number] [facility] Last Admin: 04/19/18 07:55 Dose: 15 mcg Atorvastatin Calcium (Lipitor) 10 mg PO HS [facility] Last Admin: 04/17/18 21:19 Dose: 10 mg Budesonide (Pulmicort Respules) 0.5 mg IH [id number] [facility] Last Admin: 04/19/18 07:55 Dose: 0.5 mg Doxycycline Hyclate (Doryx) 100 mg PO Q12 [facility]; Protocol Last Admin: 04/19/18 11:57 Dose: 100 mg Enoxaparin Sodium (Lovenox) 30 mg SC DAILY [facility]; Protocol Last Admin: 04/19/18 11:59 Dose: 30 mg Famotidine (Pepcid) 20 mg PO ACBD [facility] Last Admin: 04/19/18 18:16 Dose: 20 mg Guaifenesin/Codeine Phosphate (Robitussin W/Codeine) 5 ml PO Q6 [facility] Last Admin: 04/19/18 18:16 Dose: 5 ml Piperacillin Sod/Tazobactam Sod (Zosyn 3.375 In Ns 100ml) 100 mls @ 25 mls/hr IVPB Q8 [facility]; Protocol Stop: 04/22/18 14:01 Last Admin: 04/19/18 14:42 Dose: 25 mls/hr Ipratropium [place] (Atrovent) 0.5 mg IH TIDRESP PRN PRN Reason: Shortness of Breath Levalbuterol HCl (Xopenex) 0.63 mg IH TIDRESP [facility] Last Admin: 04/19/18 13:25 Dose: 0.63 mg Losartan Potassium (Cozaar) 25 mg PO DAILY [facility] Last Admin: 04/19/18 11:01 Dose: 25 mg Methylprednisolone (Solu-Medrol) 20 mg IVP DAILY [facility] Last Admin: 04/19/18 11:02 Dose: 20 mg Non-Formulary Medication (Cyclopentolate 2% Ophth [Cyclogyl 2% Ophth]) 1 drop OS TID [facility] Last Admin: 04/19/18 18:16 Dose: 1 drop Ondansetron HCl (Zofran Inj) 4 mg IVP Q4H PRN PRN Reason: Nausea/Vomiting Last Admin: 04/17/18 13:18 Dose: 4 mg Oxycodone HCl (Oxycodone Immediate Release Tab) 10 mg PO Q6H PRN PRN Reason: Pain, severe (8-10) Senna/Docusate Sodium (Senokot S 50 Mg-8.6 Mg) 1 tab PO BID PRN PRN Reason: Constipation - Labs Labs: 04/19/18 06:00 04/19/18 06:00 PT 13.5 SECONDS (9.4-12.5) H 04/14/18 16:00 INR 1.18 04/14/18 16:00 APTT 42.7 Seconds (25.1-36.5) H 04/14/18 16:00 Assessment and Plan - Assessment and Plan (Free Text) Plan: Pt seen and examined by me. I have reviewed the note of the medical specialist and I agree with it. I have discussed the assessment and plan with the resident. I have reviewed the medications and the last labs. Pt with hemoptysis that has improved. She is on radiation for her lung cancer. Her anxiety is controlled with xanax. She prefers to go home but it is unsafe for her. She is on Doxycycline and Zosyn for Abx for her postobstructive pneumonia. HTN is controlled with Cozaar. She is on Lipitor for dyslipidemia.
--- NOTE | 2018-04-19 14:19 | PN ---
DATE: 04/19/2018 PULMONARY PROGRESS NOTE REFERRING PHYSICIAN: Dion Zaragoza MD. SUBJECTIVE: The patient is sitting up in bed; daughter is at bedside. No acute distress. No overnight events reported. The patient reports that she does have periods of coughing and shortness of breath, but reports feeling better. No headache, rhinitis, chest pain, abdominal pain, nausea, vomiting, diarrhea, leg pain or leg swelling reported. PHYSICAL EXAMINATION: GENERAL: No acute distress. VITAL SIGNS: Blood pressure 143/67, pulse 72, temperature 98.2, oxygen saturation 97% on room air. HEENT: Moist mucous membranes. NECK: Supple. No JVD. LUNGS: Few scattered rhonchi bilaterally CARDIOVASCULAR: S1 and S2 audible. ABDOMEN: Soft, nontender. No distention. No organomegaly. EXTREMITIES: No bilateral lower extremity edema. NEUROLOGIC: Awake, alert and verbal. Follows commands. MEDICATIONS: Reviewed. Xanax 1 mg at bedtime p.r.n., Brovana 15 mcg every 12 hours, Lipitor 10 mg at bedtime, Pulmicort 0.5 mg every 12 hours, doxycycline 100 mg every 12 hours, Lovenox 30 mg daily, Pepcid 20 mg in the morning, Robitussin with codeine 5 mL every 6 hours, Atrovent 0.5 mg inhalation three times a day, p.r.n. Xopenex 0.63 mg inhalation three times a day, Cozaar 25 mg daily, Solu-Medrol 20 mg IV push daily, cyclopentolate ophthalmic eyedrops three times a day, Zofran 4 mg every 4 hours p.r.n., oxycodone 10 mg every 6 hours p.r.n., Zosyn 3.375 g every 8 hours, and Senokot one tablet twice a day p.r.n. LABORATORY DATA: Reviewed. WBC 6.8, RBC 2.91, hemoglobin 9.4, hematocrit 30.1, and platelets 177. Sodium 137, potassium 4.2, chloride 107, carbon dioxide 23, anion gap 11, BUN 25, creatinine 0.9, GFR greater than 60. POC glucose 63, random glucose is 67, calcium 9.3, phosphorus 2.6, magnesium 2.3, total bilirubin 0.2. AST 48, ALT 29, alkaline phosphatase 172, total protein 5.4, albumin 2.9, globulin 2.6, and albumin-globulin ratio 1.1. 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 Continue inhaled bronchodilators. gastric prophylaxis, deep venous thrombosis prophylaxis, and antibiotic therapy. We will continue the patient on Solu-Medrol 20 mg daily. The patient is currently undergoing radiation therapy. We do not want to suppress patient's immune system any further by increasing steroids at this time. We will continue to monitor the patient's symptoms and adjust as needed. Oncology followup. This patient was seen and examined with Dr. Burt. Discussed assessment and plan as described above. Thank you for this consult. We will follow with you. Chauncey Rose APN Maddy Burt MD
--- NOTE | 2018-04-19 16:16 | CP.PCM.PN ---
Subjective - Date & Time of Evaluation Date of Evaluation: 04/19/18 Time of Evaluation: 09:20 - Subjective Subjective: Cough is better, no fevers, no more hemoptysis, not in distress but feels tired. Objective - Vital Signs/Intake and Output Vital Signs (last 24 hours): Temp Pulse Resp BP Pulse Ox 98.1 F 83 19 141/76 98 04/18/18 07:55 04/18/18 07:55 04/18/18 07:55 04/18/18 07:55 04/18/18 07:55 Intake and Output: 04/18/18 04/18/18 06:59 18:59 Intake Total 120 Balance 120 - Medications Medications: Current Medications Alprazolam (Xanax) 1 mg PO HS PRN; Protocol PRN Reason: Anxiety Stop: 04/21/18 17:37 Last Admin: 04/17/18 21:18 Dose: 1 mg Arformoterol Tartrate (Brovana) 15 mcg IH [id number] [facility] Last Admin: 04/18/18 08:31 Dose: Not Given Atorvastatin Calcium (Lipitor) 10 mg PO HS [facility] Last Admin: 04/17/18 21:19 Dose: 10 mg Budesonide (Pulmicort Respules) 0.5 mg IH [id number] [facility] Last Admin: 04/18/18 08:31 Dose: Not Given Doxycycline Hyclate (Doryx) 100 mg PO Q12 [facility]; Protocol Last Admin: 04/18/18 09:27 Dose: 100 mg Enoxaparin Sodium (Lovenox) 30 mg SC DAILY [facility]; Protocol Last Admin: 04/18/18 11:53 Dose: Not Given Famotidine (Pepcid) 20 mg PO ACBD [facility] Last Admin: 04/18/18 09:27 Dose: 20 mg Guaifenesin/Codeine Phosphate (Robitussin W/Codeine) 5 ml PO Q6 [facility] Last Admin: 04/18/18 11:16 Dose: Not Given Piperacillin Sod/Tazobactam Sod (Zosyn 3.375 In Ns 100ml) 100 mls @ 25 mls/hr IVPB Q8 [facility]; Protocol Stop: 04/22/18 14:01 Last Admin: 04/18/18 05:51 Dose: 25 mls/hr Ipratropium [place] (Atrovent) 0.5 mg IH TIDRESP PRN PRN Reason: Shortness of Breath Levalbuterol HCl (Xopenex) 0.63 mg IH TIDRESP [facility] Last Admin: 04/18/18 08:31 Dose: Not Given Losartan Potassium (Cozaar) 25 mg PO DAILY [facility] Last Admin: 04/18/18 09:27 Dose: 25 mg Methylprednisolone (Solu-Medrol) 20 mg IVP DAILY [facility] Non-Formulary Medication (Cyclopentolate 2% Ophth [Cyclogyl 2% Ophth]) 1 drop OS TID [facility] Last Admin: 04/18/18 09:27 Dose: 1 drop Ondansetron HCl (Zofran Inj) 4 mg IVP Q4H PRN PRN Reason: Nausea/Vomiting Last Admin: 04/17/18 13:18 Dose: 4 mg Oxycodone HCl (Oxycodone Immediate Release Tab) 10 mg PO Q6H PRN PRN Reason: Pain, moderate (4-7) Last Admin: 04/16/18 21:25 Dose: 10 mg Senna/Docusate Sodium (Senokot S 50 Mg-8.6 Mg) 1 tab PO BID PRN PRN Reason: Constipation - Labs Labs: 04/18/18 06:30 04/18/18 06:30 PT 13.5 SECONDS (9.4-12.5) H 04/14/18 16:00 INR 1.18 04/14/18 16:00 APTT 42.7 Seconds (25.1-36.5) H 04/14/18 16:00 - Constitutional Appears: Chronically Ill - Head Exam Head Exam: NORMAL INSPECTION - Respiratory Exam Respiratory Exam: Decreased Breath Sounds - Cardiovascular Exam Cardiovascular Exam: +S1, +S2 - GI/Abdominal Exam GI & Abdominal Exam: Soft. absent: Tenderness Assessment and Plan - Assessment and Plan (Free Text) Plan: Assessment consider post-obstructive pneumonitis on the right hemoptysis probably related to lung cancer stage 4 lung cancer with liver metastases on palliative chemotherapy HTN dyslipidemia bilateral cataract surgery Plan continue Zosyn day 5 and Doxycycline and will continue to monitor clinically - target 4-7 days of therapy; PCT is 0.19 overall prognosis is poor discussed with Dr. Hay
[2018-04-19] MEDS: oxyCODONE 10 mg Immediate Release Tab PO PRN (21:05)
--- NOTE | 2018-04-19 23:00 | CP.PCM.PN ---
Subjective - Date & Time of Evaluation Date of Evaluation: 04/18/18 Time of Evaluation: 09:00 - Subjective Subjective: comfortable in bed. No distress. hemoptysis resolved. Shortness of breath improved. Objective - Vital Signs/Intake and Output Vital Signs (last 24 hours): Temp Pulse Resp BP Pulse Ox 98.7 F 86 20 123/59 L 93 L 04/19/18 17:59 04/19/18 17:59 04/19/18 17:59 04/19/18 17:59 04/19/18 17:59 - Medications Medications: Current Medications Alprazolam (Xanax) 1 mg PO HS PRN; Protocol PRN Reason: Anxiety Stop: 04/21/18 17:37 Last Admin: 04/19/18 21:06 Dose: 1 mg Arformoterol Tartrate (Brovana) 15 mcg IH [id number] [facility] Last Admin: 04/19/18 19:54 Dose: 15 mcg Atorvastatin Calcium (Lipitor) 10 mg PO HS [facility] Last Admin: 04/19/18 21:04 Dose: 10 mg Budesonide (Pulmicort Respules) 0.5 mg IH [id number] [facility] Last Admin: 04/19/18 19:54 Dose: 0.5 mg Doxycycline Hyclate (Doryx) 100 mg PO Q12 [facility]; Protocol Last Admin: 04/19/18 21:03 Dose: 100 mg Enoxaparin Sodium (Lovenox) 30 mg SC DAILY [facility]; Protocol Last Admin: 04/19/18 11:59 Dose: 30 mg Famotidine (Pepcid) 20 mg PO ACBD [facility] Last Admin: 04/19/18 18:16 Dose: 20 mg Guaifenesin/Codeine Phosphate (Robitussin W/Codeine) 5 ml PO Q6 [facility] Last Admin: 04/19/18 18:16 Dose: 5 ml Piperacillin Sod/Tazobactam Sod (Zosyn 3.375 In Ns 100ml) 100 mls @ 25 mls/hr IVPB Q8 [facility]; Protocol Stop: 04/22/18 14:01 Last Admin: 04/19/18 14:42 Dose: 25 mls/hr Ipratropium [place] (Atrovent) 0.5 mg IH TIDRESP PRN PRN Reason: Shortness of Breath Levalbuterol HCl (Xopenex) 0.63 mg IH TIDRESP [facility] Last Admin: 04/19/18 19:54 Dose: 0.63 mg Losartan Potassium (Cozaar) 25 mg PO DAILY [facility] Last Admin: 04/19/18 11:01 Dose: 25 mg Methylprednisolone (Solu-Medrol) 20 mg IVP DAILY [facility] Last Admin: 04/19/18 11:02 Dose: 20 mg Non-Formulary Medication (Cyclopentolate 2% Ophth [Cyclogyl 2% Ophth]) 1 drop OS TID [facility] Last Admin: 04/19/18 18:16 Dose: 1 drop Ondansetron HCl (Zofran Inj) 4 mg IVP Q4H PRN PRN Reason: Nausea/Vomiting Last Admin: 04/17/18 13:18 Dose: 4 mg Oxycodone HCl (Oxycodone Immediate Release Tab) 10 mg PO Q6H PRN PRN Reason: Pain, severe (8-10) Last Admin: 04/19/18 21:05 Dose: 10 mg Senna/Docusate Sodium (Senokot S 50 Mg-8.6 Mg) 1 tab PO BID PRN PRN Reason: Constipation - Labs Labs: 04/19/18 06:00 04/19/18 06:00 PT 13.5 SECONDS (9.4-12.5) H 04/14/18 16:00 INR 1.18 04/14/18 16:00 APTT 42.7 Seconds (25.1-36.5) H 04/14/18 16:00 - Constitutional Appears: Chronically Ill - Head Exam Head Exam: ATRAUMATIC, NORMAL INSPECTION, NORMOCEPHALIC - Eye Exam Eye Exam: Normal appearance - ENT Exam ENT Exam: Mucous Membranes Moist, Normal Exam - Neck Exam Neck Exam: Normal Inspection - Respiratory Exam Respiratory Exam: Clear to Ausculation Bilateral, NORMAL BREATHING PATTERN - Cardiovascular Exam Cardiovascular Exam: REGULAR RHYTHM, +S1, +S2 - GI/Abdominal Exam GI & Abdominal Exam: Soft, Normal Bowel Sounds - Extremities Exam Extremities Exam: Normal Inspection - Back Exam Back Exam: NORMAL INSPECTION - Neurological Exam Neurological Exam: Alert, Awake, Normal Gait, Oriented x3 - Skin Skin Exam: Warm Assessment and Plan - Assessment and Plan (Free Text) Assessment: 1. Stage IV lung cancer, small cell. On single agent Abraxane, second line chemo. tolerating well. Prior received 4 cycles of Carbo/Etoposide. She had trauma to eye and could not get chemo for more than a month. discussed with for attenuated radiation for 2 weeks for endobronchial lesion . It will help with hemoptyis also. Will resume chemo after radiation. 2. On IV antibiotics for post-obstructive PNA as per ID. 3. Continue DVT prophylaxis. 4. Continue to wean steroids as immunocompromised, increased risk of infections. Discussed with Dr. Mcmanus. He is in agreement. Thank you Dr. Zaragoza for allowing us to participate in her care.
[2018-04-20] MEDS: guaiFENesin-Codeine 100-10mg/5ml Syrup (5 ml) UD PO SCH ×4 (00:18→17:38)
[2018-04-20] MEDS: Piperacillin/Tazobact 3.375 gm 100 ML IVPB SCH ×4 (00:19→21:04)
--- NOTE | 2018-04-20 05:11 | CP.PCM.PN ---
<Chandana Tiptonima - Last Filed: 04/20/18 12:46> Subjective - Date & Time of Evaluation Date of Evaluation: 04/20/18 Time of Evaluation: 07:00 - Subjective Subjective: Pgy3 Medicine Progress note for Dr. Zaragoza Patient seen and examined at bedside. Nursing reported overnight patient slept comfortably and had no acute events. Patient denied any fever, chest pain, SOB, abd pain, nausea, vomiting, bowel/bladder complaints, pain/swelling in his legs bilaterally. She has good PO intake. For radiation today. Objective - Vital Signs/Intake and Output Vital Signs (last 24 hours): Temp Pulse Resp BP Pulse Ox 98.7 F 86 20 123/59 L 93 L 04/19/18 17:59 04/19/18 17:59 04/19/18 17:59 04/19/18 17:59 04/19/18 17:59 - Medications Medications: Current Medications Alprazolam (Xanax) 1 mg PO HS PRN; Protocol PRN Reason: Anxiety Stop: 04/21/18 17:37 Last Admin: 04/19/18 21:06 Dose: 1 mg Arformoterol Tartrate (Brovana) 15 mcg IH [id number] [facility] Last Admin: 04/19/18 19:54 Dose: 15 mcg Atorvastatin Calcium (Lipitor) 10 mg PO HS [facility] Last Admin: 04/19/18 21:04 Dose: 10 mg Budesonide (Pulmicort Respules) 0.5 mg IH [id number] [facility] Last Admin: 04/19/18 19:54 Dose: 0.5 mg Doxycycline Hyclate (Doryx) 100 mg PO Q12 [facility]; Protocol Last Admin: 04/19/18 21:03 Dose: 100 mg Enoxaparin Sodium (Lovenox) 30 mg SC DAILY [facility]; Protocol Last Admin: 04/19/18 11:59 Dose: 30 mg Famotidine (Pepcid) 20 mg PO ACBD [facility] Last Admin: 04/19/18 18:16 Dose: 20 mg Guaifenesin/Codeine Phosphate (Robitussin W/Codeine) 5 ml PO Q6 [facility] Last Admin: 04/20/18 00:18 Dose: Not Given Piperacillin Sod/Tazobactam Sod (Zosyn 3.375 In Ns 100ml) 100 mls @ 25 mls/hr IVPB Q8 [facility]; Protocol Stop: 04/22/18 14:01 Last Admin: 04/20/18 00:19 Dose: 25 mls/hr Ipratropium [place] (Atrovent) 0.5 mg IH TIDRESP PRN PRN Reason: Shortness of Breath Levalbuterol HCl (Xopenex) 0.63 mg IH TIDRESP [facility] Last Admin: 04/19/18 19:54 Dose: 0.63 mg Losartan Potassium (Cozaar) 25 mg PO DAILY [facility] Last Admin: 04/19/18 11:01 Dose: 25 mg Methylprednisolone (Solu-Medrol) 20 mg IVP DAILY [facility] Last Admin: 04/19/18 11:02 Dose: 20 mg Non-Formulary Medication (Cyclopentolate 2% Ophth [Cyclogyl 2% Ophth]) 1 drop OS TID [facility] Last Admin: 04/19/18 18:16 Dose: 1 drop Ondansetron HCl (Zofran Inj) 4 mg IVP Q4H PRN PRN Reason: Nausea/Vomiting Last Admin: 04/17/18 13:18 Dose: 4 mg Oxycodone HCl (Oxycodone Immediate Release Tab) 10 mg PO Q6H PRN PRN Reason: Pain, severe (8-10) Last Admin: 04/19/18 21:05 Dose: 10 mg Senna/Docusate Sodium (Senokot S 50 Mg-8.6 Mg) 1 tab PO BID PRN PRN Reason: Constipation - Labs Labs: 04/19/18 06:00 04/19/18 06:00 PT 13.5 SECONDS (9.4-12.5) H 04/14/18 16:00 INR 1.18 04/14/18 16:00 APTT 42.7 Seconds (25.1-36.5) H 04/14/18 16:00 - Additional Findings Additional findings: - Constitutional Appears: No Acute Distress, Chronically Ill - Head Exam Head Exam: ATRAUMATIC, NORMAL INSPECTION, NORMOCEPHALIC - Eye Exam Eye Exam: Normal appearance. absent: Conjunctival injection, Scleral icterus - ENT Exam ENT Exam: Mucous Membranes Moist - Neck Exam Neck Exam: Full ROM, Normal Inspection - Respiratory Exam Respiratory Exam: NORMAL BREATHING PATTERN. absent: Accessory Muscle Use, Decreased Breath Sounds, Rales, Rhonchi, Wheezes Additional comments: R chest wall port noted - Cardiovascular Exam Cardiovascular Exam: Tachycardia, +S1, +S2 - GI/Abdominal Exam GI & Abdominal Exam: Soft, Normal Bowel Sounds. absent: Distended, Firm, Guarding, Rigid, Tenderness - Extremities Exam Extremities Exam: Normal Capillary Refill, Normal Inspection. absent: Pedal Edema, Tenderness - Back Exam Back Exam: NORMAL INSPECTION. 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 Patient has 3rd of 10 cycles of radiation today. Patient tolerating well. Hemoptysis has resolved. Patient's IV solumedrol d/c and started on PO prednisone and bronchodilators as per pulm for chronic COPD. Patient to finish 7 days of antibiotics Doxy and Zosyn for post obstructive pneumonitis. Patient has robitussin for cough. Patient continued on home Cozaar to maintain normotension and home lipitor for dyslipidemia. Continue xanax for anxiety and re-direction as needed at night. Patient's pain is managed on oxycodone 10q6. Bowel regimen is in place. GI and DVT ppx in place. Patient not a candidate for TCU and refused DARYA. As family unable to care for her at home while she needs radiation patient will be continued to be managed in house. Discussed with Dr. Nik Tipton PGY3 <Dion Zaragoza S - Last Filed: 04/20/18 13:58> Objective - Vital Signs/Intake and Output Vital Signs (last 24 hours): Temp Pulse Resp BP Pulse Ox 97.9 F 94 H 20 148/69 96 04/20/18 08:13 04/20/18 09:54 04/20/18 08:13 04/20/18 09:54 04/20/18 08:13 Intake and Output: 04/20/18 04/20/18 06:59 18:59 Intake Total 120 Output Total 100 Balance 20 - Medications Medications: Current Medications Alprazolam (Xanax) 1 mg PO HS PRN; Protocol PRN Reason: Anxiety Stop: 04/21/18 17:37 Last Admin: 04/19/18 21:06 Dose: 1 mg Arformoterol Tartrate (Brovana) 15 mcg IH [id number] [facility] Last Admin: 04/20/18 08:14 Dose: Not Given Atorvastatin Calcium (Lipitor) 10 mg PO HS [facility] Last Admin: 04/19/18 21:04 Dose: 10 mg Budesonide (Pulmicort Respules) 0.5 mg IH [id number] [facility] Last Admin: 04/20/18 08:14 Dose: Not Given Doxycycline Hyclate (Doryx) 100 mg PO Q12 [facility]; Protocol Stop: 04/22/18 22:00 Last Admin: 04/20/18 09:54 Dose: 100 mg Enoxaparin Sodium (Lovenox) 30 mg SC DAILY [facility]; Protocol Last Admin: 04/20/18 12:43 Dose: 30 mg Famotidine (Pepcid) 20 mg PO ACBD [facility] Last Admin: 04/20/18 08:08 Dose: 20 mg Guaifenesin/Codeine Phosphate (Robitussin W/Codeine) 5 ml PO Q6 [facility] Last Admin: 04/20/18 12:43 Dose: 5 ml Piperacillin Sod/Tazobactam Sod (Zosyn 3.375 In Ns 100ml) 100 mls @ 25 mls/hr IVPB Q8 [facility]; Protocol Stop: 04/22/18 14:01 Last Admin: 04/20/18 05:52 Dose: 25 mls/hr Ipratropium [place] (Atrovent) 0.5 mg IH TIDRESP PRN PRN Reason: Shortness of Breath Levalbuterol HCl (Xopenex) 0.63 mg IH TIDRESP [facility] Last Admin: 04/20/18 13:37 Dose: 0.63 mg Losartan Potassium (Cozaar) 25 mg PO DAILY [facility] Last Admin: 04/20/18 09:54 Dose: 25 mg Non-Formulary Medication (Cyclopentolate 2% Ophth [Cyclogyl 2% Ophth]) 1 drop OS TID [facility] Last Admin: 04/20/18 09:55 Dose: 1 drop Ondansetron HCl (Zofran Inj) 4 mg IVP Q4H PRN PRN Reason: Nausea/Vomiting Last Admin: 04/20/18 08:08 Dose: 4 mg Oxycodone HCl (Oxycodone Immediate Release Tab) 10 mg PO Q6H PRN PRN Reason: Pain, severe (8-10) Last Admin: 04/19/18 21:05 Dose: 10 mg Prednisone (Prednisone Tab) 10 mg PO DAILY [facility] Stop: 04/24/18 10:01 Senna/Docusate Sodium (Senokot S 50 Mg-8.6 Mg) 1 tab PO BID PRN PRN Reason: Constipation Vancomycin HCl (Vancocin 25 Mg/Ml (Oral Use)) 250 mg PO QID [facility]; Protocol Last Admin: 04/20/18 09:57 Dose: 250 mg - Labs Labs: 04/20/18 06:00 04/20/18 06:00 PT 13.5 SECONDS (9.4-12.5) H 04/14/18 16:00 INR 1.18 04/14/18 16:00 APTT 42.7 Seconds (25.1-36.5) H 04/14/18 16:00 Assessment and Plan - Assessment and Plan (Free Text) Plan: Pt seen and examined by me. I have reviewed the note of the medical management specialist and I agree with it. I have discussed the assessment and plan with the resident. I have reviewed the medications and the last labs. Pt with Lung Ca and is now on radiation. She is on IV Abx for post-obstructive pneumonia. Pt is on Lipitor for dyslipidemia. On Xanax prn for anxiety. Spoke to Dr Moeller. She spoke to her daughter and is willing to take the pt home tomorrow. She is on Cozaar for HTN. Pt with pain is under controlled.
[2018-04-20] MEDS ORDERED: Alum-Mag Hydrox-Simethicone Susp (30 mL) PO ONE (05:59)
[2018-04-20 06:48] LABS: BASO # 0.02 K/mm3 (0.0-2.0); BASO % 0.2 % (0.0-3.0); EOS % 0.1 % (1.5-5.0); GRAN # 4.22 (1.4-6.5); GRAN % 46.5 % (50.0-68.0); HEMOGLOBIN 10.4 g/dL (12.0-16.0); LYMPH # 2.5 (1.2-3.4); LYMPH % 27.7 % (22.0-35.0); MEAN CELL VOLUME 103.1 fl (80.0-105.0); MEAN CORPUSCULAR HEMOGLOBIN 32.7 pg (25.0-35.0); MEAN CORPUSCULAR HGB CONC 31.7 g/dl (31.0-37.0); MEAN PLATELET VOLUME 10.2 fl (7.0-11.0); MONO # 2.3 (0.1-0.6); MONO % 25.5 % (1.0-6.0); RBC 3.18 10^6/uL (3.5-6.1); RED CELL DISTRIBUTION WIDTH 18.7 % (11.5-14.5); WHITE BLOOD COUNT 9.1 10^3/uL (4.5-11.0)
[2018-04-20 07:25] LABS: ALB/GLOB RATIO 1.1 (1.1-1.8); ALBUMIN 3.2 g/dL (3.0-4.8); ALT/SGPT 30 U/L (7-56); AST/SGOT 52 U/L (14-36); BLOOD UREA NITROGEN 24 mg/dL (7-21); CALCIUM 9.6 mg/dL (8.4-10.5); GFR NON-AFRICAN AMERICAN > 60
[2018-04-20] MEDS: Arformoterol 15 mcg/2 ml Inh Sol IH SCH (08:14)
[2018-04-20] MEDS: Levalbuterol 0.63 MG/3 ML Inhal Soln UD IH SCH ×2 (08:14→13:37)
[2018-04-20] MEDS: Budesonide 0.5 mg/2 ml Inhal Susp UD IH SCH (08:14)
[2018-04-20] MEDS: CYCLOPENTOLATE 2% OS SCH ×3 (09:55→17:38)
[2018-04-20] MEDS: Vancomycin 25 MG/ML PO SCH ×3 (09:57→21:13)
[2018-04-20] MEDS: MethylPREDNISolone 40 mg Vial IVP SCH (10:13)
--- NOTE | 2018-04-20 11:29 | CT ---
Date of service: 04/20/2018 PROCEDURE: CT HEAD WITHOUT CONTRAST. HISTORY: AMS COMPARISON: None available. TECHNIQUE: Axial computed tomography images were obtained through the head/brain without intravenous contrast. Radiation dose: Total exam DLP = 942.36 mGy-cm. This CT exam was performed using one or more of the following dose reduction techniques: Automated exposure control, adjustment of the mA and/or kV according to patient size, and/or use of iterative reconstruction technique. FINDINGS: Study is somewhat limited by motion artifact HEMORRHAGE: No acute parenchymal, subarachnoid or extra-axial BRAIN: Moderate- significant diffuse/confluent chronic white matter ischemic changes seen extending peripherally into the deep and subcortical white matter both cerebral hemispheres. There is also extension of these changes into the white matter tracts of both basal nuclei. Multiple more discrete deep and subcortical white matter as well as bilateral basal nuclei lacunar type infarcts present.. Note that the possibility of a small hyperacute infarct cannot be excluded. Moderate to fairly significant atrophy. VENTRICLES: No obstructive hydrocephalus. CALVARIUM: Unremarkable. PARANASAL SINUSES: Unremarkable as visualized. No significant inflammatory changes. MASTOID AIR CELLS: Unremarkable as visualized. No inflammatory changes. OTHER FINDINGS: Changes of bilateral cataract surgery again noted. The orbits and remaining contents otherwise unremarkable. IMPRESSION: Slightly limited motion degraded study. Moderate- significant diffuse/confluent chronic white matter ischemic changes seen extending peripherally into the deep and subcortical white matter both cerebral hemispheres. There is also extension of these changes into the white matter tracts of both basal nuclei. Multiple more discrete deep and subcortical white matter as well as bilateral basal nuclei lacunar type infarcts present.. Note that the possibility of a small hyperacute infarct cannot be excluded. Moderate to fairly significant atrophy.
[2018-04-20] MEDS: Enoxaparin 30 mg Syringe SC SCH (12:43)
--- NOTE | 2018-04-20 12:53 | PN ---
DATE: 04/20/2018 PULMONARY PROGRESS NOTE REFERRING PHYSICIAN: Dr. Zaragoza. SUBJECTIVE: The patient is sitting up in bed; daughter at bedside. No overnight events reported. No acute distress. No headache, rhinitis, cough, shortness of breath, chest pain, abdominal pain, nausea, vomiting, diarrhea, leg pain or leg swelling reported. PHYSICAL EXAMINATION: VITAL SIGNS: Blood pressure 148/69, pulse 94, temperature 97.9, oxygen saturation 96 on room air. GENERAL: No acute distress. HEENT: Moist mucous membranes. NECK: Supple. No JVD. LUNGS: Few scattered rhonchi bilaterally. CARDIOVASCULAR: S1 and S2 audible. ABDOMEN: Soft, nontender. No distention. No organomegaly. EXTREMITIES: No bilateral lower extremity edema. NEUROLOGIC: Awake, alert and verbal. Follows commands. MEDICATIONS: Reviewed. Xanax 1 mg at bedtime p.r.n., Brovana 15 mcg every 12 hours, Lipitor 10 mg at bedtime, Pulmicort 0.5 mg every 12 hours, doxycycline 100 mg every 12 hours, Lovenox 30 mg subcu daily, Pepcid 20 mg in the morning, Robitussin with codeine 5 mL every 6 hours, Atrovent 0.5 mg inhalation three times a day, Xopenex 0.63 mg inhalation three times a day, Cozaar 25 mg daily, Solu-Medrol 20 mg daily, cyclopentolate one drop three times a day, Zofran 4 mg every 4 hours p.r.n., oxycodone 10 mg every 6 hours p.r.n., Zosyn 3.375 g every 8 hours, Senokot one tablet twice a day p.r.n., vancomycin 250 mg four times a day. LABORATORY DATA: Reviewed. WBC 9.1, RBC 3.18, hemoglobin 10.4, hematocrit 32.8, and platelets 226. Sodium 136, potassium 4.7, chloride 105, carbon dioxide 23, anion gap 13, BUN 24, creatinine 0.9, GFR greater than 60. Random glucose 55, calcium 9.6, phosphorus 3.2, magnesium 2, total bilirubin 0.2. AST 52, ALT 30, alkaline phosphatase 190, total protein 5.9, albumin 3.2, globulin 2.8, and albumin-globulin ratio 1.1. Head CT, report pending. 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 Continue inhaled bronchodilators, gastric prophylaxis, deep venous thrombosis prophylaxis, and antibiotic therapy. We will stop Solu-Medrol and start patient on prednisone 10 mg for three days, then discontinue. The patient currently undergoing radiation therapy. Will discontinue pepcid and start Carafate oral suspension. Case discussed with daughter and patient at bedside. Oncology followup. This patient was seen and examined with Dr. Burt. Discussed assessment and plan as described above. Thank you for this consult. We will follow with you. Chauncey Rose APN Maddy Burt MD KOFFI
--- NOTE | 2018-04-20 13:29 | CP.PCM.PN ---
Subjective - Date & Time of Evaluation Date of Evaluation: 04/20/18 Time of Evaluation: 08:00 - Subjective Subjective: Patient is again for radiation today, no fevers but had an episode of vomiting. Objective - Vital Signs/Intake and Output Vital Signs (last 24 hours): Temp Pulse Resp BP Pulse Ox 98.2 F 72 20 143/67 97 04/19/18 08:16 04/19/18 11:01 04/19/18 08:16 04/19/18 11:01 04/19/18 08:16 Intake and Output: 04/19/18 04/19/18 06:59 18:59 Intake Total 720 Output Total 500 Balance 220 - Medications Medications: Current Medications Alprazolam (Xanax) 1 mg PO HS PRN; Protocol PRN Reason: Anxiety Stop: 04/21/18 17:37 Last Admin: 04/18/18 21:35 Dose: 1 mg Arformoterol Tartrate (Brovana) 15 mcg IH [id number] [facility] Last Admin: 04/19/18 07:55 Dose: 15 mcg Atorvastatin Calcium (Lipitor) 10 mg PO HS [facility] Last Admin: 04/17/18 21:19 Dose: 10 mg Budesonide (Pulmicort Respules) 0.5 mg IH [id number] [facility] Last Admin: 04/19/18 07:55 Dose: 0.5 mg Doxycycline Hyclate (Doryx) 100 mg PO Q12 [facility]; Protocol Last Admin: 04/19/18 11:57 Dose: 100 mg Enoxaparin Sodium (Lovenox) 30 mg SC DAILY [facility]; Protocol Last Admin: 04/19/18 11:59 Dose: 30 mg Famotidine (Pepcid) 20 mg PO ACBD [facility] Last Admin: 04/19/18 11:01 Dose: 20 mg Guaifenesin/Codeine Phosphate (Robitussin W/Codeine) 5 ml PO Q6 [facility] Last Admin: 04/19/18 11:02 Dose: 5 ml Piperacillin Sod/Tazobactam Sod (Zosyn 3.375 In Ns 100ml) 100 mls @ 25 mls/hr IVPB Q8 [facility]; Protocol Stop: 04/22/18 14:01 Last Admin: 04/19/18 14:42 Dose: 25 mls/hr Ipratropium [place] (Atrovent) 0.5 mg IH TIDRESP PRN PRN Reason: Shortness of Breath Levalbuterol HCl (Xopenex) 0.63 mg IH TIDRESP [facility] Last Admin: 04/19/18 13:25 Dose: 0.63 mg Losartan Potassium (Cozaar) 25 mg PO DAILY [facility] Last Admin: 04/19/18 11:01 Dose: 25 mg Methylprednisolone (Solu-Medrol) 20 mg IVP DAILY [facility] Last Admin: 04/19/18 11:02 Dose: 20 mg Non-Formulary Medication (Cyclopentolate 2% Ophth [Cyclogyl 2% Ophth]) 1 drop OS TID [facility] Last Admin: 04/19/18 14:42 Dose: 1 drop Ondansetron HCl (Zofran Inj) 4 mg IVP Q4H PRN PRN Reason: Nausea/Vomiting Last Admin: 04/17/18 13:18 Dose: 4 mg Oxycodone HCl (Oxycodone Immediate Release Tab) 10 mg PO Q6H PRN PRN Reason: Pain, severe (8-10) Senna/Docusate Sodium (Senokot S 50 Mg-8.6 Mg) 1 tab PO BID PRN PRN Reason: Constipation - Labs Labs: 04/19/18 06:00 04/19/18 06:00 PT 13.5 SECONDS (9.4-12.5) H 04/14/18 16:00 INR 1.18 04/14/18 16:00 APTT 42.7 Seconds (25.1-36.5) H 04/14/18 16:00 - Constitutional Appears: Chronically Ill - Head Exam Head Exam: NORMAL INSPECTION - Respiratory Exam Respiratory Exam: Decreased Breath Sounds - Cardiovascular Exam Cardiovascular Exam: +S1, +S2 - GI/Abdominal Exam GI & Abdominal Exam: Soft. absent: Tenderness Assessment and Plan - Assessment and Plan (Free Text) Plan: Assessment consider post-obstructive pneumonitis on the right hemoptysis probably related to lung cancer stage 4 lung cancer with liver metastases on palliative chemotherapy HTN dyslipidemia bilateral cataract surgery Plan continue Zosyn day 6 and Doxycycline and will continue to monitor clinically - target 4-7 days of therapy; PCT is 0.19 overall prognosis is poor discussed with Dr. Hay previously
[2018-04-20] MEDS: Sucralfate 1 gm/10 ml Oral Susp UD PO SCH (21:04)
[2018-04-20] MEDS: oxyCODONE 10 mg Immediate Release Tab PO PRN (21:06)
[2018-04-21] MEDS: guaiFENesin-Codeine 100-10mg/5ml Syrup (5 ml) UD PO SCH ×3 (00:14→12:41)
--- NOTE | 2018-04-21 04:25 | CP.PCM.DIS ---
<Olena Tipton - Last Filed: 04/21/18 11:29> Provider - Provider Date of Admission: 04/15/18 07:44 Attending physician: Dion Zaragoza MD Primary care physician: Ghanshyam Jay MD Consults: 04/14/18 17:32 Hematology Oncology Consult Stat Comment: Consulting Provider: Annia Moeller Consulting Physician: Annia Moeller Reason for Consult: lung cancer 04/14/18 17:38 Consult [Physician Consult] Stat Comment: Consulting Provider: Annia Moeller Consulting Physician: Annia Moeller Reason for Consult: lung ca Consult [Physician Consult] Stat Comment: Consulting Provider: Maddy Burt Consulting Physician: Maddy Burt Reason for Consult: hemoptysis 04/15/18 07:45 Consult [Physician Consult] Routine Comment: Consulting Provider: Isidro White Consulting Physician: Isidro White Reason for Consult: Post-ob pneumonia 04/17/18 08:42 TCU [Evaluation for TRCU] Routine Comment: Physician Instructions: Reason For Exam: deconditioning 04/17/18 08:45 Consult [Physician Consult] Routine Comment: radiation Consulting Provider: Denise Garcia Consulting Physician: Denise Garcia Reason for Consult: radiation 04/17/18 08:53 Physician Consult Routine Comment: Consulting Provider: Denise Garcia Consulting Physician: Denise Garcia Reason for Consult: radiation eval 04/19/18 13:29 Podiatry Consult Routine Comment: Consulting Provider: Lexi Guardado Consulting Physician: Lexi Guardado Reason for Consult: elongated toenails Time Spent in preparation of Discharge (in minutes): 35 Hospital Course - Lab Results Lab Results: Most Recent Lab Values WBC 9.1 10^3/uL (4.5-11.0) D 04/20/18 06:00 RBC 3.18 10^6/uL (3.5-6.1) L 04/20/18 06:00 Hgb 10.4 g/dL (12.0-16.0) L 04/20/18 06:00 Hct 32.8 % (36.0-48.0) L 04/20/18 06:00 MCV 103.1 fl (80.0-105.0) 04/20/18 06:00 MCH 32.7 pg (25.0-35.0) 04/20/18 06:00 MCHC 31.7 g/dl (31.0-37.0) 04/20/18 06:00 RDW 18.7 % (11.5-14.5) H 04/20/18 06:00 Plt Count 226 10^3/uL (120.0-450.0) 04/20/18 06:00 MPV 10.2 fl (7.0-11.0) 04/20/18 06:00 Gran % 46.5 % (50.0-68.0) L 04/20/18 06:00 Lymph % (Auto) 27.7 % (22.0-35.0) 04/20/18 06:00 [place] % (Auto) 25.5 % (1.0-6.0) H 04/20/18 06:00 Eos % (Auto) 0.1 % (1.5-5.0) L 04/20/18 06:00 Baso % (Auto) 0.2 % (0.0-3.0) 04/20/18 06:00 Gran # 4.22 (1.4-6.5) 04/20/18 06:00 Lymph # (Auto) 2.5 (1.2-3.4) 04/20/18 06:00 [place] # (Auto) 2.3 (0.1-0.6) H 04/20/18 06:00 Eos # (Auto) 0.0 (0.0-0.7) 04/20/18 06:00 Baso # (Auto) 0.02 K/mm3 (0.0-2.0) 04/20/18 06:00 Neutrophils % (Manual) 42 % (50.0-70.0) L 04/19/18 06:00 Lymphocytes % (Manual) 29 % (22.0-35.0) 04/19/18 06:00 Monocytes % (Manual) 29 % (1.0-6.0) H 04/19/18 06:00 PT 13.5 SECONDS (9.4-12.5) H 04/14/18 16:00 INR 1.18 04/14/18 16:00 APTT 42.7 Seconds (25.1-36.5) H 04/14/18 16:00 Sodium 136 mmol/L (132-148) 04/20/18 06:00 Potassium 4.7 mmol/L (3.6-5.0) 04/20/18 06:00 Chloride 105 mmol/L (98-107) 04/20/18 06:00 Carbon Dioxide 23 mmol/L (21-33) 04/20/18 06:00 Anion Gap 13 (10-20) 04/20/18 06:00 BUN 24 mg/dL (7-21) H 04/20/18 06:00 Creatinine 0.9 mg/dl (0.7-1.2) 04/20/18 06:00 Est GFR ( Amer) > 60 04/20/18 06:00 Est GFR (Non-Af Amer) > 60 04/20/18 06:00 POC Glucose (mg/dL) 80 mg/dL (65-110) 04/19/18 21:04 Random Glucose 55 mg/dL (70-110) L 04/20/18 06:00 Calcium 9.6 mg/dL (8.4-10.5) 04/20/18 06:00 Phosphorus 3.3 mg/dL (2.5-4.5) 04/20/18 06:00 Magnesium 2.0 mg/dL (1.7-2.2) 04/20/18 06:00 Iron 47 ug/dL (45-180) 04/16/18 06:00 TIBC 195 ug/dL (265-497) L 04/16/18 06:00 % Saturation 24 % (20-55) 04/16/18 06:00 Ferritin 574.0 ng/mL 04/16/18 06:00 Total Bilirubin 0.3 mg/dL (0.2-1.3) 04/20/18 06:00 AST 52 U/L (14-36) H 04/20/18 06:00 ALT 30 U/L (7-56) 04/20/18 06:00 Alkaline Phosphatase 190 U/L (38-126) H 04/20/18 06:00 Total Protein 5.9 g/dL (5.8-8.3) 04/20/18 06:00 Albumin 3.2 g/dL (3.0-4.8) 04/20/18 06:00 Globulin 2.8 gm/dL 04/20/18 06:00 Albumin/Globulin Ratio 1.1 (1.1-1.8) 04/20/18 06:00 Vitamin B12 924 pg/mL (239-931) 04/16/18 06:00 Folate 12.4 ng/mL 04/16/18 06:00 Procalcitonin 0.19 NG/ML (0.19-0.49) 04/15/18 18:33 Blood Type O NEGATIVE 04/14/18 15:58 Blood Type Confirm O NEGATIVE 04/14/18 16:32 Antibody Screen Negative 04/14/18 15:58 BBK History Checked No verified bt 04/14/18 15:58 - Hospital Course Hospital Course: Upon Admission 82yo female PMHx 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 Patient was receiving palliative chemo with Dr. Moeller fr her lung cancer. She has a history of jemoptysis but reports it was worsening and she felt weak. She denied any chest pain, SOB, dizziness. She reports eating but has a decreased appetite at times. Patient lives at home with her daughter and was recently on abx. 12 point ROS were negative unless otherwise mentioned. Hospital Course Patient was admitted to [facility]. Patient has a history of small cell lung ca diagnosed September 2017 and had undergone 3 cycles of carboplatin and etoposide which she was unable to tolerate due to diarrhe and was switched to single agent rivaroxaban. As per recommendations of heme/onc Dr. Moeller, radiation-onc Dr. Garcia consulted for possible short course of radiation for endobronchial lesion noted on Chest CT. Patient was started on IV solumedrol and Bronchodilators for chronic COPD and started on Doxy and Zosyn as per ID for post obstructive pneumonitis. Patient was also continued on home Cozaar to maintain normotension and home lipitor for HLD. Patient was continued on xanax at night for anxiety and re-direction as needed. Patient's pain was managed on oxycodone 10q6 and patient was on home bowel regimen in place to avoid constipation. Patient was started on radiation as per radiation-onc for 10 cycles total. Patient was not a candidate for TCU due to insurance. PT recommended [facility]. In light of patient's need for radiation, placement in [facility] was considered a challenge. As per social work, patient wanted to be discharged home and did not want to go to [facility] thus she was set up for home with services. Patient clinically improved and hemoptysis resolved during her hospital stay. On day of discharge she was deemed medically optimized for discharge home. Discharge Instructions "You are being discharged from [facility]. You will be discharged home with services. Please continue your radiation treatments Please resume your home medications as prescribed by your PMD Dr. Jay You are additionally being discharged on the following medication: -Prednisone 10mg 1 tab by mouth for one day Disp#1 Please follow up with your PMD Dr. Jay within 7 days of discharge. Please also follow up with your Oncologist Dr. Moeller within 10 days of discharge. Please also follow up with Radiation-Oncologist Dr. Garcia within 10 days of discharge. If you have any shortness of breath, cough, falls, or return of symptoms please visit your nearest Emergency Room." Patient understood and agreed with discharge instructions. Please note this is a discharge summary. For full hospital course please refer to EMR. Discharge Exam - Additional Findings Additional findings: - Constitutional Appears: No Acute Distress, Chronically Ill - Head Exam Head Exam: ATRAUMATIC, NORMAL INSPECTION, NORMOCEPHALIC - Eye Exam Eye Exam: Normal appearance. absent: Conjunctival injection, Scleral icterus - ENT Exam ENT Exam: Mucous Membranes Moist - Neck Exam Neck Exam: Full ROM, Normal Inspection - Respiratory Exam Respiratory Exam: NORMAL BREATHING PATTERN. absent: Accessory Muscle Use, Decreased Breath Sounds, Rales, Rhonchi, Wheezes Additional comments: R chest wall port noted - Cardiovascular Exam Cardiovascular Exam: Tachycardia, +S1, +S2 - GI/Abdominal Exam GI & Abdominal Exam: Soft, Normal Bowel Sounds. absent: Distended, Firm, Guarding, Rigid, Tenderness - Extremities Exam Extremities Exam: Normal Capillary Refill, Normal Inspection. absent: Pedal Edema, Tenderness - Back Exam Back Exam: NORMAL INSPECTION. absent: rash noted - Neurological Exam Neurological Exam: Alert, Awake - Psychiatric Exam Psychiatric exam: Normal Affect, Normal Mood - Skin Skin Exam: Dry, Intact, Normal Color, Warm Discharge Plan - Discharge Medications Prescriptions: RX: predniSONE [predniSONE Tab] 10 mg PO DAILY #1 tab valACYclovir [Valtrex] 500 mg PO DAILY #30 tab - Follow Up Plan Condition: FAIR Disposition: HOME/ ROUTINE Instructions: Radiation Therapy, Internal, Coughing up Blood Additional Instructions: You are being discharged from [facility]. You will be discharged home with services. Please continue your radiation treatments Please resume your home medications as prescribed by your PMD Dr. Jay You are additionally being discharged on the following medication: -Prednisone 10mg 1 tab by mouth for one day Disp#1 Please follow up with your PMD Dr. Jay within 7 days of discharge. Please also follow up with your Oncologist Dr. Moeller within 10 days of discharge. Please also follow up with Radiation-Oncologist Dr. Garcia within 10 days of discharge. If you have any shortness of breath, cough, falls, or return of symptoms please visit your nearest Emergency Room. Referrals: Denise Garcia MD [Staff Provider] - Ghanshyam Jay MD [Primary Care Provider] - Annia Moeller MD [Staff Provider] - Maddy Burt MD [Staff Provider] - <Dion Zaragoza - Last Filed: 04/21/18 18:54> Provider - Provider Date of Admission: 04/15/18 07:44 Attending physician: Dion Zaragoza MD Primary care physician: Ghanshyam Jay MD Consults: 04/14/18 17:32 Hematology Oncology Consult Stat Comment: Consulting Provider: Annia Moeller Consulting Physician: Annia Moeller Reason for Consult: lung cancer 04/14/18 17:38 Consult [Physician Consult] Stat Comment: Consulting Provider: Annia Moeller Consulting Physician: Annia Moeller Reason for Consult: lung ca Consult [Physician Consult] Stat Comment: Consulting Provider: Maddy Burt Consulting Physician: Maddy Burt Reason for Consult: hemoptysis 04/15/18 07:45 Consult [Physician Consult] Routine Comment: Consulting Provider: Isidro White Consulting Physician: Isidro White Reason for Consult: Post-ob pneumonia 04/17/18 08:42 TCU [Evaluation for TRCU] Routine Comment: Physician Instructions: Reason For Exam: deconditioning 04/17/18 08:45 Consult [Physician Consult] Routine Comment: radiation Consulting Provider: Denise Garcia Consulting Physician: Denise Garcia Reason for Consult: radiation 04/17/18 08:53 Physician Consult Routine Comment: Consulting Provider: Denise Garcia Consulting Physician: Denise Garcia Reason for Consult: radiation eval 04/19/18 13:29 Podiatry Consult Routine Comment: Consulting Provider: Lexi Guardado Consulting Physician: Lexi Guardado Reason for Consult[facility] Course - Lab Results Lab Results: Micro Results 04/21/18 04:30 Stool C. difficile Antigen & Toxins A,B - Final Most Recent Lab Values WBC 8.2 10^3/uL (4.5-11.0) 04/21/18 07:36 RBC 3.30 10^6/uL (3.5-6.1) L 04/21/18 07:36 Hgb 10.6 g/dL (12.0-16.0) L 04/21/18 07:36 Hct 34.3 % (36.0-48.0) L 04/21/18 07:36 MCV 103.9 fl (80.0-105.0) 04/21/18 07:36 MCH 32.1 pg (25.0-35.0) 04/21/18 07:36 MCHC 30.9 g/dl (31.0-37.0) L 04/21/18 07:36 RDW 18.3 % (11.5-14.5) H 04/21/18 07:36 Plt Count 224 10^3/uL (120.0-450.0) 04/21/18 07:36 MPV 9.9 fl (7.0-11.0) 04/21/18 07:36 Gran % 50.8 % (50.0-68.0) 04/21/18 07:36 Lymph % (Auto) 27.0 % (22.0-35.0) 04/21/18 07:36 [place] % (Auto) 21.7 % (1.0-6.0) H 04/21/18 07:36 Eos % (Auto) 0.4 % (1.5-5.0) L 04/21/18 07:36 Baso % (Auto) 0.1 % (0.0-3.0) 04/21/18 07:36 Gran # 4.18 (1.4-6.5) 04/21/18 07:36 Lymph # (Auto) 2.2 (1.2-3.4) 04/21/18 07:36 [place] # (Auto) 1.8 (0.1-0.6) H 04/21/18 07:36 Eos # (Auto) 0.0 (0.0-0.7) 04/21/18 07:36 Baso # (Auto) 0.01 K/mm3 (0.0-2.0) 04/21/18 07:36 Neutrophils % (Manual) 42 % (50.0-70.0) L 04/19/18 06:00 Lymphocytes % (Manual) 29 % (22.0-35.0) 04/19/18 06:00 Monocytes % (Manual) 29 % (1.0-6.0) H 04/19/18 06:00 PT 13.5 SECONDS (9.4-12.5) H 04/14/18 16:00 INR 1.18 04/14/18 16:00 APTT 42.7 Seconds (25.1-36.5) H 04/14/18 16:00 Sodium 138 mmol/L (132-148) 04/21/18 07:36 Potassium 4.6 mmol/L (3.6-5.0) 04/21/18 07:36 Chloride 105 mmol/L (98-107) 04/21/18 07:36 Carbon Dioxide 22 mmol/L (21-33) 04/21/18 07:36 Anion Gap 15 (10-20) 04/21/18 07:36 BUN 22 mg/dL (7-21) H 04/21/18 07:36 Creatinine 1.0 mg/dl (0.7-1.2) 04/21/18 07:36 Est GFR ( Amer) > 60 04/21/18 07:36 Est GFR (Non-Af Amer) 53 04/21/18 07:36 POC Glucose (mg/dL) 80 mg/dL (65-110) 04/19/18 21:04 Random Glucose 66 mg/dL (70-110) L 04/21/18 07:36 Calcium 10.0 mg/dL (8.4-10.5) 04/21/18 07:36 Phosphorus 3.8 mg/dL (2.5-4.5) 04/21/18 07:36 Magnesium 2.1 mg/dL (1.7-2.2) 04/21/18 07:36 Iron 47 ug/dL (45-180) 04/16/18 06:00 TIBC 195 ug/dL (265-497) L 04/16/18 06:00 % Saturation 24 % (20-55) 04/16/18 06:00 Ferritin 574.0 ng/mL 04/16/18 06:00 Total Bilirubin 0.3 mg/dL (0.2-1.3) 04/21/18 07:36 AST 49 U/L (14-36) H 04/21/18 07:36 ALT 27 U/L (7-56) 04/21/18 07:36 Alkaline Phosphatase 195 U/L (38-126) H 04/21/18 07:36 Total Protein 5.9 g/dL (5.8-8.3) 04/21/18 07:36 Albumin 3.1 g/dL (3.0-4.8) 04/21/18 07:36 Globulin 2.8 gm/dL 04/21/18 07:36 Albumin/Globulin Ratio 1.1 (1.1-1.8) 04/21/18 07:36 Vitamin B12 924 pg/mL (239-931) 04/16/18 06:00 Folate 12.4 ng/mL 04/16/18 06:00 Procalcitonin 0.19 NG/ML (0.19-0.49) 04/15/18 18:33 Blood Type O NEGATIVE 04/14/18 15:58 Blood Type Confirm O NEGATIVE 04/14/18 16:32 Antibody Screen Negative 04/14/18 15:58 BBK History Checked No verified bt 04/14/18 15:58 - Hospital Course Hospital Course: Pt seen and examined by me. I have reviewed the note of the center medical director and I agree with it. I have discussed the assessment and plan with the resident. I have reviewed the medications and the last labs. Pt with Lung ca and hemoptysis, which has improved. She has been getting radiation and will continue as outpt. Pain is controlled. She has HTN and it is controlled. She developed a post- obstructive pneumonia and was treated with IV antibiotics. She refused to go to [facility] and will go home.
[2018-04-21] MEDS: Piperacillin/Tazobact 3.375 gm 100 ML IVPB SCH (06:15)
[2018-04-21] MEDS: Sucralfate 1 gm/10 ml Oral Susp UD PO SCH ×2 (06:18→12:41)
[2018-04-21 07:18] VITALS: PULSE 94; TEMP 98.3; O2SAT 94
[2018-04-21] MEDS: Levalbuterol 0.63 MG/3 ML Inhal Soln UD IH SCH (07:46)
[2018-04-21] MEDS: Arformoterol 15 mcg/2 ml Inh Sol IH SCH (07:46)
[2018-04-21] MEDS: Budesonide 0.5 mg/2 ml Inhal Susp UD IH SCH (07:46)
[2018-04-21 07:50] LABS: BASO # 0.01 K/mm3 (0.0-2.0); BASO % 0.1 % (0.0-3.0); EOS % 0.4 % (1.5-5.0); GRAN # 4.18 (1.4-6.5); GRAN % 50.8 % (50.0-68.0); HEMOGLOBIN 10.6 g/dL (12.0-16.0); LYMPH # 2.2 (1.2-3.4); MEAN CELL VOLUME 103.9 fl (80.0-105.0); MEAN CORPUSCULAR HEMOGLOBIN 32.1 pg (25.0-35.0); MEAN CORPUSCULAR HGB CONC 30.9 g/dl (31.0-37.0); MEAN PLATELET VOLUME 9.9 fl (7.0-11.0); MONO # 1.8 (0.1-0.6); MONO % 21.7 % (1.0-6.0); RBC 3.3 10^6/uL (3.5-6.1); RED CELL DISTRIBUTION WIDTH 18.3 % (11.5-14.5); WHITE BLOOD COUNT 8.2 10^3/uL (4.5-11.0)
[2018-04-21 08:03] LABS: ALB/GLOB RATIO 1.1 (1.1-1.8); ALBUMIN 3.1 g/dL (3.0-4.8); ALT/SGPT 27 U/L (7-56); AST/SGOT 49 U/L (14-36); BLOOD UREA NITROGEN 22 mg/dL (7-21); GFR NON-AFRICAN AMERICAN 53
[2018-04-21] MEDS: Vancomycin 25 MG/ML PO SCH (09:34)
[2018-04-21 09:36] VITALS: BP 119/66
[2018-04-21] MEDS: CYCLOPENTOLATE 2% OS SCH ×2 (09:36→13:52)
[2018-04-21] MEDS ORDERED: Enoxaparin 30 mg Syringe SC SCH (10:00)
--- NOTE | 2018-04-21 11:17 | PN ---
DATE: 04/21/2018 PULMONARY PROGRESS NOTE REFERRING PHYSICIAN: Dion Zaragoza MD SUBJECTIVE: The patient is sitting up in bed. No acute distress. No overnight events reported. Reports at times there are periods of cough and shortness of breath. No headache, rhinitis, chest pain, abdominal pain, nausea, vomiting, diarrhea, leg pain or leg swelling reported. PHYSICAL EXAMINATION: GENERAL: No acute distress. VITAL SIGNS: Blood pressure 119/65, pulse 94, temperature 98.3 and oxygen saturation 94%on room air. HEENT: Moist mucous membranes. NECK: Supple. No JVD. LUNGS: Few scattered rhonchi bilaterally. CARDIOVASCULAR: S1 and S2 audible. ABDOMEN: Soft and nontender. No distention. No organomegaly. EXTREMITIES: No bilateral lower extremity edema. NEUROLOGIC: Awake, alert and verbal. Follows commands. MEDICATIONS: Reviewed. Xanax 1 mg at bedtime p.r.n., Brovana 15 mcg every 12 hours, Lipitor 10 mg at bedtime, Pulmicort 0.5 mg every 12 hours, doxycycline 100 mg every 12 hours, Lovenox 30 mg subcutaneously daily, Robitussin with codeine 5 mL every 6 hours, Atrovent 0.5 mg inhalation 3 times a day p.r.n., Xopenex 0.63 mg inhalation 3 times a day, Cozaar 25 mg p.o. daily, cyclopentolate one drop 3 times a day, Zofran 4 mg IV push every 4 hours p.r.n., oxycodone 10 mg every 6 hours p.r.n., Zosyn 3.375 g every 8 hours, prednisone 10 mg daily, senna/docusate sodium one tablet twice a day p.r.n., Carafate 1 g 4 times a day and vancomycin 250 mg 4 times a day. LABORATORY DATA: Reviewed. WBC 8.2, RBC 3.30, hemoglobin 10.6, hematocrit 34.3, and platelets 224. Sodium 138, potassium 4.6, chloride 105, carbon dioxide 22, anion gap 15, BUN 22, creatinine 1, GFR is 53, random glucose 66, calcium 10, phosphorus 3.8, magnesium 2.1, total bilirubin 0.3, AST 49, ALT 27, alkaline phosphatase 195, total protein 5.9, albumin 3.1, globulin 2.8, and albumin-globulin ratio 1.1. Head CT shows moderate significant diffuse confluent chronic white matter ischemic changes seen extending peripherally into the deep and subcortical white matter, both cerebral hemispheres; multiple more discrete deep and subcortical white matter as well as bilateral basal nuclei lacunar type infarcts present and moderate to fairly significant atrophy. 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 Continue inhaled bronchodilators, gastric prophylaxis, deep venous thrombosis prophylaxis, continue antibiotic therapy per Infectious Disease. Continue prednisone 10 mg for 3 days then will discontinue. The patient is scheduled for discharge home today to continue radiation therapy as outpatient. Continue followup with Oncology. This patient was seen and examined with Dr. Burt. Discussed assessment and plan as described above. Thank you for this consult and we will follow with you. Chauncey Rose APN Maddy Burt MD
--- NOTE | 2018-04-21 12:52 | CP.PCM.CON ---
<Brian Patino - Last Filed: 04/21/18 12:48> History of Present Illness - History of Present Illness History of Present Illness: Podiatry consult note for Dr. Bustillos 82F on chemotherapy seen and evaluated at bedside for elongated dystrophic nails. States that she sees a jack strip assembler outside the hospital but has not been able to go for a while and missed her appointment. She reports mild discomfort with nails and has no other acute complaints today. Denies constitutional symptoms. PMHx: above PSHx: no hx of foot sx All: sulfa Past Patient History - Infectious Disease Hx of Infectious Diseases: None - Past Social History Smoking Status: Former Smoker - CARDIAC Hx Cardiac Disorders: Yes Hx Hypercholesterolemia: Yes Hx Hypertension: Yes - PULMONARY Hx Respiratory Disorders: Yes (USED TO SMOKE CIGARETTES.QUIT 10 YRS AGO.< PPD.) Other/Comment: Stage 4 lung cancer. 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 - MUSCULOSKELETAL/RHEUMATOLOGICAL Hx Arthritis: Yes (knees) - GASTROINTESTINAL Hx Gastrointestinal Disorders: Yes Hx Ulcer: Yes - GENITOURINARY/GYNECOLOGICAL Hx Genitourinary Disorders: No - PSYCHIATRIC Hx Psychophysiologic Disorder: Yes Hx Anxiety: Yes Hx Substance Use: No - SURGICAL HISTORY Hx Surgeries: Yes Hx Orthopedic Surgery: Yes (HIP L) Other/Comment: BX LIVER, SKIN CANCER - ANESTHESIA Hx Anesthesia: No Hx Anesthesia Reactions: No Hx Malignant Hyperthermia: No Meds Home Medications: Home Medication List Medication Instructions Recorded Confirmed Type RX: Arformoterol [Brovana] 15 mcg IH [id number] [facility] 04/21/18 Rx RX: Budesonide [Pulmicort Respules] 0.5 mg IH [id number] [facility] 04/21/18 Rx RX: Ipratropium 0.02% [Atrovent] 0.5 mg IH TIDRESP PRN [facility] 04/21/18 Rx RX: predniSONE [predniSONE Tab] 10 mg PO DAILY #1 tab 04/21/18 Rx Allergies/Adverse Reactions: Allergies Allergy/AdvReac Type Severity Reaction Status Date / Time Sulfa (Sulfonamide Allergy ANAPHYLAXIS Verified 01/21/18 05:18 Antibiotics) - Medications Medications: Current Medications Alprazolam (Xanax) 1 mg PO HS PRN; Protocol PRN Reason: Anxiety Stop: 04/21/18 17:37 Last Admin: 04/20/18 21:06 Dose: 1 mg Arformoterol Tartrate (Brovana) 15 mcg IH [id number] [facility] Last Admin: 04/21/18 07:46 Dose: Not Given Atorvastatin Calcium (Lipitor) 10 mg PO HS [facility] Last Admin: 04/20/18 21:04 Dose: 10 mg Budesonide (Pulmicort Respules) 0.5 mg IH [id number] [facility] Last Admin: 04/21/18 07:46 Dose: Not Given Doxycycline Hyclate (Doryx) 100 mg PO Q12 [facility]; Protocol Stop: 04/22/18 22:00 Last Admin: 04/21/18 09:32 Dose: 100 mg Enoxaparin Sodium (Lovenox) 30 mg SC DAILY [facility]; Protocol Last Admin: 04/21/18 09:36 Dose: 30 mg Guaifenesin/Codeine Phosphate (Robitussin W/Codeine) 5 ml PO Q6 [facility] Last Admin: 04/21/18 12:41 Dose: 5 ml Piperacillin Sod/Tazobactam Sod (Zosyn 3.375 In Ns 100ml) 100 mls @ 25 mls/hr IVPB Q8 [facility]; Protocol Stop: 04/22/18 14:01 Last Admin: 04/21/18 06:15 Dose: 25 mls/hr Ipratropium [place] (Atrovent) 0.5 mg IH TIDRESP PRN PRN Reason: Shortness of Breath Levalbuterol HCl (Xopenex) 0.63 mg IH TIDRESP [facility] Last Admin: 04/21/18 07:46 Dose: Not Given Losartan Potassium (Cozaar) 25 mg PO DAILY [facility] Last Admin: 04/21/18 09:32 Dose: 25 mg Non-Formulary Medication (Cyclopentolate 2% Ophth [Cyclogyl 2% Ophth]) 1 drop OS TID [facility] Last Admin: 04/21/18 09:36 Dose: 1 drop Ondansetron HCl (Zofran Inj) 4 mg IVP Q4H PRN PRN Reason: Nausea/Vomiting Last Admin: 04/20/18 08:08 Dose: 4 mg Oxycodone HCl (Oxycodone Immediate Release Tab) 10 mg PO Q6H PRN PRN Reason: Pain, severe (8-10) Last Admin: 04/20/18 21:06 Dose: 10 mg Pantoprazole Sodium (Protonix Ec Tab) 40 mg PO [facility] Prednisone (Prednisone Tab) 10 mg PO DAILY [facility] Stop: 04/24/18 10:01 Last Admin: 04/21/18 09:33 Dose: 10 mg Senna/Docusate Sodium (Senokot S 50 Mg-8.6 Mg) 1 tab PO BID PRN PRN Reason: Constipation Sucralfate (Carafate Oral Susp) 1 gm PO 0630,1130,1630,2200 [facility] Last Admin: 04/21/18 12:41 Dose: 1 gm Vancomycin HCl (Vancocin 25 Mg/Ml (Oral Use)) 250 mg PO QID [facility]; Protocol Last Admin: 04/21/18 09:34 Dose: 250 mg Physical Exam - Constitutional Appears: Non-toxic, No Acute Distress - Head Exam Head Exam: ATRAUMATIC, NORMOCEPHALIC - Extremities Exam Additional comments: VASC: DP and PT pulses palpable; cap refill <3 seconds to all digits; temp gradient normal; no edema present DERM: skin temp and turgor within normal limits; nails elongated x 10 ORTHO: mild discomfort to nails, no other gross deformity present NEURO: gross and protective sensation intact - Neurological Exam Neurological exam: Alert, Oriented x3 - Psychiatric Exam Psychiatric exam: Normal Affect, Normal Mood Results - Vital Signs Recent Vital Signs: Last Vital Signs Temp 98.3 F 04/21/18 06:00 Pulse 94 H 04/21/18 09:32 Resp 20 04/21/18 06:00 BP 119/66 04/21/18 09:32 Pulse Ox 94 L 04/21/18 06:00 - Labs Result Diagrams: 04/21/18 07:36 04/21/18 07:36 Labs: Laboratory Results - last 24 hr 04/21/18 04/21/18 07:36 07:36 WBC 8.2 RBC 3.30 L Hgb 10.6 L Hct 34.3 L MCV 103.9 MCH 32.1 MCHC 30.9 L RDW 18.3 H Plt Count 224 MPV 9.9 Gran % 50.8 Lymph % (Auto) 27.0 [place] % (Auto) 21.7 H Eos % (Auto) 0.4 L Baso % (Auto) 0.1 Gran # 4.18 Lymph # (Auto) 2.2 [place] # (Auto) 1.8 H Eos # (Auto) 0.0 Baso # (Auto) 0.01 Sodium 138 Potassium 4.6 Chloride 105 Carbon Dioxide 22 Anion Gap 15 BUN 22 H Creatinine 1.0 Est GFR ( Amer) > 60 Est GFR (Non-Af Amer) 53 Random Glucose 66 L Calcium 10.0 Phosphorus 3.8 Magnesium 2.1 Total Bilirubin 0.3 AST 49 H ALT 27 Alkaline Phosphatase 195 H Total Protein 5.9 Albumin 3.1 Globulin 2.8 Albumin/Globulin Ratio 1.1 Assessment & Plan - Assessment and Plan (Free Text) Assessment: 82F with elongated and dystrophic nails x 10 Plan: Patient seen and evaluated Discussed in detail with Dr. Bustillos Nails cut with sterile nail nipper without complication - patient tolerated well Podiatry to sign off Thank you for the consult - Date & Time Date: 04/21/18 Time: 12:52 <Alfredo Bustillos - Last Filed: 04/21/18 13:53> Meds - Medications Medications: Current Medications Alprazolam (Xanax) 1 mg PO HS PRN; Protocol PRN Reason: Anxiety Stop: 04/21/18 17:37 Last Admin: 04/20/18 21:06 Dose: 1 mg Arformoterol Tartrate (Brovana) 15 mcg IH [id number] [facility] Last Admin: 04/21/18 07:46 Dose: Not Given Atorvastatin Calcium (Lipitor) 10 mg PO HS [facility] Last Admin: 04/20/18 21:04 Dose: 10 mg Budesonide (Pulmicort Respules) 0.5 mg IH [id number] [facility] Last Admin: 04/21/18 07:46 Dose: Not Given Enoxaparin Sodium (Lovenox) 30 mg SC DAILY [facility]; Protocol Last Admin: 04/21/18 09:36 Dose: 30 mg Guaifenesin/Codeine Phosphate (Robitussin W/Codeine) 5 ml PO Q6 [facility] Last Admin: 04/21/18 12:41 Dose: 5 ml Ipratropium [place] (Atrovent) 0.5 mg IH TIDRESP PRN PRN Reason: Shortness of Breath Levalbuterol HCl (Xopenex) 0.63 mg IH TIDRESP [facility] Last Admin: 04/21/18 07:46 Dose: Not Given Losartan Potassium (Cozaar) 25 mg PO DAILY [facility] Last Admin: 04/21/18 09:32 Dose: 25 mg Non-Formulary Medication (Cyclopentolate 2% Ophth [Cyclogyl 2% Ophth]) 1 drop OS TID [facility] Last Admin: 04/21/18 09:36 Dose: 1 drop Ondansetron HCl (Zofran Inj) 4 mg IVP Q4H PRN PRN Reason: Nausea/Vomiting Last Admin: 04/20/18 08:08 Dose: 4 mg Oxycodone HCl (Oxycodone Immediate Release Tab) 10 mg PO Q6H PRN PRN Reason: Pain, severe (8-10) Last Admin: 04/20/18 21:06 Dose: 10 mg Pantoprazole Sodium (Protonix Ec Tab) 40 mg PO HS [facility] Prednisone (Prednisone Tab) 10 mg PO DAILY [facility] Stop: 04/24/18 10:01 Last Admin: 04/21/18 09:33 Dose: 10 mg Senna/Docusate Sodium (Senokot S 50 Mg-8.6 Mg) 1 tab PO BID PRN PRN Reason: Constipation Sucralfate (Carafate Oral Susp) 1 gm PO 0630,1130,1630,2200 [facility] Last Admin: 04/21/18 12:41 Dose: 1 gm Results - Vital Signs Recent Vital Signs: Last Vital Signs Temp 98.3 F 04/21/18 06:00 Pulse 94 H 04/21/18 09:32 Resp 20 04/21/18 06:00 BP 119/66 04/21/18 09:32 Pulse Ox 94 L 04/21/18 06:00 - Labs Result Diagrams: 04/21/18 07:36 04/21/18 07:36 Labs: Laboratory Results - last 24 hr 04/21/18 04/21/18 07:36 07:36 WBC 8.2 RBC 3.30 L Hgb 10.6 L Hct 34.3 L MCV 103.9 MCH 32.1 MCHC 30.9 L RDW 18.3 H Plt Count 224 MPV 9.9 Gran % 50.8 Lymph % (Auto) 27.0 [place] % (Auto) 21.7 H Eos % (Auto) 0.4 L Baso % (Auto) 0.1 Gran # 4.18 Lymph # (Auto) 2.2 [place] # (Auto) 1.8 H Eos # (Auto) 0.0 Baso # (Auto) 0.01 Sodium 138 Potassium 4.6 Chloride 105 Carbon Dioxide 22 Anion Gap 15 BUN 22 H Creatinine 1.0 Est GFR ( Amer) > 60 Est GFR (Non-Af Amer) 53 Random Glucose 66 L Calcium 10.0 Phosphorus 3.8 Magnesium 2.1 Total Bilirubin 0.3 AST 49 H ALT 27 Alkaline Phosphatase 195 H Total Protein 5.9 Albumin 3.1 Globulin 2.8 Albumin/Globulin Ratio 1.1 Attending/Attestation - Attestation I have personally seen and examined this patient.: Yes I have fully participated in the care of the patient.: Yes I have reviewed all pertinent clinical information: Yes
--- NOTE | 2018-04-21 13:45 | CP.PCM.PN ---
Subjective - Date & Time of Evaluation Date of Evaluation: 04/21/18 Time of Evaluation: 10:50 - Subjective Subjective: Patient is complaining of loose bowel movement, no fevers, stools are not watery but soft. Breathing and cough are a little better. Objective - Vital Signs/Intake and Output Vital Signs (last 24 hours): Temp Pulse Resp BP Pulse Ox 97.9 F 94 H 20 148/69 96 04/20/18 08:13 04/20/18 09:54 04/20/18 08:13 04/20/18 09:54 04/20/18 08:13 Intake and Output: 04/20/18 04/20/18 06:59 18:59 Intake Total 120 Output Total 100 Balance 20 - Medications Medications: Current Medications Alprazolam (Xanax) 1 mg PO HS PRN; Protocol PRN Reason: Anxiety Stop: 04/21/18 17:37 Last Admin: 04/19/18 21:06 Dose: 1 mg Arformoterol Tartrate (Brovana) 15 mcg IH [id number] [facility] Last Admin: 04/20/18 08:14 Dose: Not Given Atorvastatin Calcium (Lipitor) 10 mg PO HS [facility] Last Admin: 04/19/18 21:04 Dose: 10 mg Budesonide (Pulmicort Respules) 0.5 mg IH [id number] [facility] Last Admin: 04/20/18 08:14 Dose: Not Given Doxycycline Hyclate (Doryx) 100 mg PO Q12 [facility]; Protocol Stop: 04/22/18 22:00 Last Admin: 04/20/18 09:54 Dose: 100 mg Enoxaparin Sodium (Lovenox) 30 mg SC DAILY [facility]; Protocol Last Admin: 04/20/18 12:43 Dose: 30 mg Famotidine (Pepcid) 20 mg PO ACBD [facility] Last Admin: 04/20/18 08:08 Dose: 20 mg Guaifenesin/Codeine Phosphate (Robitussin W/Codeine) 5 ml PO Q6 [facility] Last Admin: 04/20/18 12:43 Dose: 5 ml Piperacillin Sod/Tazobactam Sod (Zosyn 3.375 In Ns 100ml) 100 mls @ 25 mls/hr IVPB Q8 [facility]; Protocol Stop: 04/22/18 14:01 Last Admin: 04/20/18 05:52 Dose: 25 mls/hr Ipratropium [place] (Atrovent) 0.5 mg IH TIDRESP PRN PRN Reason: Shortness of Breath Levalbuterol HCl (Xopenex) 0.63 mg IH TIDRESP [facility] Last Admin: 04/20/18 08:14 Dose: Not Given Losartan Potassium (Cozaar) 25 mg PO DAILY [facility] Last Admin: 04/20/18 09:54 Dose: 25 mg Non-Formulary Medication (Cyclopentolate 2% Ophth [Cyclogyl 2% Ophth]) 1 drop OS TID [facility] Last Admin: 04/20/18 09:55 Dose: 1 drop Ondansetron HCl (Zofran Inj) 4 mg IVP Q4H PRN PRN Reason: Nausea/Vomiting Last Admin: 04/20/18 08:08 Dose: 4 mg Oxycodone HCl (Oxycodone Immediate Release Tab) 10 mg PO Q6H PRN PRN Reason: Pain, severe (8-10) Last Admin: 04/19/18 21:05 Dose: 10 mg Prednisone (Prednisone Tab) 10 mg PO DAILY [facility] Stop: 04/24/18 10:01 Senna/Docusate Sodium (Senokot S 50 Mg-8.6 Mg) 1 tab PO BID PRN PRN Reason: Constipation Vancomycin HCl (Vancocin 25 Mg/Ml (Oral Use)) 250 mg PO QID [facility]; Protocol Last Admin: 04/20/18 09:57 Dose: 250 mg - Labs Labs: 04/20/18 06:00 04/20/18 06:00 PT 13.5 SECONDS (9.4-12.5) H 04/14/18 16:00 INR 1.18 04/14/18 16:00 APTT 42.7 Seconds (25.1-36.5) H 04/14/18 16:00 - Constitutional Appears: Chronically Ill - Head Exam Head Exam: NORMAL INSPECTION - Respiratory Exam Respiratory Exam: Decreased Breath Sounds - Cardiovascular Exam Cardiovascular Exam: +S1, +S2 - GI/Abdominal Exam GI & Abdominal Exam: Soft. absent: Tenderness Assessment and Plan - Assessment and Plan (Free Text) Plan: Assessment consider post-obstructive pneumonitis on the right loose bowel movement, probably antibiotic-associated hemoptysis probably related to lung cancer stage 4 lung cancer with liver metastases on palliative chemotherapy HTN dyslipidemia bilateral cataract surgery Plan on Zosyn and Doxycycline day 7 and we can d/c antibiotics especially with the loose bowel movements - stool for C. diff. is negative overall prognosis is poor discussed with Dr. Hay previously
[2018-04-21] MEDS ORDERED: Pantoprazole 40 mg EC Tab PO SCH (22:00)
== END 2018-04-21 16:08 | disposition home health service (06) | DRG 180 ==
LOC: ED 15:02 → ERH 17:36 → 3RNO 21:02 → OBSVTOIN 04-15 07:44
PROVIDERS: ADMIT Internal Medicine Nephrology; ATTEND Internal Medicine Nephrology
PROC: DB021ZZ Beam Radiation of Lung using Photons 1 - 10 MeV (ICD-10-PCS; principal; 2018-04-19)
PROC: 0HBRXZZ Excision of Toe Nail, External Approach (ICD-10-PCS; 2018-04-21)
PROC: 0HBRXZZ Excision of Toe Nail, External Approach (ICD-10-PCS; 2018-04-21)
PROC: 0HBRXZZ Excision of Toe Nail, External Approach (ICD-10-PCS; 2018-04-21)
PROC: 0HBRXZZ Excision of Toe Nail, External Approach (ICD-10-PCS; 2018-04-21)
PROC: 0HBRXZZ Excision of Toe Nail, External Approach (ICD-10-PCS; 2018-04-21)
PROC: 0HBRXZZ Excision of Toe Nail, External Approach (ICD-10-PCS; 2018-04-21)
PROC: 0HBRXZZ Excision of Toe Nail, External Approach (ICD-10-PCS; 2018-04-21)
PROC: 0HBRXZZ Excision of Toe Nail, External Approach (ICD-10-PCS; 2018-04-21)
PROC: 0HBRXZZ Excision of Toe Nail, External Approach (ICD-10-PCS; 2018-04-21)
PROC: 0HBRXZZ Excision of Toe Nail, External Approach (ICD-10-PCS; 2018-04-21)
DX: C34.01 Malignant neoplasm of right main bronchus (principal); J18.9 Pneumonia, unspecified organism; R04.2 Hemoptysis; C78.7 Secondary malignant neoplasm of liver and intrahepatic bile duct; C79.51 Secondary malignant neoplasm of bone; J44.0 Chronic obstructive pulmonary disease with (acute) lower respiratory infection; I10 Essential (primary) hypertension; D64.9 Anemia, unspecified; E03.9 Hypothyroidism, unspecified; E78.5 Hyperlipidemia, unspecified; F03.90 Unspecified dementia, unspecified severity, without behavioral disturbance, psychotic disturbance, mood disturbance, and anxiety; F41.9 Anxiety disorder, unspecified; H54.62 Unqualified visual loss, left eye, normal vision right eye; M17.0 Bilateral primary osteoarthritis of knee; K21.9 Gastro-esophageal reflux disease without esophagitis; R73.9 Hyperglycemia, unspecified; T38.0X5A Adverse effect of glucocorticoids and synthetic analogues, initial encounter; L60.3 Nail dystrophy; Z85.828 Personal history of other malignant neoplasm of skin; Z88.2 Allergy status to sulfonamides; Z87.891 Personal history of nicotine dependence